=== PATIENT | female | born 1960 | race Caucasian/White ===

== ENCOUNTER 2017-04-19 10:03 | Emergency (ER) | payer MEDICAID ==
[2017-04-19] MEDS ORDERED: Aspirin Low Dose CHEW TAB* 81 MG PO ONE (11:17)
[2017-04-19 11:47] LABS: Hematocrit 42 % (35-47); Hemoglobin 13.9 g/dl (12.0-16.0); Mean Corpuscular HGB Conc 33 g/dl (31-36); Mean Corpuscular Hemoglobin 30 pg (27-31); Mean Corpuscular Volume 90 fL (80-97); Mean Platelet Volume 8 um3 (7.4-10.4); Red Blood Count 4.73 10^6/ul (4.0-5.4); Red Cell Distribution Width 12 % (10.5-15); White Blood Count 5.2 10^3/ul (3.5-10.8)
--- NOTE | 2017-04-19 11:58 | RAD ---
INDICATION: Chest pain. COMPARISON: Comparison is made with a prior study from November 13, 2013. TECHNIQUE: A portable view of the chest was obtained. FINDINGS: Cardiac and mediastinal contours appear to be within normal limits. The lungs are clear. No pleural effusion is seen. IMPRESSION: NO EVIDENCE FOR ACUTE DISEASE.
[2017-04-19 12:03] LABS: Albumin 3.7 g/dL (3.2-5.2); BUN/Creatinine Ratio 23.2 (8-20); Calcium 9.4 mg/dL (8.6-10.3); EGFR Non-African American 111.2 (>60); Globulin 2.8 g/dL (2-4); Potassium 4.2 mmol/L (3.5-5.0); Total Bilirubin 0.5 mg/dL (0.2-1.0); Total Protein 6.5 g/dL (6.4-8.9)
[2017-04-19 12:24] LABS: TSH (Thyroid Stimulating Horm) 1.17 mcIU/mL (0.34-5.60)
[2017-04-19 13:52] VITALS: BP 109/79
--- NOTE | 2017-04-19 18:39 | ED ---
HPI Chest Pain - HPI Summary HPI Summary: Patient presents with left sided neck pain which radiates to the right sided anterior chest and to the right posterior shoulder which has not improved with muscle relaxers. She also has been c/o fatigue recently and night sweats, although she states she has been going through menopause. She does not feel this is muscular. She is otherwise healthy. She has surgery scheduled soon for her knees, but denies other complaints. She is concerned the pain is cardiac. Pain is 8/10, intermittent and described as an aching. - History of Current Complaint Chief Complaint: EDGeneral Time Seen by Provider: 04/19/17 11:02 Timing: Intermittent, Lasting Hours Initial Severity: Moderate Current Severity: Moderate Pain Intensity: 7 Pain Scale Used: 0-10 Numeric Chest Pain Location: Right Anterior Chest Pain Radiates: Yes Chest Pain Radiates To:: Shoulder Character: Dull/Aching Aggravating Factor(s): Nothing Alleviating Factor(s): Nothing Associated Signs and Symptoms: Positive: Negative - Allergy/Home Medications Allergies/Adverse Reactions: Allergies Allergy/AdvReac Type Severity Reaction Status Date / Time No Known Allergies Allergy Verified 04/19/17 11:20 PMH/Surg Hx/FS Hx/Imm Hx Previously Healthy: Yes Endocrine/Hematology History: Denies: Hx Diabetes, Hx Thyroid Disease Cardiovascular History: Reports: Hx Angina, Hx Hypertension - better now, not on meds 02/2014, Other Cardiovascular Problems/Disorders - Cardiac cathX2 with blockage Denies: Hx Pacemaker/ICD Respiratory History: Reports: Hx Asthma, Hx Chronic Bronchitis, Hx Seasonal Allergies Denies: Hx Chronic Obstructive Pulmonary Disease (COPD) GI History: Denies: Hx Ulcer Musculoskeletal History: Reports: Hx Back Problems Sensory History: Reports: Hx Contacts or Glasses Denies: Hx Hearing Aid Opthamlomology History: Reports: Hx Contacts or Glasses Psychiatric History: Denies: Hx Panic Disorder - Cancer History Hx Chemotherapy: No Hx Radiation Therapy: No - Surgical History Surgery Procedure, Year, and Place: 2 biopsy blt breast tissue-benign, BLT foot bunions, Cardiac cath 8 years ago - Immunization History Hx Pertussis Vaccination: No Immunizations Up to Date: Unable to Obtain/Confirm Infectious Disease History: No Infectious Disease History: Denies: Hx Clostridium Difficile, Hx Hepatitis, Hx Human Immunodeficiency Virus (HIV), Hx of Known/Suspected MRSA, Hx Shingles, Hx Tuberculosis, Traveled Outside the [place] in Last 30 Days - Social History Occupation: Employed Full-time Lives: With Family Alcohol Use: Weekly Alcohol Amount: 2 ea 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) Hx Substance Use: No Substance Use Type: Reports: None Hx Tobacco Use: No Smoking Status (MU): Never Smoked Tobacco Have You Smoked in the Last Year: No Review of Systems Positive: Fatigue Eyes: Negative ENT: Negative Positive: Chest Pain Respiratory: Negative Gastrointestinal: Negative Positive: no symptoms reported, see HPI Positive: Myalgia - right sided shoulder pain Skin: Negative Neurological: Negative Psychological: Normal All Other Systems Reviewed And Are Negative: Yes Physical Exam Triage Information Reviewed: Yes Vital Signs On Initial Exam: Initial Vitals Temp Pulse Resp BP Pulse Ox 98.2 F 69 17 115/87 97 04/19/17 10:17 04/19/17 10:17 04/19/17 10:17 04/19/17 10:17 04/19/17 10:17 Vital Signs Reviewed: Yes Appearance: Positive: Well-Appearing, Well-Nourished Skin: Positive: Warm, Skin Color Reflects Adequate Perfusion Head/Face: Positive: Normal Head/Face Inspection Eyes: Positive: EOMI, ALONDRA, Conjunctiva Clear Neck: Positive: Supple, Nontender, No Lymphadenopathy Respiratory/Lung Sounds: Positive: Clear to Auscultation, Breath Sounds Present Cardiovascular: Positive: Normal, RRR, Pulses are Symmetrical in both Upper and Lower Extremities Abdomen Description: Positive: Soft Musculoskeletal: Positive: Pain @ - on palpatoin over the anterior chest and posterior right shoulder Neurological: Positive: Sensory/Motor Intact, Alert, Oriented to Person Place, Time, Speech Normal Psychiatric: Positive: Normal - [place] Coma Scale Coma Scale Total: 15 Diagnostics - Vital Signs Vital Signs Temp Pulse Resp BP Pulse Ox 04/19/17 13:30 60 12 109/79 99 04/19/17 13:00 58 20 129/105 98 04/19/17 12:30 60 17 137/95 98 04/19/17 12:00 58 17 120/79 96 04/19/17 11:39 61 12 134/84 96 04/19/17 11:00 65 17 142/83 99 04/19/17 10:44 66 21 96 04/19/17 10:34 98.2 F 66 18 137/91 96 04/19/17 10:17 98.2 F 69 17 115/87 97 - Laboratory Lab Results: Lab Results 04/19/17 04/19/17 04/19/17 Range/Units 11:25 11:25 11:25 WBC 5.2 (3.5-10.8) 10^3/ul RBC 4.73 (4.0-5.4) 10^6/ul Hgb 13.9 (12.0-16.0) g/dl Hct 42 (35-47) % MCV 90 (80-97) fL MCH 30 (27-31) pg MCHC 33 (31-36) g/dl RDW 12 (10.5-15) % Plt Count 246 (150-450) 10^3/ul MPV 8 (7.4-10.4) um3 Neut % (Auto) 58.7 (38-83) % Lymph % (Auto) 28.1 (25-47) % Ralls % (Auto) 8.3 (1-9) % Eos % (Auto) 4.0 (0-6) % Baso % (Auto) 0.9 (0-2) % Absolute Neuts (auto) 3.0 (1.5-7.7) 10^3/ul Absolute Lymphs (auto) 1.4 (1.0-4.8) 10^3/ul Absolute Monos (auto) 0.4 (0-0.8) 10^3/ul Absolute Eos (auto) 0.2 (0-0.6) 10^3/ul Absolute Basos (auto) 0 (0-0.2) 10^3/ul Absolute Nucleated RBC 0.01 10^3/ul Nucleated RBC % 0.2 INR (Anticoag Therapy) 0.90 (0.89-1.11) APTT 26.8 (26.0-36.3) seconds D-Dimer, Quantitative < 200 (Less Than 230) ng/mL Sodium 134 (133-145) mmol/L Potassium 4.2 (3.5-5.0) mmol/L Chloride 104 (101-111) mmol/L Carbon Dioxide 26 (22-32) mmol/L Anion Gap 4 (2-11) mmol/L BUN 13 (6-24) mg/dL Creatinine 0.56 (0.51-0.95) mg/dL Est GFR ( Amer) 143.0 (>60) Est GFR (Non-Af Amer) 111.2 (>60) BUN/Creatinine Ratio 23.2 H (8-20) Glucose 90 (70-100) mg/dL Lactic Acid (0.5-2.0) mmol/L Calcium 9.4 (8.6-10.3) mg/dL Magnesium 2.0 (1.9-2.7) mg/dL Total Bilirubin 0.50 (0.2-1.0) mg/dL AST 21 (13-39) U/L ALT 22 (7-52) U/L Alkaline Phosphatase 119 H (34-104) U/L Total Creatine Kinase 123 (10-223) U/L CK-MB (CK-2) 8.0 H (0.6-6.3) ng/mL Myoglobin 33.0 (14.3-65.8) ng/mL Troponin I 0.00 (<0.04) ng/mL B-Natriuretic Peptide ( - 100) pg/mL Total Protein 6.5 (6.4-8.9) g/dL Albumin 3.7 (3.2-5.2) g/dL Globulin 2.8 (2-4) g/dL Albumin/Globulin Ratio 1.3 (1-3) TSH 1.17 (0.34-5.60) mcIU/mL 04/19/17/ Range/Units 11:25 11:25 WBC (3.5-10.8) 10^3/ul RBC (4.0-5.4) 10^6/ul Hgb (12.0-16.0) g/dl Hct (35-47) % MCV (80-97) fL MCH (27-31) pg MCHC (31-36) g/dl RDW (10.5-15) % Plt Count (150-450) 10^3/ul MPV (7.4-10.4) um3 Neut % (Auto) (38-83) % Lymph % (Auto) (25-47) % Ralls % (Auto) (1-9) % Eos % (Auto) (0-6) % Baso % (Auto) (0-2) % Absolute Neuts (auto) (1.5-7.7) 10^3/ul Absolute Lymphs (auto) (1.0-4.8) 10^3/ul Absolute Monos (auto) (0-0.8) 10^3/ul Absolute Eos (auto) (0-0.6) 10^3/ul Absolute Basos (auto) (0-0.2) 10^3/ul Absolute Nucleated RBC 10^3/ul Nucleated RBC % INR (Anticoag Therapy) (0.89-1.11) APTT (26.0-36.3) seconds D-Dimer, Quantitative (Less Than 230) ng/mL Sodium (133-145) mmol/L Potassium (3.5-5.0) mmol/L Chloride (101-111) mmol/L Carbon Dioxide (22-32) mmol/L Anion Gap (2-11) mmol/L BUN (6-24) mg/dL Creatinine (0.51-0.95) mg/dL Est GFR ( Amer) (>60) Est GFR (Non-Af Amer) (>60) BUN/Creatinine Ratio (8-20) Glucose (70-100) mg/dL Lactic Acid 0.9 (0.5-2.0) mmol/L Calcium (8.6-10.3) mg/dL Magnesium (1.9-2.7) mg/dL Total Bilirubin (0.2-1.0) mg/dL AST (13-39) U/L ALT (7-52) U/L Alkaline Phosphatase (34-104) U/L Total Creatine Kinase (10-223) U/L CK-MB (CK-2) (0.6-6.3) ng/mL Myoglobin (14.3-65.8) ng/mL Troponin I (<0.04) ng/mL B-Natriuretic Peptide 27 ( - 100) pg/mL Total Protein (6.4-8.9) g/dL Albumin (3.2-5.2) g/dL Globulin (2-4) g/dL Albumin/Globulin Ratio (1-3) TSH (0.34-5.60) mcIU/mL Result Diagrams: 04/19/17 11:25 04/19/17 11:25 Lab Statement: Any lab studies that have been ordered have been reviewed, and results considered in the medical decision making process. Chest Pain Course/Dx - Course Course Of Treatment: Trop negative. UA negative. Chest xray negative. Patient encouraged to follow up with PCP regarding chest pain. Medications were reveiwed with patient. Encouarged to follow up with PCP or return to ED for worsening symptoms. Return precautions given. Patient understands and agrees with plan. Ok for discharge. - Chest Pain Differential Diagnosis/HQI/PQRI: Acute [place], Angina, CHF, Chest Wall - Diagnoses Provider Diagnoses: Chest wall pain Discharge - Discharge Plan Condition: Stable Disposition: HOME Patient Education Materials: Chest Wall Pain (ED) Referrals: Ngozi Buck MD [Primary Care Provider] - Additional Instructions: Follow up with your PCP ROSALIO Return to the ED if symptoms persist
== END 2017-04-19 13:51 | disposition home or self-care (01) ==
LOC: ED 10:03
DX: R07.89 Other chest pain (principal)
CPT/HCPCS: 36415; 71010; 80053; 82550; 82553; 83605; 83735; 83874; 83880; 84443; 84484; 85025; 85379; 85610; 85730; 93005; 99282

== ENCOUNTER 2018-03-15 11:30 | Emergency (ER) | payer MEDICAID, OTHER ==
--- OUTSIDE RECORDS SUMMARY | 2018-03-15 11:44 | XMS REPORT ---
:1960 External Reference #:[id number] Author Organization [facility] Address [address] [address] Phone [phone] Care Team Providers Name Role Phone Ngozi Saavedra MD Care Team Information Special Education Math Teacher Unavailable Payers Type Date Identification Numbers Payment Provider Subscriber Health Maintenance Policy Number: [id number] [facility] Community Plan Kirti Butterfield Organization (HMO) PayID: [id number] [address] [place] [address] Medigap Part B Policy Number: [id number] Medicaid ### >02/16/12 Kirti Butterfield PayID: [id number] [address] [place] [address] Workers Compensation Onset: 07/02/2007 Policy Number: Milind Butterfield [id number] [address] [place] [address] Problems Date Description Provider Status Onset: 05/14/2008 Benign essential hypertension Ngozi Saavedra MD Active Onset: 07/23/2015 Essential hypertension Ngozi Saavedra MD Active Onset: 05/11/2017 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 Family History Date Family Member(s) Problem(s) Comments Mother Heart Disease Mother due to ME () Onset: (age 38 Mother ME CABG, AT 58 FROM Years) ME First Brother Diabetes, Adult Paternal Grandmother Cancer, Ovarian Maternal Grandmother Diabetes, Adult Paternal Aunts Cancer, Ovarian Maternal Aunts Heart Disease Third Maternal Aunt due to Kidney () Disease Social History Type Date Description Comments Marital Status Smoke-Free Smoke-Free Home Yes Pets 2 dogs Occupation Currently Working [employer] RIGHT-handed Cigarette Use Never Smoked Cigarettes ETOH Use Occasionally consumes alcohol Recreational Drug Use Denies Drug Use Smoking Patient has never smoked Allergies, Adverse Reactions, Alerts Date Description Reaction Status Severity Comments 04/12/2017 NKDA active 09/15/2005 NKDA inactive Medications Medication Date Status Form Strength Qnty SIG Indications Ordering Provider Tobramycin-Dexamet 03/10 Active Suspension 0.3-0.1% 10ml 2 drop in H00.012 mecca RIGHT eye Ngozi every 6 MD Romain hours for 7days Baclofen 03/10 Active Tablets 10mg 60tab take 1 M54.2 Quentin s tablet by Ngozi mouth up MD Romain to two times a day as needed for muscle response Tramadol HCL 03/10 Active Tablets 50mg 45tab 1tab by M54.2 Quentin s mouth up Ngozi to two MD Romain times daily prn extreme pain Meloxicam 12/13 Active Tablets 15mg 30tab take 10/05 M05.769 Quentin s to 1 Ngozi tablet by MD Romain mouth once daily as needed Vitamin D 12/13 Active Capsules 27130Xpgh 8caps 1 by Quentin, (Ergocalciferol) mouth qwk Ngozi x 8 wks MD Romain Vitamin D 12/13 Active Capsules 2000Unit 1 by E55.9 Osiris mouth Ngozi every day MD Romain Amoxicillin 09/14 Active Tablets 500mg 21tab 1 by K08.89 Quentin s mouth Ngozi three MD Romain times a day Hydroxychloroquine 05/11 Active Tablets 200mg 60tab 1 by M06.00 Quentin , s mouth Ngozi twice a MD Romain day Duloxetine HCL 04/[address] 60mg 60cap take one M06.00 Quentin Part s capsule Ngozi by mouth MD Romain bid Phentermine HCL 02/19 Active Capsules 30mg 30cap take one E66.9 Quentin s capsule Ngozi by mouth MD Romain every morning; maximum daily dose=1 Z68.32 Folic Acid 07/05 Hx Tablets 1mg 90tab 1 by mouth M06.0 Quentin s every day 0 Ngozi MD Romain - 08/06 Carisoprodol 07/05 Hx Tablets 350mg 30tab 1/2-1 by M54.2 Quentin s mouth every Ngozi Hoyos MD - night at 03/10 bedtime as needed muscle spasm Hydrocodone-Acetaminophe 07/05 Hx Tablets 5-325 30tab 1 by mouth M17.0 Quetnin, mg s three times a Ngozi Hoyos MD - day as needed 12/13 Vitamin D-400 07/05 Hx Tablets 400Un 1 by mouth E55.9 Quentin it every day Ngozi Hoyos MD - 12/13 Prednisone 07/05 Hx Tablets 10mg 30tab 4tabs qam x 3 M06.0 Quentin s days then 3 0 Ngozi Hoyos MD - po qam x 3d 08/06 then 2 po qam x 3d then 1 po qam x 3 d Gabapentin 07/05 Hx Tablets 600mg 90tab Take One N95.1 Quentin s Tablet By Ngozi Hoyos MD - Mouth Three 12/13 Times A Day Gabapentin 07/02 Hx Capsules 300mg 60cap Take 1 To 2 N95.1 Quentin s Capsuls By Ngozi Hoyos MD - Mouth Every 07/05 Night, Then May Increase To 1 Capsule Two Times A Day And 2 Every Night AT Bedtime Hydroxychloroquine 06/03 Hx Tablets 200mg mecca, Ngozi Hoyos MD - 07/05 Methotrexate 06/03 Hx Tablets 2.5mg 48tab 4 by mouth M06.0 Quentin s every week 0 Ngozi Hoyos MD - 08/06 Prednisone 05/11 Hx Tablets 5mg 1 by mouth M06.0 Quentin every day 0 Ngozi Hoyos MD - 07/05 Lidoderm 04/22 Hx Patches 5% 30uni one every day Omayra ts on for 12 and Melissa Romero, - then off for RN MS [employer] 05/11 12 hours Duloxetine HCL 04/[address] Part 30mg 7caps 1 by mouth M19.9 Quentin every day x 1 0 Ngozi Hoyos MD - week 05/11 Meloxicam 03/02 Hx Tablets 15mg 30tab take 1/2 - 1 M17.0 s tablet Ngozi Hoyos MD - everyday as 05/11 needed Gabapentin 03/02 Hx Capsules 300mg 60cap take 1 to 2 N95.1 s capsules by Ngozi Hoyos MD - mouth every 05/11 night at bedtime then may inc to 1 by mouth twice a day 2 every night at bedtime Naproxen 12/04 Hx Tablets 500mg 60tab take 1 tablet M54.5 s by mouth Melissa C, - every 12 RN [facility] 03/02 hours needed for pain Cyclobenzaprine HCL 12/04 Hx Tablets 10mg 30tab take one-half M54.5 s tablet by Ngozi Hoyos MD - mouth every 8 05/11 hours needed for muscle spasm. may take 1 tablet at bedtime Lidocaine 12/04 Hx Patches 5% 30uni apply daily M54.5 ts for 12 hours Melissa Romero, - and remove RN [facility] 04/02 for 12 hours Macrobid 12/04 Hx Capsules 100mg 14cap 1 tab by R31.9 s mouth twice a Mleissa Romero, - day x 7 d RN [facility] 03/02 Meloxicam 10/08 Hx Tablets 7.5mg 90tab take 1 to 2 M17.0 s tablets by Melissa Romero, - mouth every RN [facility] Naprosyn 07/06 Hx Tablets 500mg 60tab take one M17.0 s tablet by Ngozi Hoyos MD - mouth two 10/08 times a day with food as needed Celebrex 10/28 Hx Capsules 200mg 1 po qd to M23.3 bid prn prn 07 Ngozi Hoyos MD - 07/06 Dexilant 07/[address] 60mg 30cap 1 by mouth K29.0 s bid x 2 d 0 Ngozi Hoyos MD - 07/06 Duloxetine HCL [address] Part 30mg 7caps 1 by mouth M79.1 every day x 1 Ngozi Hoyos MD - week then 60 / mg every day /2014 Amoxicillin 07/23 Hx Tablets 875mg 20tab 1 by mouth J01.0 s twice a day 0 Ngozi Hoyos MD - 07/29 Fluticasone Propionate 07/23 Hx Suspension 50mcg 16gm 2 sprays in J01.0 [place], / each nostril 0 Ngozi Hoyos MD - daily 10/08 Duloxetine HCL 07/[address] Part 60mg 60cap 1 by mouth M79.1 s every day Ngozi Hoyos MD - 07/06 Alprazolam 02/04 Hx Tablets 0.25m 20tab 1/2-2 by F41.0 Quentin g s mouth three Ngozi Hoyos MD - times a day 07/06 as needed anxiety/insom black Meloxicam 04/12 Hx Tablets 7.5mg 30tab take 1-2 M17.0 s tablet by Melissa Romero, - mouth every RN [facility] 07/06 day for pain Hydrocodone-Acetaminophe 04/12 Hx Tablets 5-325 30tab 1-2 tab by M17.0 Osiris, mg s mouth twice a Ngozi Hoyos MD - day as needed 05/11 pain Cyclobenzaprime 04/12 Hx Tablets 10mg 30tab 1 tab at 401.1 s bedtime as Melissa Romero, - needed muscle RN MS [facility] 04/12 spasm Cyclobenzaprine HCL 04/12 Hx Tablets 10mg 30tab 1 every night 723.1 Niki Diaz s at bedtime MD Bessie - and 1/2 tab 20 every 8 hours as needed muscle spasm. Cipro 04/27 Hx Tablets 250mg 14tab 1 po bid x 7 788.4 s days 1 Melissa Romero, - RN MS [facility] 04/12 Phentermine HCL 03/17 Hx Capsules 30mg 30cap 1 by mouth 278.0 s every in the 2 Melissa Romero, - morning RN MS [facility] 02/04 Cipro 05/16 Hx Tablets 250mg 14tab 1 po bid 599.7 [place] s 0 Ngozi Hoyos MD - 03/17 Oxycodone/Acetaminophen 05/16 Hx Tablets 5-325 20tab 1-2 po qid 724.2 Omayra mg s prn pain Melissa Romero, Airam [employer]ER MS [employer] 04/12 724.1 Cephalexin 01/11/2012 - Hx Capsules 500mg 21caps 1 po tid 682.9 [facility] , 03/17/2013 Ngozi Hoyos MD Hydrocodone/Acet 01/11/2012 - Hx Tablets 5-500mg 30tabs 1-2 po 724.1 [place], aminophen 04/12/2014 qid prn Melissa Romero RN MS [facility] 724.2 Lisinopril 01/11/2012 - Hx Tablets 10mg 90tabs take one I10 [place], 07/06/2016 tablet by Melissa mouth every JOHANNA Romero MS day [employer] Azithromycin 11/27/2011 - Hx Tablets 250mg 1Pack 2 tabs day 466.0 [facility], 01/11/2012 one and 1 tab Ngozi daily etta Hoyos MD gone Out Of Work 06/03/2011 - Hx For may return to [place], 06/13/2011 Medical full duty on Melissa Reasons jun. 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 No Work 04/20/2011 - Hx For 04/13- 04/27, 789.0 [place], 04/30/2011 Medical returning to 4 Melissa Reasons full duty on JOHANNA Romero MS 04/27/11 [employer] Amoxicillin 04/13/2011 - Hx Tablets 875mg 20tabs 1 po bid [facility], 04/30/2011 Ngozi Hoyos MD Azithromycin 10/23/2010 - Hx Tablets 250mg 6tabs 2 tabs day [facility], 04/20/2011 one and 1 tab Ngozi daily MD ji Marks Robitussin ac 10/17/2010 - Hx 120ml 10 ml qid prn 461.0 [place], 04/20/2011 Ngozi Hoyos MD Amoxicillin 10/17/2010 - Hx Tablets 500mg 30tabs 1 po tid 461.0 [place] , 04/20/2011 Ngozi Hoyos MD Carisoprodol 06/23/2010 - Hx Tabs 350mg 30tabs take 1 tablet 401.1 [place], 04/12/2014 by mouth Melissa every 8 hours Heather RN MS and at [facility] bedtime as needed for muscle spasms Blood Draw 02/04/2010 - Hx cbc, cmp, 278.0 [place], 07/15/2010 lipid panel, 2 Ngozi TSH, 25 oh MD Romain vit D, insulin, iron panel dx: heavy menses, weight gain Clarinex 02/04/2010 - Hx Tablets 5mg 90tabs 1 po qd prn 477.0 [place], 03/17/2013 Ngozi Hoyos MD Hydrocodone-Acet 11/01/2009 - Hx Tablets 5-500mg 40tabs 1-2 po qid 724.1 [place], aminophen 01/11/2012 prn Ngozi Hoyos MD Work Note 11/01/2009 - Hx PT had 724.1 [place], 11/06/2009 appt today Ngozi Hoyos MD Celebrex 11/01/2009 - Hx Capsules 200mg Sample 1 po qd bid X 724.1 [place], 11/11/2009 A Few Days Ngozi Hoyos MD Astepro 10/14/2009 - Hx Solution 0.15% 2 P Bilat qd 461.0 [place], 07/15/2010 Ngozi Hoyos MD Amoxicillin 10/14/2009 - Hx Tablets 875mg 20tabs 1 po bid 461.0 [place] , 11/01/2009 Ngozi Hoyos MD Robitussin ac 06/24/2009 - Hx 120ml 10 ml qid prn 466.0 [place], 10/14/2009 Ngozi Hoyos MD Amoxicillin 06/24/2009 - Hx Capsules 500mg 30caps 1 po tid 10 466.0 [place], 10/14/2009 days Ngozi Hoyos MD Work Note 06/24/2009 - Hx pl excuse 466.0 [place], 10/14/2009 from work Ngozi today and MD Romain tomm Work Note 03/15/2009 - Hx please excuse 465.9 [place], 03/20/2009 from work Ngozi 03/12-03/15 MD Romain Amoxicillin 12/07/2008 - Hx Tablets 875mg 28tabs 1 po bid 383.0 [place] , 03/15/2009 0 Ngozi Hoyos MD Azithromycin 11/01/2008 - Hx Tablets 250mg 6tabs 2 tabs day 465.9 [place], 11/11/2008 one and 1 tab Melsisa daily till Heather RN MS gone [employer]ISING [employer] No Work 11/01/2008 - Hx D/T 11/01, 11/02/08 465.9 [place], 03/15/2009 Illness May return to Melissa full duty Heather RN MS next [employer] scheduled day, Blood Draw 08/27/2008 - Hx cbc, cmp, [place], 11/01/2008 TSH, lipid Ngozi Hoyos MD dx: HTN, 272.0 Phentermine HCL 07/30/2008 - Hx Capsules 30mg 30caps 1 po q am 278.0 [place], 03/17/2013 2 Ngozi Hoyos MD Ibuprofen 07/30/2008 - Hx Tablets 800mg 90tabs One PO Q8HRS 401.1 [place], 04/12/2014 With Food prn Ngozi Hoyos MD Keflex 07/30/2008 - Hx Capsules 500mg 21caps 1 PO tid X 7 682.8 [place] , 08/27/2008 D Ngozi Hoyos MD Diflucan 04/13/2008 - Hx Tablets 150mg 1tabs One Tab PO [place], 11/01/2008 Times One Day Ngozi Hoyos MD Lisinopril 02/21/2008 - Hx Tablets 10mg 90tabs 1 PO qd 401.1 [place], 07/15/2010 Ngozi Hoyos MD Phentermine HCL 01/24/2008 - Hx Capsules 15mg 30caps 1 po qam [place], 07/30/2008 Ngozi Hoyos MD Blood Draw 01/20/2008 - Hx bmp, serum [place], 08/27/2008 osmolarity, Ngozi lipid panel, MD Romain ast/alt dx: hyponatremia, 272.2 Blood Draw 12/02/2007 - Hx cbc, cmp, 272.0 [facility], 01/20/2008 TSH, lipid Ngozi Hoyos MD dx: 272.0, wt gain Zithromax Z-Yan 12/02/2007 - Hx Tablets 250mg 1Pack as Dir 466.0 [facility], 02/21/2008 Ngozi Hoyos MD Xanax 12/02/2007 - Hx Tablets 0.25mg 12tabs one half-two 308.9 [facility], 11/01/2008 po tid prn Ngozi anxiety MD Romain Darvocet-N 100 08/12/2007 - Hx Tablets 100 40tabs 1 po qid prn 401.1 [facility], 11/01/2008 pain Ngozi Hoyos MD Phentermine HCL 07/15/2007 - Hx Capsules 30mg 30caps 1 po q am [facility] , 12/02/2007 Ngozi Hoyos MD Lidoderm 04/01/2007 - Hx Patches 5% 30units Apply as [place], 11/01/2008 Directed 1-3 Melissa Patches On X JOHANNA Romero MS 12 HRS [employer]ISING [employer] Oxycodone & 01/10/2007 - Hx Caplets 5mg;500 40caps 1 tab every 4 401.1 [place], Acetaminophen 07/15/2007 mg hours as Melissa needed for JOHANNA Romero MS pain [employer] Fastin 01/10/2007 - Hx 15mgS 30units 1 qd [place], 07/15/2007 Melissa Romero RN MS [employer] Soma 12/28/2006 - Hx Tablets 350mg 30tabs 1 tab every 8 [facility], 06/23/2010 hrs and hs Ngozi prn muscle MD Romain spasms. Amoxicillin 09/29/2006 - Hx Tablets 875mg 20tabs 1 PO bid 465.9 [place], 10/09/2006 Melissa Romero RN MS [employer] Robitussin A-c 09/29/2006 - Hx Syrup 100mg;10m 120ml 1-2 tsp q4 465.9 [place], 10/09/2006 g/5ML hrs prn cough Melissa Romero RN MS [employer] Entex Pse 09/29/2006 - Hx Tablets 600mg;120 20tabs one tab qd 465.9 [place], 10/09/2006 mg for Melissa sinus/chest Heather RN MS congestion [employer] Out Of Work 09/29/2006 - Hx Due To An 09/29-10/02. 465.9 [place], 11/10/2006 Illness may return Melissa Romero RN MS scheduled day [employer]ISING [employer] to full duty. Ibuprofen 05/18/2006 - Hx Tablets 800mg 100tabs 1 Q6 HRS prn 726.7 [place], 08/12/2007 Pain 3 Melissa Romero RN MS [employer] Clarinex 02/02/2006 - Hx Tablets 5mg 30tabs 1 PO qd prn V15.0 [place], 11/01/2008 9 Melissa Romero RN MS [employer] Fastin 12/01/2005 - Hx 30mg 30units 1 po qd in am 278.0 [facility], 01/10/2007 0 Ngozi Hoyos MD Mobic 12/01/2005 - Hx Tablets 7.5mg 90tabs 1-2 PO qd 959.1 [facility], 07/30/2008 1 Ngozi Hoyos MD Naproxen 10/06/2005 - Hx Tablets 500mg 60tabs 1 po bid prn 717.3 [facility], 12/01/2005 with food Ngozi Hoyos MD Physical Therapy 10/06/2005 - Hx eval and 401.1 [facility], 10/07/2005 treat r knee Ngozi pain and MD Romain cerviclagia Levaquin 09/15/2005 - Hx Tablets 750mg 7tabs 1 po qd 466.0 [facility], 10/06/2005 Ngozi Hoyos MD Albuterol Mdi 09/15/2005 - Hx 1Can 2 p qid prn 466.0 [facility], 10/06/2005 Ngozi Hoyos MD Robitussin ac 09/15/2005 - Hx 120cc 10 ml qid 466.0 [facility], 10/06/2005 Ngozi Hoyos MD Darvocet N 100 11/04/2004 - Hx Tablets 100mg;650 40tabs 1-2 po qid [place], 10/06/2005 mg prn pain Melissa Romero RN MS [employer] Soma 11/04/2004 - Hx Tablets 350mg 30tabs 1 hs prn Omayra, 10/06/2005 muscle spasms Melissa Romero RN MS [employer] Amoxicillin 11/04/2004 - Hx Capsules 500mg 30caps 1 po tid Omayra, 09/15/2005 Melissa Romero RN MS [employer] Robitussin A-c 11/04/2004 - Hx Syrup 100mg;10m 120ml 1-2 tsp q4 Omayra , 09/15/2005 g/5ML hrs prn cough Melissa Romero RN MS [employer] Medications Administered in Office Medication Date Status Form Strength Qnty SIG Indications Ordering Provider Depo Medrol 80 Administered Injection [place], MG 017 Ngozi Hoyos MD Depo Medrol 80 Administered Injection [place], MG 017 Ngozi Hoyos MD Depo Medrol 80 Administered Injection [place], MG 015 Ngozi MD Romain Depo Medrol 80 Administered Injection [place], MG 015 Ngozi MMD Torodol Administered Injection [place], Injection 15 010 Ngozi MG Dose M, Torodol Administered Injection [place], Injection 15 010 Ngozi MG Dose MMD Torodol Administered Injection [place], Injection 15 010 Ngozi MG Dose M, Torodol Administered Injection [place], Injection 15 010 Ngozi MG Dose MD Romain Immunizations CPT Code Status Date Vaccine Lot # [id number] Given 07/23/2015 Influenza Vac, 3 Yrs & Older, Quadrivalent, [id number] [place] Use [id number] Given 02/04/2010 Tdap (Adacel) Ages 7 And Above Only [id number] Refused 07/05/2017 Influenza Vac, 3 Yrs & Older, Quadrivalent, Split, [place] Use [id number] Refused 03/02/2017 Influenza Vac, 3 Yrs & Older, Quadrivalent, Split, Im Use Vital Signs Date Vital Result Comment 03/10/2018 Weight 207.25 lb Heart Rate 94 /min BP Systolic 142 mmHg BP Diastolic 85 mmHg Height 66 inches 5'6" BMI (Body Mass Index) 33.4 kg/m2 12/13/2017 Weight 203.00 lb Heart Rate 84 /min BP Systolic 124 mmHg BP Diastolic 68 mmHg Height 66 inches 5'6" BMI (Body Mass Index) 32.8 kg/m2 09/14/2017 Body Temperature 98.4 F Weight 203.00 lb Heart Rate 88 /min BP Systolic 114 mmHg BP Diastolic 78 mmHg Height 66 inches 5'6" BMI (Body Mass Index) 32.8 kg/m2 08/06/2017 Weight 202.00 lb Heart Rate 80 /min BP Systolic 138 mmHg BP Diastolic 84 mmHg Height 66 inches 5'6" BMI (Body Mass Index) 32.6 kg/m2 07/05/2017 Weight 202.00 lb Heart Rate 80 /min BP Systolic 140 mmHg BP Diastolic 88 mmHg Height 66 inches 5'6" BMI (Body Mass Index) 32.6 kg/m2 05/11/2017 Weight 202.12 lb Heart Rate 86 /min BP Systolic 138 mmHg BP Diastolic 86 mmHg Height 66 inches 5'6" BMI (Body Mass Index) 32.6 kg/m2 Urine Dipstick - Blood NEGATIVE Urine Dipstick - Protein NEGATIVE Urine Dipstick - Glucose NEGATIVE Urine Dipstick - Leukocytes TRACE 04/22/2017 Weight 202.12 lb Heart Rate 93 /min BP Systolic 115 mmHg BP Diastolic 78 mmHg Height 66 inches 5'6" BMI (Body Mass Index) 32.6 kg/m2 04/02/2017 Weight 201.00 lb Heart Rate 76 /min BP Systolic 132 mmHg BP Diastolic 82 mmHg Height 66 inches 5'6" BMI (Body Mass Index) 32.4 kg/m2 03/02/2017 Weight 200.00 lb Heart Rate 76 /min BP Systolic 140 mmHg BP Diastolic 88 mmHg Height 66 inches 5'6" BMI (Body Mass Index) 32.3 kg/m2 12/04/2016 Body Temperature 97.8 F Weight 197.38 lb Heart Rate 70 /min BP Systolic 127 mmHg BP Diastolic 84 mmHg Height 66 inches 5'6" BMI (Body Mass Index) 31.9 kg/m2 10/08/2016 Weight 199.50 lb Heart Rate 81 /min BP Systolic 154 mmHg BP Diastolic 86 mmHg Height 66 inches 5'6" BMI (Body Mass Index) 32.2 kg/m2 07/06/2016 Weight 204.00 lb Heart Rate 84 /min BP Systolic 124 mmHg BP Diastolic 76 mmHg Height 66 inches 5'6" BMI (Body Mass Index) 32.9 kg/m2 10/28/2015 Weight 205.12 lb Heart Rate 99 /min BP Systolic 115 mmHg BP Diastolic 79 mmHg Height 66 inches 5'6" BMI (Body Mass Index) 33.1 kg/m2 07/29/2015 Weight 202.00 lb Heart Rate 76 /min BP Systolic 138 mmHg BP Diastolic 84 mmHg Height 66 inches 5'6" BMI (Body Mass Index) 32.6 kg/m2 07/23/2015 Weight 203.00 lb Heart Rate 77 /min BP Systolic 100 mmHg BP Diastolic 71 mmHg Height 66 inches 5'6" BMI (Body Mass Index) 32.8 kg/m2 02/19/2015 Weight 198.38 lb Heart Rate 73 /min BP Systolic 129 mmHg BP Diastolic 86 mmHg Height 66 inches 5'6" BMI (Body Mass Index) 32.0 kg/m2 02/04/2015 Weight 196.00 lb Heart Rate 80 /min BP Systolic 132 mmHg BP Diastolic 86 mmHg Height 66 inches 5'6" BMI (Body Mass Index) 31.6 kg/m2 04/12/2014 Weight 208.00 lb Heart Rate 81 /min BP Systolic 150 mmHg BP Diastolic 91 mmHg 04/27/2013 Weight 192.00 lb Heart Rate 82 /min BP Systolic 109 mmHg BP Diastolic 75 mmHg 03/17/2013 Weight 197.00 lb Heart Rate 82 /min BP Systolic 142 mmHg Has Not Taken BP Meds BP Diastolic 87 mmHg Has Not Taken BP Meds 05/16/2012 Weight 191.00 lb Heart Rate 76 /min BP Systolic 120 mmHg BP Diastolic 80 mmHg Height 66 inches 5'6" BMI (Body Mass Index) 30.8 kg/m2 01/11/2012 Weight 194.00 lb Heart Rate 96 /min BP Systolic 143 mmHg BP Diastolic 85 mmHg 11/27/2011 Body Temperature 97.5 F Weight 192.00 lb Heart Rate 72 /min BP Systolic 140 mmHg BP Diastolic 88 mmHg BP Systolic Recheck 125 mmHg BP Diastolic Recheck 80 mmHg Height 66 inches 5'6" BMI (Body Mass Index) 31.0 kg/m2 04/30/2011 Weight 190.00 lb Heart Rate 75 /min BP Systolic 124 mmHg BP Diastolic 77 mmHg 04/20/2011 Weight 194.00 lb Heart Rate 68 /min BP Systolic 122 mmHg BP Diastolic 75 mmHg 10/17/2010 Body Temperature 97.2 F Weight 201.00 lb Heart Rate 80 /min BP Systolic 130 mmHg BP Diastolic 80 mmHg 07/15/2010 Weight 192.00 lb Heart Rate 80 /min BP Systolic 130 mmHg BP Diastolic 78 mmHg 02/04/2010 Weight 202.00 lb Heart Rate 80 /min BP Systolic 130 mmHg BP Diastolic 76 mmHg 11/01/2009 Weight 201.00 lb Heart Rate 76 /min BP Systolic 110 mmHg BP Diastolic 70 mmHg 10/14/2009 Body Temperature 97.1 F Weight 201.00 lb Heart Rate 80 /min BP Systolic 120 mmHg BP Diastolic 78 mmHg 06/24/2009 Weight 195.00 lb Heart Rate 91 /min BP Systolic 143 mmHg BP Diastolic 95 mmHg 03/15/2009 Body Temperature 98.1 F Weight 191.00 lb Heart Rate 68 /min BP Systolic 110 mmHg BP Diastolic 76 mmHg 12/07/2008 Body Temperature 97.2 F Weight 193.00 lb Heart Rate 80 /min BP Systolic 130 mmHg BP Diastolic 70 mmHg 11/01/2008 Body Temperature 97.3 F Weight 194.00 lb Heart Rate 78 /min BP Systolic 129 mmHg BP Diastolic 79 mmHg 10/26/2008 Weight 195.00 lb Heart Rate 64 /min BP Systolic 128 mmHg BP Diastolic 66 mmHg 08/27/2008 Weight 200.00 lb Heart Rate 80 /min BP Systolic 130 mmHg BP Diastolic 70 mmHg 07/30/2008 Body Temperature 97.3 F Weight 198.00 lb Heart Rate 76 /min BP Systolic 110 mmHg BP Diastolic 78 mmHg 05/14/2008 Weight 199.00 lb Heart Rate 84 /min BP Systolic 112 mmHg BP Diastolic 64 mmHg 02/21/2008 Weight 200.00 lb Heart Rate 82 /min BP Systolic 140 mmHg BP Diastolic 96 mmHg 12/02/2007 Weight 208.00 lb Heart Rate 87 /min BP Systolic 131 mmHg BP Diastolic 87 mmHg Urine Dipstick - Blood NEGATIVE Urine Dipstick - Protein NEGATIVE Urine Dipstick - Glucose NEGATIVE 08/12/2007 Weight 204.00 lb Heart Rate 80 /min BP Systolic 150 mmHg BP Diastolic 100 mmHg 07/15/2007 Weight 203.00 lb Heart Rate 76 /min BP Systolic 140 mmHg BP Diastolic 88 mmHg 01/10/2007 Weight 202.00 lb Heart Rate 64 /min BP Systolic 126 mmHg BP Diastolic 80 mmHg 09/29/2006 Body Temperature 97.5 F Weight 196.00 lb Heart Rate 70 /min BP Systolic 156 mmHg BP Diastolic 86 mmHg 07/08/2006 Weight 194.00 lb Heart Rate 90 /min BP Systolic 138 mmHg BP Diastolic 84 mmHg 05/18/2006 Weight 194.00 lb Heart Rate 88 /min BP Systolic 120 mmHg BP Diastolic 86 mmHg 02/02/2006 Weight 199.00 lb Heart Rate 80 /min BP Systolic 128 mmHg BP Diastolic 78 mmHg 12/01/2005 Weight 210.00 lb Heart Rate 72 /min BP Systolic 142 mmHg BP Diastolic 88 mmHg 10/06/2005 Weight 195.00 lb Heart Rate 74 /min BP Systolic 131 mmHg BP Diastolic 84 mmHg 09/15/2005 Body Temperature 98.1 F Weight 209.00 lb Heart Rate 88 /min BP Systolic 133 mmHg BP Diastolic 81 mmHg 11/04/2004 Body Temperature 98.6 F Weight 205.00 lb Heart Rate 76 /min BP Systolic 132 mmHg BP Diastolic 82 mmHg Urine Dipstick - Blood NEGATIVE Urine Dipstick - Protein NEGATIVE Urine Dipstick - Glucose NEGATIVE Results Test Date Test Result H/L Range Note Laboratory test finding 03/10/2018 Ferritin <pending> Laboratory test finding 03/10/2018 Folate <pending> Vit D 25Oh <pending> Laboratory test finding 12/13/2017 [facility] Pap SEE NOTE 1 CBC With Auto Diff 12/13/2017 WBC 5.5 K/uL 4.1-11.0 2 RBC 4.95 M/uL 4.00-5.40 2 Hemoglobin 14.6 gm/dL 12.0-16.0 2 Hematocrit 42.6 % 36.0-47.0 2 MCV 86.1 fL 80.0-97.0 2 MCH 29.6 pg 27.0-32.0 2 MCHC 34.3 g/dL 32.0-36.0 2 RDW 12.7 % 11.5-14.5 2 PLT Count 276 K/ul 140-400 2 MPV 8.7 [place] 7.1-10.7 2 Neutrophil 58.3 % 35.0-75.0 2 Lymphocyte 30.4 % 16.0-52.0 2 Monocyte 7.3 % 2.0-10.0 2 Eosinophil 3.0 % 0.0-5.0 2 Basophil 1.0 % 0.0-4.0 2 Abs Neutrophils 3.2 K/uL 2.1-8.0 2 Abs Lymphocytes 1.7 K/uL 0.8-5.5 2 Abs Monocytes 0.4 K/uL 0.1-1.0 2 Abs Eosinophils 0.2 K/uL 0.0-0.5 2 Abs Basophils 0.1 K/uL 0.0-0.3 2 Comprehensive Met Panel-FCMG 12/13/2017 Sodium 142 mmol/L 135-146 2, 3 Potassium 4.1 mmol/L 3.5-5.2 2 Chloride# 106 mmol/L 97-110 2, 4 Carbon Dioxide 28 mmol/L 24-34 2 Glucose 87 mg/dL 70-105 2 BUN 15 mg/dL 6-26 2 Creatinine 0.5 mg/dL 0.5-1.4 2 Calcium 10.0 mg/dL 8.5-10.2 2 Total Protein 6.2 g/dL 6.0-8.0 2 Albumin 4.1 g/dL 3.6-4.9 2 Globulin 2.1 g/dL 2.0-3.5 2 A/G Ratio 2.0 Ratio 1.0-2.2 2 Total Bilirubin 0.4 mg/dL 0.1-1.3 2 Alkaline Phosphatase 141 U/L High 24-140 2 Alt 23 U/L 3-42 2 Ast 21 U/L 8-42 2 Lucero Egfr >60 >60 2, 5 Non Lucero Egfr >60 >60 2, 6 Anion Gap 8 mmol/L 5-15 2, 7 Lipid 12/13/2017 Cholesterol 219 mg/dL High 50-199 2 Triglycerides 329 mg/dL High 30-200 2 HDL 53 mg/dL 35-85 2, 8 Chol/ HDL Ratio 4.1 ratio 3.7-5.6 2 VLDL 66 mg/dL High 2-29 2 LDL (Calc) 100 mg/dL High 20-99 2, 9 Laboratory test finding 12/13/2017 TSH 1.66 uIU/mL 0.35-4.94 2 Vitamin D 25 Hydroxy 17 ng/mL Low 30-100 2, 10 Iron Panel 12/13/2017 Iron, Total 122 g/dL 50-170 2 Transferrin 268.0 mg/dL 203.0-362.0 2 Tibc (calc) 375 g/dL 261-478 2 % Iron Saturation 32.5 % 13.0-45.0 2 Alk Phos Isoenzymes-RL 12/13/2017 Alk Phos Total 159 U/L High 2, 11 Alk Phos Liver Calc 102 U/L High 2, 12 Alk Phos Bone Calc 57 U/L High 2, 13 Alk Phos Other Calc 0 U/L 2, 14 CBC With Auto Diff 07/05/2017 WBC 5.3 K/uL 4.1-11.0 2 RBC 4.81 M/uL 4.00-5.40 2 Hemoglobin 14.4 gm/dL 12.0-16.0 2 Hematocrit 42.6 % 36.0-47.0 2 MCV 88.6 fL 80.0-97.0 2 MCH 29.9 pg 27.0-32.0 2 MCHC 33.7 g/dL 32.0-36.0 2 RDW 13.1 % 11.5-14.5 2 PLT Count 300 K/ul 140-400 2 MPV 8.5 FL 7.1-10.7 2 Neutrophil 60.2 % 35.0-75.0 2 Lymphocyte 29.2 % 16.0-52.0 2 Monocyte 6.7 % 2.0-10.0 2 Eosinophil 2.9 % 0.0-5.0 2 Basophil 1.0 % 0.0-4.0 2 Abs Neutrophils 3.2 K/uL 2.1-8.0 2 Abs Lymphocytes 1.6 K/uL 0.8-5.5 2 Abs Monocytes 0.4 K/uL 0.1-1.0 2 Abs Eosinophils 0.2 K/uL 0.0-0.5 2 Abs Basophils 0.1 K/uL 0.0-0.3 2 Comprehensive Met Panel-FCM 07/05/2017 Sodium 142 mmol/L 135-146 2, 15 Potassium 4.4 mmol/L 3.5-5.2 2 Chloride# 104 mmol/L 97-110 2, 16 Carbon Dioxide 28 mmol/L 24-34 2 Glucose 151 mg/dL High 70-105 2 BUN 15 mg/dL 6-26 2 Creatinine 0.6 mg/dL 0.5-1.4 2 Calcium 10.2 mg/dL 8.5-10.2 2 Total Protein 6.7 g/dL 6.0-8.0 2 Albumin 4.2 g/dL 3.6-4.9 2 Globulin 2.5 g/dL 2.0-3.5 2 A/G Ratio 1.7 Ratio 1.0-2.2 2 Total Bilirubin 0.4 mg/dL 0.1-1.3 2 Alkaline Phosphatase 136 U/L 24-140 2 Alt 24 U/L 3-42 2 Ast 20 U/L 8-42 2 Lucero Egfr >60 >60 2, 17 Non Lucero Egfr >60 >60 2, 18 Anion Gap 10 mmol/L 7-16 2, 19 Laboratory test finding 07/05/2017 Esr 9 mm/hr 0-20 2 Vit D25oh 35 ng/mL 31-100 2 Alk Phos Isoenzymes-RL 07/05/2017 Alk Phos Total 153 U/L High 2, 20 Alk Phos Liver Calc 99 U/L High 2, 21 Alk Phos Bone Calc 54 U/L 2, 22 Alk Phos Other Calc 0 U/L 2, 23 Alk Phos Isoenzymes-RL 03/02/2017 Alk Phos Total 149 U/L High 24, 25 Alk Phos Liver Calc 106 U/L High 24, 26 Alk Phos Bone Calc 43 U/L 24, 27 Alk Phos Other Calc 0 U/L 24, 28 Laboratory test finding 03/02/2017 Uric Acid 4.7 mg/dL 2.6-7.6 29 Esr 14 mm/hr 0-20 29 Basic (BMP) 03/02/2017 Sodium 139 mmol/L 135-146 29, 30 Potassium 4.2 mmol/L 3.5-5.2 29 Chloride# 106 mmol/L 97-110 29, 31 Carbon Dioxide 25 mmol/L 24-34 29 Glucose 96 mg/dL 70-105 29 BUN 15 mg/dL 6-26 29 Creatinine 0.6 mg/dL 0.5-1.4 29 Calcium 10.1 mg/dL 8.5-10.2 29 Non Lucero Egfr >60 >60 29, 32 Lucero Egfr >60 >60 29, 33 Anion Gap 12 mmol/L 7-16 29, 34 Lyme Igm/Igg AB -RL 03/02/2017 Lyme Igm/Igg AB @ NEGATIVE (Neg) 35, 36 Laboratory test 03/02/2017 Anti-Streptolysn O <200 IU/mL (0-200) 35, 37 finding Alkaline Phos 12/28/2016 Alk Phos Total 151 U/L High 38 Isoenzymes Alk Phos Liver Calc 89 U/L 39 Alk Phos Bone Calc 62 U/L High 40 Alk Phos Other Calc 0 U/L 41 Laboratory test finding 12/28/2016 Vit D,25 Hydroxy 35 ng/mL 31-100 PTH,Intact W/ CA -RL 12/28/2016 PTH, Intact @ 37.7 pg/mL (12-65) Calcium @ 9.9 mg/dL (8.4-10.2) Laboratory test finding 12/04/2016 Urine Culture RL SEE NOTE 42 Laboratory test finding 12/04/2016 Lipase 124 U/L (65-230) 43 Amylase 32 U/L (25-115) 44 Lipid 12/04/2016 Cholesterol @ 219 mg/dL High (0-200) Triglyceride @ 95 mg/dL (30-200) HDL Cholesterol @ 79 mg/dL (>40) 45 Chol/HDL Ratio 2.8 RATIO 46 LDL Chol (Calc) 121 mg/dL (<130) 47 Hepatic Panel (LFT) 12/04/2016 Total Protein 6.8 g/dL (6.4-8.2) Albumin 3.6 g/dL (3.5-4.6) Globulin 3.2 g/dL (2.7-4.3) Alb/Glob Ratio 1.1 RATIO Bilirubin,Total 0.7 mg/dL (0.0-1.0) Bilirubin,Conjugated 0.2 mg/dL (0.0-0.3) Bilirubin,Unconj. 0.5 mg/dL (0.0-0.7) Alkaline Phosphatase 150 U/L High (45-117) Ast (Sgot) 18 U/L (11-39) Alt (SGPT) 32 U/L (12-78) 48 Laboratory test finding 10/08/2016 Esr 9 mm/hr 0-20 Kaya Screen With Reflex-FCMG 10/08/2016 Kaya Screen NEGATIVE dsDNA IgG NEGATIVE Laboratory test finding 10/08/2016 CCP Antibody Igg 0.90 0.00-7.00 CRP (C-Reactive) 0.21 mg/dL 0.00-0.75 Rheumatoid Factor <10.0 IU/mL 0.0-10.0 Comprehensive Metabolic (CMP) 10/08/2016 Sodium 139 mmol/L 134-142 Potassium 4.3 mmol/L 3.5-5.2 Chloride 101 mmol/L 97-109 Carbon Dioxide 33 mmol/L 24-34 Glucose 95 mg/dL 70-105 BUN 13 mg/dL 6-26 Creatinine 0.6 mg/dL 0.5-1.4 Calcium 10.5 mg/dL High 8.5-10.2 Total Protein 6.9 g/dL 6.0-8.0 Albumin 4.1 g/dL 3.6-4.9 Globulin 2.8 g/dL 2.0-3.5 A/G Ratio 1.5 Ratio 1.0-2.2 Total Bilirubin 0.5 mg/dL 0.1-1.3 Alkaline Phosphatase 124 U/L 24-140 Alt 32 U/L 3-42 Ast 23 U/L 8-42 Anion Gap 9 mmol/L 6-14 Lucero Egfr >60 >60 49 Non Lucero Egfr >60 >60 50 CBC With Auto Diff 10/08/2016 WBC 4.8 K/uL 4.1-11.0 RBC 5.09 M/uL 4.00-5.40 Hemoglobin 15.1 gm/dL 12.0-16.0 Hematocrit 45.5 % 36.0-47.0 MCV 89.5 fL 80.0-97.0 MCH 29.7 pg 27.0-32.0 MCHC 33.1 g/dL 32.0-36.0 RDW 12.6 % 11.5-14.5 PLT Count 328 K/ul 140-400 Neutrophil 62.7 % 35.0-75.0 Lymphocyte 26.7 % 16.0-52.0 Monocyte 7.1 % 2.0-10.0 Eosinophil 2.8 % 0.0-5.0 Basophil 0.7 % 0.0-4.0 Abs Neutrophils 3.0 K/uL 2.1-8.0 Abs Lymphocytes 1.3 K/uL 0.8-5.5 Abs Monocytes 0.3 K/uL 0.1-1.0 Abs Eosinophils 0.1 K/uL 0.0-0.5 Abs Basophils 0.0 K/uL 0.0-0.3 Laboratory test finding 10/08/2016 TSH 1.32 uIU/mL 0.35-4.94 Laboratory test finding 07/06/2016 Uric Acid 5.1 mg/dL 2.6-7.6 51 Esr 9 mm/hr 0-20 51 Laboratory test finding 07/23/2015 CCP Antibody Igg 4 52 CBC With Auto Diff 07/23/2015 WBC 5.2 K/uL 4.1-11.0 RBC 4.87 M/uL 4.00-5.40 Hemoglobin 14.6 gm/dL 12.0-16.0 Hematocrit 44.7 % 36.0-47.0 MCV 91.7 fL 80.0-97.0 MCH 30.1 pg 27.0-32.0 MCHC 32.8 g/dL 32.0-36.0 RDW 12.3 % 11.5-14.5 PLT Count 267 K/ul 140-400 Neutrophil 55.4 % 35.0-75.0 Lymphocyte 32.1 % 16.0-52.0 Monocyte 6.9 % 2.0-10.0 Eosinophil 4.6 % 0.0-5.0 Basophil 1.0 % 0.0-4.0 Abs Neutrophils 2.9 K/uL 2.1-8.0 Abs Lymphocytes 1.7 K/uL 0.8-5.5 Abmon 0.4 K/uL 0.1-1.0 Abs Eosinophils 0.2 K/uL 0.0-0.5 Abs Basophils 0.1 K/uL 0.0-0.3 Comprehensive Metabolic (CMP) 07/23/2015 Sodium 138 mmol/L 134-142 Potassium 4.6 mmol/L 3.5-5.2 Chloride 105 mmol/L 97-109 Carbon Dioxide 29 mmol/L 24-34 Glucose 88 mg/dL 70-105 BUN 12 mg/dL 6-26 Creatinine 0.6 mg/dL 0.5-1.4 Calcium 9.8 mg/dL 8.5-10.2 Total Protein 6.6 g/dL 6.0-8.0 Albumin 4.0 g/dL 3.6-4.9 Globulin 2.6 g/dL 2.0-3.5 A/G Ratio 1.5 Ratio 1.0-2.2 Total Bilirubin 0.4 mg/dL 0.1-1.3 Alkaline Phosphatase 114 U/L 24-140 Alt 28 U/L 3-42 Ast 21 U/L 8-42 Anion Gap 9 mmol/L 6-14 Lucero Egfr >60 >60 53 Non Lucero Egfr >60 >60 54 Laboratory test finding 07/23/2015 Hepatitis C Virus NONREACTIVE Nonreactive Antibody Vit D,25 Hydroxy 51 ng/mL 31-100 Esr 7 mm/hr 0-20 Rheumatoid Factor <10.0 IU/mL 0.0-10.0 Kaya Screen Neg Neg TSH 1.26 uIU/mL 0.35-4.94 Lipid 07/23/2015 Cholesterol 238 mg/dL High 50-199 Triglycerides 232 mg/dL High 30-200 HDL 49 mg/dL 35-85 55 Chol/ HDL Ratio 4.9 ratio 3.7-5.6 VLDL 46 mg/dL High 2-29 LDL (Calc) 143 mg/dL High 20-99 56 Laboratory test 04/27/2013 Urine Culture Microbiology res 57, 58 finding <SEE NOTE> Comprehensive 05/16/2012 Sodium 138 mmol/L 134-142 59 Metabolic (CMP) Potassium 4.8 mmol/L 3.5-5.2 59 Chloride 104 mmol/L 97-109 59 Carbon Dioxide 30 mmol/L 24-34 59 Glucose 91 mg/dL 70-105 59 BUN 14 mg/dL 6-26 59 Creatinine 0.6 mg/dL 0.5-1.4 59 Calcium 9.9 mg/dL 8.5-10.2 59 Total Protein 6.6 g/dL 6.0-8.0 59 Albumin 4.0 g/dL 3.6-4.9 59 Globulin 2.6 g/dL 2.0-3.5 59 A/G Ratio 1.5 Ratio 1.0-2.2 59 Total Bilirubin 0.6 mg/dL 0.1-1.3 59 Alkaline Phosphatase 104 U/L 24-140 59 Alt 24 U/L 3-42 59 Ast 18 U/L 8-42 59 Anion Gap 9 mmol/L 6-14 59 Lucero Egfr >60 >60 59, 60 Non Lucero Egfr >60 >60 59, 61 CBC With Auto Diff 05/16/2012 WBC 5.5 K/uL 4.1-11.0 59 RBC 4.69 M/uL 4.00-5.40 59 Hemoglobin 14.5 gm/dL 12.0-16.0 59 Hematocrit 42.8 % 36.0-47.0 59 MCV 91.2 fL 80.0-97.0 59 MCH 31.0 pg 27.0-32.0 59 MCHC 34.0 g/dL 32.0-36.0 59 RDW 13.1 % 11.5-14.5 59 PLT Count 313 K/ul 140-400 59 Neutrophil 53.8 % 35.0-75.0 59 Lymphocyte 35.1 % 16.0-52.0 59 Monocyte 6.6 % 2.0-10.0 59 Eosinophil 3.7 % 0.0-5.0 59 Basophil 0.8 % 0.0-4.0 59 Abs Neutrophils 2.9 K/uL 2.1-8.0 59 Abs Lymphocytes 1.9 K/uL 0.8-5.5 59 Abs Monocytes 0.4 K/uL 0.1-1.0 59 Abs Eosinophils 0.2 K/uL 0.0-0.5 59 Abs Basophils 0.0 K/uL 0.0-0.3 59 Laboratory test 05/16/2012 Urine Culture Microbiology res 59, 62 finding <SEE NOTE> Laboratory test 02/04/2010 [facility] Pap - [place] (SEE NOTE) 63 finding Laboratory test 10/26/2008 Histology/Surgica (SEE NOTE) 64 finding l Path- FCMG CBC With Auto Diff 07/15/2007 WBC 5.8 K/ul 4.0-10.9 RBC 4.74 M/ul 4.20-5.40 Hemoglobin 14.6 GM/dl 12.5-16.0 Hematocrit 43.0 % 36.0-47.0 MCV 90.6 FL 80.0-97.0 MCH 30.8 pg 27.0-31.0 MCHC 34.0 g/dL 32.0-36.0 RDW 11.4 % Low 11.5-14.5 Platelet Count 341 K/ul 140-440 Neutrophils 59.0 % 50-70 Lymphocytes 31.9 % 20-44 Monocytes 6.6 % 2-9 Eosinophil 1.5 % 0-4 Basophil 1.0 % 0-2 Absolute Neutrophils 3.3 K/ul 2.05-7.63 Absolute Lymphocytes 1.9 K/ul 0.8-4.8 Absolute Monocytes 0.4 K/ul 0.1-1.0 Absolute Eosinophils 0.1 K/ul 0.1-0.5 Absolute Basophils 0.1 K/ul 0.1-0.3 CMP 07/15/2007 Sodium 136 mmol/L 135-144 Potassium 3.9 mmol/L 3.6-5.2 Chloride 102 mmol/L 97-110 Carbon Dioxide 25 mmol/L 23-33 Glucose 84 mg/dL 70-105 BUN 10 mg/dL 6-22 Creatinine 0.6 mg/dL 0.5-1.3 BUN/CR 17 Ratio 12.0-20.0 Calcium 9.5 mg/dL 8.6-10.2 65 Total Protein 6.6 g/dL 5.8-7.8 Albumin 3.5 g/dL 3.5-4.8 Globulin 3.1 g/dL 2.0-3.5 A/G Ratio 1.1 Ratio 1.0-2.2 Total Bilirubin 0.7 mg/dL 0.3-1.2 Alkaline Phosphatase 93 U/L 24-140 Alt 23 U/L 4-45 Ast 20 U/L 12-40 Anion Gap 13 mmol/L 8-16 GFR Calculation > 60 mL/min 66 GFR For > 60 mL/min 67 CBC 05/14/2003 WBC 5.7 K/ul 4.1-10.9 RBC 4.63 M/ul 4.2-6.3 Hemoglobin 14.4 GM/dl 12.0-16.0 Hematocrit 42.0 % 37.0-51.0 MCV 90.9 FL 80-97 MCH 31.2 pg 26.0-32.0 MCHC 34.3 g/dL 31.0-36.0 RDW 11.6 % 11.5-14.5 Platelet Count 281 K/ul 140-440 Neutrophils 53.3 % 50-70 Lymphocytes 34.5 % 20-44 Monocytes 6.9 % 2-9 Eosinophil 4.4 % High 0-4 Basophil 0.9 % 0-2 Absolute Neutrophils 2.9 K/ul 2.05-7.63 Absolute Lymphocytes 2.0 K/ul 0.8-4.8 Absolute Monocytes 0.4 K/ul 0.1-1.0 Absolute Eosinophils 0.3 K/ul 0.1-0.5 Absolute Basophils 0.1 K/ul 0.1-0.3 Laboratory test finding 05/14/2003 Esr 3 MM/HR 0-20 TSH 2.52 uIU/ml 0.50-6.00 CMP 05/14/2003 Sodium 139 mmol/L 135-145 Potassium 3.7 mmol/L 3.4-5.3 Chloride 106 mmol/L 98-111 Carbon Dioxide 26 mmol/L 22-33 Glucose 79 mg/dL 70-105 BUN 12 mg/dL 6-26 Creatinine 0.8 mg/dL 0.5-1.5 BUN/CR 15 Ratio 12.0-20.0 Calcium 9.1 mg/dL 8.6-10.3 Total Protein 6.4 g/dL 6.2-8.3 Albumin 3.4 g/dL Low 3.5-5.0 Globulin 3.0 g/dL 2.7-4.3 A/G Ratio 1.1 Ratio 1.0-2.2 Total Bilirubin 1.0 mg/dL 0.1-1.3 Ast 22 U/L 8-42 Alt 24 U/L 3-42 Alkaline Phosphatase 89 U/L 24-108 Anion Gap 11 mmol/L 10-20 Laboratory test finding 05/14/2003 Kaya Screen NEGATIVE Lipid Panel 05/14/2003 Cholesterol 206 mg/dL High 50-199 Triglycerides 138 mg/dL 30-200 HDL 48 mg/dL 35-85 Chol/HDL Ratio 4.3 Ratio VLDL 28 mg/dL LDL (Calc) 130 mg/dL High 20-129 1 [employer] [facility]. [address] [place] [id number] CYTOLOGY REPORT Source of Specimen(s): [facility] Vaginal/ Cervical/ Endocervical Pap Smear - One Vial Date of Last Menstrual Period: None Provided Other Clinical Conditions: REFLEX TO HPV ASSAY IF RESULTS OF THIS PAP ARE ASCUS Specimen Adequacy SATISFACTORY FOR EVALUATION ABSENCE OF ENDOCERVICAL/TRANSFORMATION ZONE COMPONENT General Categorization NEGATIVE FOR INTRAEPITHELIAL LESION OR MALIGNANCY Interpretation NEGATIVE FOR INTRAEPITHELIAL LESION OR MALIGNANCY Reported: 12/16/2017 09:26 Electronically Signed Out By Vivian KEVIN rzd ICD9 Code: Z01.419 CPT code: A: [id number] Unless otherwise specified, testing performed by [facility] [address] [address] 2 This sample is drawn by:[facility]ON. 3 Updated reference range on new analyzer 4 Updated reference range on new analyzer 5 Concerning GFR Guidelines for Americans: Normal function or mild renal disease, if clinically at risk: >/=60 mL/min Moderately decreased: 30-59 Severely decreased: 15-29 Renal failure: <15 6 Concerning GFR Guidelines: Normal function or mild renal disease, if clinically at risk: >/=60 mL/min Moderately decreased: 30-59 Severely decreased: 15-29 Renal failure: <15 Glomerular Filtration Rate (GFR) is estimated based on the MDRD equation, which assumes a steady state for creatinine as recommended by the National Kidney Disease Education Program in conjunction with the National Institutes of Health and the National Kidney Foundation. Clinical conditions in which it may be necessary to measure GFR by using clearance methods include extremes of age and body size, severe malnutrition or obesity, diseases of skeletal muscle, paraplegia or quadriplegia, vegetarian diet, rapidly changing kidney function, and calculation of the dose of potentially toxic drugs that are excreted by the kidneys. 7 Updated Reference Range 8 Per NCEP ATP III Guidelines: Results lower than 40 mg/dL are suggestive of increased risk for coronary artery disease. Results > or=to 60 mg/dL are considered a negative risk factor. 9 Per NCEP ATP III Guidelines: Normal Population <130 Patients with medical conditions: CHD/DM Optimal: <100 Borderline high: 130-159 High: 160-189 Very high: >189 10 Clinical Guidelines for recommended serum 25(OH)Vitamin D Deficient at less than 20 ng/mL Insufficient at 20 to <30 ng/mL Sufficient at 30-100 ng/mL Toxicity at greater than 100 ng/mL 11 Reference range: 40 to 120 12 Reference range: 0 to 94 INTERPRETIVE INFORMATION: Alk-Phosphatase Liver Calc Bone Specific Alkaline Phosphatase (8206024) and 5'-nucleotidase ([id number]) may be useful in identifying disorders of bone and liver, respectively. 13 Reference range: 0 to 55 14 Performed by [facility], [address] [place] [id number] www.[employer], Zachary Leiva MD, Lab. Director Unless otherwise specified, testing performed by [facility] [address] [place] [id number] 15 Updated reference range on new analyzer 16 Updated reference range on new analyzer 17 Concerning GFR Guidelines for Americans: Normal function or mild renal disease, if clinically at risk: >/=60 mL/min Moderately decreased: 30-59 Severely decreased: 15-29 Renal failure: <15 18 Concerning GFR Guidelines: Normal function or mild renal disease, if clinically at risk: >/=60 mL/min Moderately decreased: 30-59 Severely decreased: 15-29 Renal failure: <15 Glomerular Filtration Rate (GFR) is estimated based on the MDRD equation, which assumes a steady state for creatinine as recommended by the National Kidney Disease Education Program in conjunction with the National Institutes of Health and the National Kidney Foundation. Clinical conditions in which it may be necessary to measure GFR by using clearance methods include extremes of age and body size, severe malnutrition or obesity, diseases of skeletal muscle, paraplegia or quadriplegia, vegetarian diet, rapidly changing kidney function, and calculation of the dose of potentially toxic drugs that are excreted by the kidneys. 19 Updated reference range on new analyzer 20 Reference range: 40 to 120 21 Reference range: 0 to 94 INTERPRETIVE INFORMATION: Alk-Phosphatase Liver Calc Bone Specific Alkaline Phosphatase (6187171) and 5'-nucleotidase (9779056) may be useful in identifying disorders of bone and liver, respectively. 22 Reference range: 0 to 55 23 Performed by [facility], [facility] [place] [facility] [place] [id number] www.[employer], Zachary Leiva MD, Lab. Director Unless otherwise specified, testing performed by [facility] [place] [address] 24 This sample is drawn by:NB Fast[facility] hours 25 Reference range: 40 to 120 26 Reference range: 0 to 94 INTERPRETIVE INFORMATION: Alk-Phosphatase Liver Calc Bone Specific Alkaline Phosphatase (7598785) and 5'-nucleotidase (7377646) may be useful in identifying disorders of bone and liver, respectively. 27 Reference range: 0 to 55 28 Performed by [facility], [facility] [place] [id number] www.[employer], Zachary Leiva MD, Lab. Director Unless otherwise specified, testing performed by [facility] [place] [address] 29 This sample is drawn by:NB Fastin hours Fastin hours Fastin hours This sample is drawn by:NB Fastin hours 30 Updated reference range on new analyzer 31 Updated reference range on new analyzer 32 Concerning GFR Guidelines: Normal function or mild renal disease, if clinically at risk: >/=60 mL/min Moderately decreased: 30-59 Severely decreased: 15-29 Renal failure: <15 Glomerular Filtration Rate (GFR) is estimated based on the MDRD equation, which assumes a steady state for creatinine as recommended by the National Kidney Disease Education Program in conjunction with the National Institutes of Health and the National Kidney Foundation. Clinical conditions in which it may be necessary to measure GFR by using clearance methods include extremes of age and body size, severe malnutrition or obesity, diseases of skeletal muscle, paraplegia or quadriplegia, vegetarian diet, rapidly changing kidney function, and calculation of the dose of potentially toxic drugs that are excreted by the kidneys. 33 Concerning GFR Guidelines for Americans: Normal function or mild renal disease, if clinically at risk: >/=60 mL/min Moderately decreased: 30-59 Severely decreased: 15-29 Renal failure: <15 34 Updated reference range on new analyzer 35 This sample is drawn by:NB Fastin hours This sample is drawn by:NB Fastin hours 36 A Negative serologic test for Lyme Disease indicates no serologic evidence of infection with B burgdorferi at the time this specimen was collected. A repeat specimen should be collected in 2 to 4 weeks if clinically indicated. Unless otherwise specified, testing performed by [facility] [place] [address] 37 Unless otherwise specified, testing performed [place] [address] 38 Reference range: 40 to 120 39 Reference range: 0 to 94 INTERPRETIVE INFORMATION: Alk-Phosphatase Liver Calc Bone Specific Alkaline Phosphatase (9108555) and 5'-nucleotidase (1060820) may be useful in identifying disorders of bone and liver, respectively. 40 Reference range: 0 to 55 41 Performed by [facility], [address] [place] [id number] www.[employer], Zachary Leiav MD, Lab. Director 42 SPECIMEN DESCRIPTION MIDSTREAM URINE,CLEAN CATCH CULTURE RESULTS NO GROWTH REPORT STATUS FINAL 12/05/2016 Unless otherwise specified, testing performed [place] [address] 43 Unless otherwise specified, testing performed [place] [address] 44 Unless otherwise specified, testing performed [place] [address] 45 PER NCEP ATP III GUIDELINES: RESULTS LOWER THAN 40 MG/DL ARE SUGGESTIVE OF INCREASED RISK FOR CORONARY ARTERY DISEASE. RESULTS > OR=TO 60 MG/DL ARE CONSIDERED A NEGATIVE RISK FACTOR. 46 INTERPRETATION OF CHOL-HDL RATIO CHD RISK FEMALE MALE VERY HIGH >8.3 >14.3 HIGH 5.6- 8.3 6.7- 14.3 AVERAGE 3.7- 5.6 4.0- 6.7 BELOW AVERAGE 2.5- 3.7 2.7- 4.0 PROTECTED <2.5 <2.7 47 PER NCEP ATP III GUIDELINES: OPTIMAL < 100 NEAR OPTIMAL 100 - 129 BORDERLINE HIGH 130 - 159 HIGH 160 - 189 VERY HIGH > 189 Unless otherwise specified, testing performed by [facility] [address] [place] [address] 48 Unless otherwise specified, testing performed by [facility] [address] [place] [address] 49 Concerning GFR Guidelines for Americans: Normal function or mild renal disease, if clinically at risk: >/=60 mL/min Moderately decreased: 30-59 Severely decreased: 15-29 Renal failure: <15 50 Concerning GFR Guidelines: Normal function or mild renal disease, if clinically at risk: >/=60 mL/min Moderately decreased: 30-59 Severely decreased: 15-29 Renal failure: <15 Glomerular Filtration Rate (GFR) is estimated based on the MDRD equation, which assumes a steady state for creatinine as recommended by the National Kidney Disease Education Program in conjunction with the National Institutes of Health and the National Kidney Foundation. Clinical conditions in which it may be necessary to measure GFR by using clearance methods include extremes of age and body size, severe malnutrition or obesity, diseases of skeletal muscle, paraplegia or quadriplegia, vegetarian diet, rapidly changing kidney function, and calculation of the dose of potentially toxic drugs that are excreted by the kidneys. 51 This sample is drawn by:WESTON. 52 Reference range: 0 to 19 Unit: Units INTERPRETIVE INFORMATION: Cyclic Citrullinated Peptide Antibody, IgG 19 Units or less ................... Negative 20-39 Units ........................ Weak Positive 40-59 Units ........................ Moderate Positive 60 Units or greater ................ Strong Positive Anti-cyclic citrullinated peptide (anti-CCP), IgG antibodies are present in about 69-83 percent of patients with rheumatoid arthritis (RA) and have specificities of 93-95 percent. These autoantibodies may be present in the preclinical phase of disease, are associated with future RA development, and may predict radiographic joint destruction. Patients with weak positive results should be monitored and testing repeated. Performed by [facility], [address] [place] [id number] www[employer], Merrill Mesa MD, Lab. Director Unless otherwise specified, testing performed by [facility] [address] [place] [id number] 53 Concerning GFR Guidelines for Americans: Normal function or mild renal disease, if clinically at risk: >/=60 mL/min Moderately decreased: 30-59 Severely decreased: 15-29 Renal failure: <15 54 Concerning GFR Guidelines: Normal function or mild renal disease, if clinically at risk: >/=60 mL/min Moderately decreased: 30-59 Severely decreased: 15-29 Renal failure: <15 Glomerular Filtration Rate (GFR) is estimated based on the MDRD equation, which assumes a steady state for creatinine as recommended by the National Kidney Disease Education Program in conjunction with the National Institutes of Health and the National Kidney Foundation. Clinical conditions in which it may be necessary to measure GFR by using clearance methods include extremes of age and body size, severe malnutrition or obesity, diseases of skeletal muscle, paraplegia or quadriplegia, vegetarian diet, rapidly changing kidney function, and calculation of the dose of potentially toxic drugs that are excreted by the kidneys. 55 Per NCEP ATP III Guidelines: Results lower than 40 mg/dL are suggestive of increased risk for coronary artery disease. Results > or=to 60 mg/dL are considered a negative risk factor. 56 Per NCEP ATP III Guidelines: Normal Population <130 Patients with medical conditions: CHD/DM Optimal: <100 Borderline high: 130-159 High: 160-189 Very high: >189 57 This sample is drawn by:MM [id number] Microbiology results S[facility] FINAL RESULT No growth 59 This sample is drawn by:NB. 60 Concerning GFR Guidelines for Americans: Normal function or mild renal disease, if clinically at risk: >/=60 mL/min Moderately decreased: 30-59 Severely decreased: 15-29 Renal failure: <15 61 Concerning GFR Guidelines: Normal function or mild renal disease, if clinically at risk: >/=60 mL/min Moderately decreased: 30-59 Severely decreased: 15-29 Renal failure: <15 Glomerular Filtration Rate (GFR) is estimated based on the MDRD equation, which assumes a steady state for creatinine as recommended by the National Kidney Disease Education Program in conjunction with the National Institutes of Health and the National Kidney Foundation. Clinical conditions in which it may be necessary to measure GFR by using clearance methods include extremes of age and body size, severe malnutrition or obesity, diseases of skeletal muscle, paraplegia or quadriplegia, vegetarian diet, rapidly changing kidney function, and calculation of the dose of potentially toxic drugs that are excreted by the kidneys. 62 Microbiology results SOURCE URINE FINAL RESULT No growth 63 [employer] [facility] plus. [facility] [place] [address] GYNECOLOGIC CYTOLOGY REPORT Accession Number: [id number] Source of Specimen(s): A: [facility] Vaginal/ Cervical/ Endocervical Pap Smear - One Vial Clinical Diagnosis and History: Date of Last Menstrual Period: None Provided Other Clinical Conditions: REFLEX TO DIGENE HPV ASSAY IF RESULTS OF THIS PAP ARE ASCUS Specimen Adequacy Satisfactory for evaluation Scant/no endocervical component General Categorization Negative for intraepithelial lesion or malignancy Interpretation NEGATIVE FOR INTRAEPITHELIAL LESION OR MALIGNANCY Reported: 02/07/2010 Electronically Signed Out By Katherine KEVIN(ASCP) [facility] [place] Unless otherwise specified, testing performed by [employer] [facility] [place] [address] [address] [place] [address] Surgical Pathology Report Specimen(s) Received A: Inner thigh Clinical Diagnosis and History Gross Description Specimen received in formalin labeled with the patient' s name only is a 1 x 0.8 x 0.4 cm wrinkled brown polypoid skin nodule. Specimen is inked, bisected and totally submitted in one cassette. (The measurements of the specimen(s) may be less than those in vivo due to tissue shrinkage during histologic fixation and processing.) jlg dme/jbs Diagnosis DESIGNATED INNER THIGH: Mildly chronically inflamed fibroepithelial polyp. Technical component processed at [facility], Histopathology, [address] [place] [address], [facility][note 3]. Diagnosis and reporting performed at [facility], [address] [place] [address]. Reported: 10/30/2008 10:03 Electronically Signed Out By Livan Veliz M.D. paw ICD9 Codes 701.9 Unless otherwise specified, testing performed by [facility] [place] [address] 65 The difference between the most recent result of 9.1 and the current result of 9.5 exceeds the absolute delta value of 0.3 as defined for this test. 66 Concerning GFR GUIDELINES: Normal Function or Mild Renal Disease, if clinically at risk: >/=60mL/min Moderately decreased: 30-59 Severely decreased: 15-29 Renal Failure: <15 Glomerular Filtration Rate (GFR) is estimated based on the MDRD equation, which assumes a steady state for creatinine as recommended by the National Kidney Disease Education Program in conjunction with the National Institutes of Health and the National Kidney Foundation. Clinical conditions in which it may be necessary to measure GFR by using clearance methods include extremes of age and body size, severe malnutrition or obesity, diseases of skeletal muscle, paraplegia or quadriplegia, vegetarian diet, rapidly changing kidney function, and calculation of the dose of potentially toxic drugs that are excreted by the kidneys. 67 Concerning GFR GUIDELINES: Normal Function or Mild Renal Disease, if clinically at risk: >/=60mL/min Moderately decreased: 30-59 Severely decreased: 15-29 Renal Failure: <15 Procedures Date CPT Code Description Status 12/13/2017 94026 Electrocardiogram Complete Completed 08/06/2017 23159 Inject/Drain Joint/Bursa Major W/Out Ultrasound Completed Guidance 08/06/2017 63785 Inject/Drain Joint/Bursa Major W/Out Ultrasound Completed Guidance 05/11/2017 50659 Electrocardiogram Complete Completed 02/01/2017 Mammogram Completed 07/29/2015 53147 Electrocardiogram Complete Completed 02/19/2015 06132 Inject/Drain Joint/Bursa Major W/Out Ultrasound Completed Guidance 02/19/2015 89275 Inject/Drain Joint/Bursa Major W/Out Ultrasound Completed Guidance 02/04/2015 40134 Electrocardiogram Complete Completed 11/27/2011 89006 Electrocardiogram Complete Completed 05/08/2011 Mammogram Completed 07/15/2010 03547 Electrocardiogram Complete Completed 11/01/2009 99322 Admin Of Inj (Therapeutic Phrophylactic Or Diagnostic Completed Subq Inj 11/01/2009 15521 Electrocardiogram Complete Completed 05/23/2009 Mammogram Completed 10/26/2008 45757 Excise Benign Lesion .6-1CM Completed Scalp/Neck/Hands/Feet/Genitalia 10/26/2008 71255 Remove Skin Tags Up To 15 Completed 05/14/2008 17672 Destruction Lesion/Any Method Premalignant Lesions Completed 05/14/2008 21777 Remove Skin Tags Up To 15 Completed 12/02/2007 56705 Electrocardiogram Complete Completed 12/29/2002 18342 Remove Skin Tags Up To 15 Completed 05/17/2001 01485 Electrocardiogram Complete Completed Encounters Type Date Location Provider CPT E/M Dx Office Visit 12/13/2017 3:15[place] [address] Z01.419 Z01.818 I10 E55.9 R79.9 R53.82 Z12.11 Z12.31 M06.00 M05.769 R60.0 M54.2 K08.89 Office Visit 09/14/2017 10:15[place] [address] K08.89 I10 Z12.11 Office Visit 08/06/2017 10:30[place] [address] I10 M06.00 M17.0 N95.1 E66.9 Z12.11 R73.09 M54.2 Office Visit 07/05/2017 10:45[place] [address] M06.00 I10 M17.0 N95.1 E66.9 Z12.11 R79.9 M54.2 E55.9 Office Visit 05/11/2017 1:20[place] [address] Z01.818 M06.00 M79.604 M25.511 E66.9 Office Visit 04/22/2017 3:00p Melissa Carroll, RN [place] [employer] 65808 M79.604 M25.511 R10.11 M54.5 R10.13 Office Visit 04/02/2017 9:45[place] [address] I10 M17.0 M54.5 N95.1 Z12.11 M19.90 N95.2 L60.8 Z68.32 Office Visit 03/02/2017 1:00[place] [address] M17.0 R79.9 R93.0 Z12.11 N95.1 M54.5 M25.50 Z68.32 Office Visit 12/04/2016 9:00a Melissa Carroll RN [facility] 80211 R10.11 E78.2 M54.5 R31.9 Office Visit 10/08/2016 9:40a Melissa Carroll RN [facility] 32483 M17.0 I10 Z68.32 Office Visit 07/06/2016 9:30[place] [address] M17.0 Z68.32 Z12.11 Office Visit 10/28/2015 2:20[place] [address] M23.307 M25.562 M25.462 Office Visit 07/29/2015 12:00[place] [address] I10 R07.2 M17.0 M48.02 Z68.32 K29.00 Office Visit 07/23/2015 9:00[place] [address] I10 M79.641 M17.0 M79.1 M54.5 M48.02 R53.82 J01.00 Z68.32 Z23 Office Visit 02/04/2015 3:15[place] [address] V72.31 401.1 V76.10 723.1 300.01 627.2 626.2 719.46 719.44 Office Visit 04/12/2014 2:40p Melissa Carroll RN [facility] 24853 723.1 723.1 401.1 401.1 783.1 783.1 Office Visit 04/27/2013 8:00a Melissa Carroll RN [facility] 93100 788.41 Office Visit 03/17/2013 8:40a Melissa Carroll RN [facility] 27422 401.1 724.2 278.02 724.1 V76.10 Office Visit 05/16/2012 9:00[place] [address] 724.2 599.70 592.0 Office Visit 01/11/2012 5:15[place] [address] 401.1 682.9 780.4 Office Visit 11/27/2011 2:15p Ngozi Concepcion MD 23996DD V72.81 401.1 466.0 Office Visit 04/30/2011 8:00a Melissa Carroll RN [facility] 50468 724.2 789.04 789.01 Office Visit 04/20/2011 11:20a Melissa Carroll RN [facility] 33791 789.04 724.2 Office Visit 10/17/2010 9:15[place] [address] 461.0 278.02 Office Visit 07/15/2010 2:00[place] [address] V72.81 272.0 401.1 278.02 Office Visit 02/04/2010 2:00[place] [address] V72.83 V72.81 401.1 278.02 477.0 V76.51 626.2 V06.1 Office Visit 11/01/2009 10:45[place] [address] 724.1 786.50 Office Visit 10/14/2009 5:45[place] [address] 461.0 278.02 706.2 Office Visit 06/24/2009 3:00[place] [address] 466.0 Office Visit 03/15/2009 1:45[place] [address] 401.1 465.9 723.1 Office Visit 12/07/2008 3:45[place] [address] 383.00 Office Visit 11/01/2008 11:30a Melissa Carroll RN MS [facility] 31358 465.9 Office Visit 10/26/2008 1:00[place] [address] 401.1 278.02 723.1 715.16 701.9 Office Visit 08/27/2008 6:00[place] [address] 610.0 Office Visit 07/30/2008 7:00[place] [address] 682.8 278.02 401.1 Office Visit 05/14/2008 2:45[place] [address] 401.1 272.0 701.9 793.80 Office Visit 02/21/2008 2:45[place] [address] 401.1 272.0 276.1 278.02 Office Visit 12/02/2007 10:45[place] [address] V72.31 272.0 786.51 308.9 466.0 796.2 Office Visit 08/12/2007 11:30[place] [address] 796.2 724.2 340 723.1 Office Visit 08/12/2007 11:45[place] [address] 796.2 724.2 340 723.1 Office Visit 07/15/2007 11:45[place] [address] 723.1 723.1 724.2 724.2 368.9 368.9 724.1 724.1 Office Visit 01/10/2007 1:00p Melissa Carroll RN MS [facility] 87963 724.2 783.1 Office Visit 09/29/2006 1:00p Melissa Carroll RN [facility] 31391 465.9 Office Visit 05/18/2006 2:45p Melissa Carroll RN [facility] 39284 726.73 Office Visit 02/02/2006 3:00p Melissa Carroll RN [facility] 09912 278.00 V15.09 719.46 Office Visit 12/01/2005 1:20p Melissa Carroll RN [facility] 60429 959.11 278.00 717.3 Office Visit 10/06/2005 2:30[place] [address] 717.3 723.1 Office Visit 09/15/2005 1:30[place] [address] 466.0 Office Visit 11/04/2004 3:15p Melissa Carroll RN [facility] 25006 465.9 724.2 Office Visit 09/25/2003 1:30p Melissa Carroll RN [facility] 06468 461.0 Office Visit 05/29/2003 2:50[place] [address] 784.0 414.00 Office Visit 04/20/2003 2:20[place] [address] 784.0 369.9 Office Visit 02/02/2003 11:00a Reji Marquez, N.P. 90238 465.9 Office Visit 06/16/2002 1:40[place] [address] 599.0 783.1 691.8 780.79 Office Visit 08/16/2001 3:50[place] [address] Office Visit 07/21/2001 1:45[place] [address] Office Visit 05/17/2001 11:20[place] [address] Office Visit 04/27/2001 2:10p Ga Grant M.D. 27096 Office Visit 04/13/2001 1:20p Ga Grant M.D. 67746 Plan of Care 03/10/2018 - Davin Linares, PAH00.012 Hordeolum externum RIGHT lower eyelidNew Medication:Tobramycin-Dexamethasone 0.3-0.1 %Comments:warm compresses, pull eye lashes, and Rx AbxM54.2 CervicalgiaNew Medication:Baclofen 10 mgTramadol HCL 50 mgComments:will d/c Soma and change to baclofen.D48.5 Neoplasm of uncertain behavior of skinComments:schedule removal of lesion x2D64.9 Anemia, unspecifiedComments:will do pre-op labs. ??need pre-op exam.Z68.33 Body mass index (BMI) 33.0-33.9, evticL29.9 Vitamin D deficiency, unspecified
[2018-03-15] MEDS ORDERED: Diazepam TAB(*) 5 MG PO ONE (13:53)
[2018-03-15] MEDS ORDERED: Ketorolac INJ* 60 MG/2 ML VIAL IM ONE (13:53)
[2018-03-15] MEDS ORDERED: Dexamethasone IV* 4 MG/ML 1 ML (4 MG) IM ONE (13:53)
[2018-03-15] MEDS ORDERED: Lidocaine PATCH 5%* 1 PATCH TRANSDERM ONE (13:54)
[2018-03-15 14:05] LABS: Hematocrit 42 % (35-47); Hemoglobin 14.7 g/dl (12.0-16.0); Mean Corpuscular HGB Conc 35 g/dl (31-36); Mean Corpuscular Hemoglobin 30 pg (27-31); Mean Corpuscular Volume 88 fL (80-97); Mean Platelet Volume 7.2 um3 (7.4-10.4); Platelet Count 286 10^3/ul (150-450); Red Blood Count 4.83 10^6/ul (4.00-5.40); Red Cell Distribution Width 13 % (10.5-15); White Blood Count 5.7 10^3/ul (3.5-10.8)
--- NOTE | 2018-03-15 14:30 | RAD ---
INDICATION: Right-sided chest pain. COMPARISON: Comparison is made with a prior study from April 19, 2017. TECHNIQUE: Dual-energy PA and lateral views of the chest were obtained. FINDINGS: The heart is within normal limits in size. Mediastinal and hilar contours appear within normal limits. The lungs are clear. No pleural effusion or pneumothorax is seen. IMPRESSION: NO EVIDENCE FOR ACTIVE CARDIOPULMONARY DISEASE.
[2018-03-15 14:51] LABS: EGFR Non-African American 98.5 (>60)
[2018-03-15 15:55] VITALS: BP 149/90
[2018-03-15] MEDS ORDERED: Lidocaine Patch REMOVE* 1 NOTE MISC SCH (21:00)
--- NOTE | 2018-03-29 07:31 | ED ---
Shaheen Omer Simon, scribed for Merrill Quiles MD on 03/15/18 at 1231 . Neck Pain - HPI Summary HPI Summary: This patient is a 58 year old F presenting to [facility] with a chief complaint of neck and back pain for the past 6 months, and it is especially worse in the past 3 weeks with a 7/10 severity. Endorses position changes aggravate sx, endorses radiating pain on both sides of back, neck, worsened with R arm movement and neck movement. Heat, ice, and muscle relaxers havent improved sx. She endorses diffuse headache, and shooting pains from neck. She notes pain that catches on right/chest shoulder area that is worse with movement, which has also persisted for 6 months. Pt reports awakening 10-15 times a night due to shooting neck pain. She endorses paresthesia and numbness in both hands, but never simultaneously, and denies recent trauma. She endorses that her stomach has been off lately. 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 Pt endorses vision messed up the past couple days, likely due to tramadol. Pt denies hx PASCUAL.Pt takes meloxicam as of 3 months ago but hasnt taken it in 3 days due to running out. Pt took ibuprofen 600mg this am. Pt prescribed tramadol 3 days ago for her neck. Pt denies recent steroid use. - History of Current Complaint Chief Complaint: EDHeadache Stated Complaint: NECK PAIN Time Seen by Provider: 03/15/18 11:57 Hx Obtained From: Patient Hx Last Menstrual Period: spotting now Onset/Duration Of Injury/Symptoms: Months Mechanism Of Injury: No Known Trauma Timing: Constant Onset/Duration: Still Present Severity Initially: Moderate Severity Currently: Moderate Pain Intensity: 7 Pain Scale Used: 0-10 Numeric Location: Discrete At: - neck, right side upper chest., Radiates To: - head, back Character: Sharp, Aching Aggravating Factors: Position, Movement Alleviating Factors: Nothing Associated Signs & Symptoms: Positive: Headache - Allergies/Home Medications Allergies/Adverse Reactions: Allergies Allergy/AdvReac Type Severity Reaction Status Date / Time acetaminophen [From Percocet] Allergy Vomiting Verified 03/15/18 11:33 oxycodone [From Percocet] Allergy Vomiting Verified 03/15/18 11:33 Home Medications: Home Medications Cholecalciferol TAB* [Vitamin D TAB*] 2,000 units PO DAILY 03/15/18 [History Confirmed 03/15/18] Ibuprofen TAB* [Motrin TAB* 600 MG] 600 mg PO Q6H PRN 03/15/18 [History Confirmed 03/15/18] Meloxicam(NF) [Mobic(NF)] 15 mg PO DAILY 03/15/18 [History Confirmed 03/15/18] traMADol TAB* [Ultram*] 50 mg PO BID PRN 03/15/18 [History Confirmed 03/15/18] PMH/Surg Hx/FS Hx/Imm Hx Endocrine/Hematology History: Denies: Hx Diabetes, Hx Thyroid Disease Cardiovascular History: Reports: Hx Angina, Hx Hypertension - better now, not on meds 02/2014, Other Cardiovascular Problems/Disorders - Cardiac cathX2 with blockage Denies: Hx Pacemaker/ICD Respiratory History: Reports: Hx Asthma, Hx Chronic Bronchitis, Hx Seasonal Allergies Denies: Hx Chronic Obstructive Pulmonary Disease (COPD) GI History: Denies: Hx Ulcer Musculoskeletal History: Reports: Hx Rheumatoid Arthritis, Hx Back Problems Sensory History: Reports: Hx Contacts or Glasses Denies: Hx Legally Blind, Hx Hearing Aid Opthamlomology History: Reports: Hx Contacts or Glasses EENT History: Denies: Hx Deafness Neurological History: Reports: Hx Headaches Psychiatric History: Denies: Hx Panic Disorder - Cancer History Hx Chemotherapy: No Hx Radiation Therapy: No - Surgical History Surgery Procedure, Year, and Place: 2 biopsy blt breast tissue-benign, BLT foot bunions, Cardiac cath 8 years ago Infectious Disease History: No Infectious Disease History: Denies: Hx Clostridium Difficile, Hx Hepatitis, Hx Human Immunodeficiency Virus (HIV), Hx of Known/Suspected MRSA, Hx Shingles, Hx Tuberculosis, Traveled Outside the [place] in Last 30 Days - Family History Known Family History: Positive: Other - NEGATIVE: blood clots - Social History Occupation: Employed Full-time - Own's a bar in [place] Alcohol Use: Occasionally Alcohol Amount: 2 ea 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) Hx Substance Use: No Substance Use Type: Reports: None Hx Tobacco Use: No Smoking Status (MU): Never Smoked Tobacco Have You Smoked in the Last Year: No Review of Systems Negative: Fever, Chills Positive: Blurred Vision. Negative: Erythema Negative: Sore Throat Negative: Chest Pain Negative: Shortness Of Breath, Cough Positive: Nausea. Negative: Abdominal Pain, Vomiting Negative: dysuria, hematuria Positive: Arthralgia, Myalgia, Decreased ROM. Negative: Edema Negative: Rash Neurological: Other - NEGATIVE: dizziness Positive: Headache, Paresthesia - both hands, Numbness - both hands All Other Systems Reviewed And Are Negative: Yes Physical Exam - Summary Physical Exam Summary: Constitutional: Well-developed, Well-nourished, Alert. (-) Distressed Skin: Warm, Dry HENT: Normocephalic; Atraumatic Eyes: Conjunctiva normal Neck: Musculoskeletal ROM normal neck. (-) JVD, (-) Stridor, (-) Tracheal deviation Cardio: Rhythm regular, rate normal, Heart sounds normal; Intact distal pulses; The pedal pulses are 2+ and symmetric. Radial pulses are 2+ and symmetric. (-) Murmur Pulmonary/Chest wall: Effort normal. (-) Respiratory distress, (-) Wheezes, (-) Rales Abd: Soft, (-), epigastric tenderness, (-) Distension, (-) Guarding, (-) Rebound Musculoskeletal: (-) Edema, pain reproducible with right shoulder flexion and full ROM of neck. (-) point tenderness Lymph: (-) Cervical adenopathy Alert, Oriented x3, Strength normal, Cranial nerves II-XII are grossly intact. ( -) Dysmetria, (-) Nystagmus, (-) Ataxia by finger to nose testing, (-) Sensory deficit. Normal lower extremity strength Psych: Mood and affect Normal Triage Information Reviewed: Yes Vital Signs On Initial Exam: Initial Vitals Temp Pulse Resp BP Pulse Ox 98.2 F 86 16 160/90 95 03/15/18 11:32 03/15/18 11:32 03/15/18 11:32 03/15/18 11:32 03/15/18 11:32 Vital Signs Reviewed: Yes Diagnostics - Vital Signs Vital Signs Temp Pulse Resp BP Pulse Ox 03/15/18 12:15 69 135/85 96 03/15/18 12:00 75 94 03/15/18 11:45 82 163/94 95 03/15/18 11:32 98.2 F 86 16 160/90 95 - Laboratory Result Diagrams: 03/15/18 13:56 03/15/18 13:56 Lab Statement: Any lab studies that have been ordered have been reviewed, and results considered in the medical decision making process. - Radiology CXR Xray Interpretation: No Acute Changes Radiology Interpretation Completed By: Radiologist - no evidence for active cardiopulmonary disease. Dr. Quiles has reviewed this report. - EKG 1355 Cardiac Rate: Bradycardia - 59 BPM EKG Rhythm: Sinus Bradycardia ST Segment: Normal Ectopy: None EKG Interpretation: no STEMI Re-Evaluation - Re-Evaluation First Eval Re-Evaluation Time: 15:30 Change: Improved Comment: Discussed discharge and follow up plans with patient. Reassessed pain level. Neck Course/Dx - Course Course Of Treatment: This patient is a 58 year old F with a chief complaint of neck and back pain for the past 6 months, and it is especially worse in the past 3 weeks with a 7/10 severity. Endorses position changes aggravate sx, endorses radiating pain on both sides of back, neck, worsened with R arm and neck movement. Heat, ice, and muscle relaxers havent improved sx. She endorses diffuse headache, and shooting pains from neck. She notes pain that catches on right/chest shoulder area that is worse with movement, which has also persisted for 6 months. She endorses paresthesia and numbness in both hands, but never simultaneously, and denies recent trauma. EKG reveals SB. CXR (-). All sx reproducible with movement. Likely radiculopathy, DDD. Sx subacute. - Diagnoses Provider Diagnoses: Cervical radiculopathy Discharge - Sign-Out/Discharge Documenting (check all that apply): Discharge/Admit/Transfer - discharge - Discharge Plan Condition: Stable Disposition: HOME Referrals: Ngozi Buck MD [Primary Care Provider] - Care [facility] [Outside] Additional Instructions: RETURN TO EMERGENCY DEPARTMENT IF SYMPTOMS CHANGE OR WORSEN. - Billing Disposition and Condition Condition: STABLE Disposition: Home The documentation as recorded by the Shaheen walker Simon accurately reflects the service I personally performed and the decisions made by me, Merrill Quiles MD.
== END 2018-03-15 15:54 | disposition home or self-care (01) ==
LOC: ED 11:30
DX: M54.12 Radiculopathy, cervical region (principal); R07.89 Other chest pain; H53.8 Other visual disturbances; R00.1 Bradycardia, unspecified; R51 Headache; I20.9 Angina pectoris, unspecified; I10 Essential (primary) hypertension; J45.909 Unspecified asthma, uncomplicated; M06.9 Rheumatoid arthritis, unspecified; Z88.6 Allergy status to analgesic agent; Z88.5 Allergy status to narcotic agent
CPT/HCPCS: 36415; 71046; 80053; 84484; 85027; 93005; 96372; 99282; A9270-GY; J1100; J1885

== ENCOUNTER 2019-07-01 09:21 | Emergency (ER) | payer MEDICAID ==
[2019-07-01 09:30] VITALS: BP 137/79
--- NOTE | 2019-07-01 09:47 | UC ---
Dental HPI - HPI Summary HPI Summary: Patient is a 59-year-old female here with dental pain. Patient had her left molar filled last September. Since then, patient's had 2 episodes of infection. For the past 3 days, patient's had pain and swelling in her left lower jaw. Patient's had no fever, chills, nausea, vomiting, difficulty swallowing, change in speech. Patient has an appointment with her dentist on 08/02/19 to get her tooth fixed. Medications reviewed - History of Current Complaint Chief Complaint: UCDentalProblem Stated Complaint: DENTAL PAIN Time Seen by Provider: 07/01/19 09:34 Hx Obtained From: Patient Hx Last Menstrual Period: spotting now Pain Intensity: 8 - Allergies/Home Medications Allergies/Adverse Reactions: Allergies Allergy/AdvReac Type Severity Reaction Status Date / Time acetaminophen [From Percocet] Allergy Vomiting Verified 07/01/19 09:30 oxycodone [From Percocet] Allergy Vomiting Verified 07/01/19 09:30 PMH/Surg Hx/FS Hx/Imm Hx Previously Healthy: Yes - Surgical History Surgical History: Yes Surgery Procedure, Year, and Place: 2 biopsy blt breast tissue-benign, BLT foot bunions, Cardiac cath 8 years ago - Family History Known Family History: Positive: Other - NEGATIVE: blood clots, Non-Contributory - Social History Alcohol Use: Occasionally Alcohol Amount: 2 ea 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) Substance Use Type: None Smoking Status (MU): Never Smoked Tobacco Have You Smoked in the Last Year: No - Immunization History Most Recent Influenza Vaccination: never Most Recent Tetanus Shot: unk Most Recent Pneumonia Vaccination: never Review of Systems All Other Systems Reviewed And Are Negative: Yes Constitutional: Negative: Fever, Chills Eyes: Negative: Blurred Vision, Eye Redness ENT: Negative: Sore Throat, Ear Ache, Nasal Discharge Respiratory: Negative: Shortness Of Breath, Cough Cardiovascular: Negative: Chest Pain Gastrointestinal: Negative: Abdominal Pain, Vomiting Physical Exam - Summary Physical Exam Summary: Vital Signs Reviewed: Yes A+Ox3, no distress Eyes: Conjunctiva Clear, PERRL. EOM intact and full ENT: Tenderness in the lower left molar. Small area bugle swelling. No fluctuance or induration. No sublingual swelling or induration. No submandibular swelling or induration Neck: Positive: Supple Respiratory: Positive: No respiratory distress, No accessory muscle use + CTA throughout no w/r Cardiovascular: RRR nl s1, s2 no m/r CBT <2 sec abd soft + BS nt/nd no guarding, no distension Musculoskeletal Exam: PATINO x 4 without difficulty Strength Intact, ROM Intact Neurological: Positive: Alert, + sensation throughout Psychological: Positive: Normal Response To Family Skin: no rash, no ecchymosis Vital Signs: Initial Vital Signs Temp 97.8 F 07/01/19 09:27 Pulse 98 07/01/19 09:27 Resp 17 07/01/19 09:27 BP 137/79 07/01/19 09:27 Pulse Ox 100 07/01/19 09:27 Dental Complaint Course/Dx - Course Course Of Treatment: Patient is here with a dental infection at the site of a prior cavity. Patient has no drainable abscess. Patient has no evidence of deep space neck infection. Patient was started on clindamycin. - Differential Dx/Diagnosis Provider Diagnosis: Dental infection Discharge ED - Sign-Out/Discharge Documenting (check all that apply): Patient Departure All imaging exams completed and their final reports reviewed: No Studies - Discharge Plan Condition: Stable Disposition: HOME Prescriptions: Clindamycin Cap(NF) [Clindamycin Cap 300 mg Cap(NF)] 300 mg PO TID 7 Days #21 cap Patient Education Materials: Toothache (ED) Referrals: Ngozi Buck MD [Primary Care Provider] - Additional Instructions: Please follow-up with your dentist as you'll continue to have recurrent infections until your tooth is fixed Please return if you have severe swelling in your jaw, difficulty breathing, high fever Please fill your medication and take it as prescribed - Billing Disposition and Condition Condition: STABLE Disposition: Home
--- NOTE | 2019-07-04 10:52 | UC ---
- Progress Note Progress Note: not improved flagyl 500 tid (#21) eRxed continue clinda to ER for worsening symptoms fever worsening swelling Course/Dx - Diagnoses Provider Diagnoses: Dental infection Discharge ED - Sign-Out/Discharge Documenting (check all that apply): Post-Discharge Follow Up All imaging exams completed and their final reports reviewed: No Studies - Discharge Plan Condition: Stable Disposition: HOME Prescriptions: Clindamycin Cap(NF) [Clindamycin Cap 300 mg Cap(NF)] 300 mg PO TID 7 Days #21 cap metroNIDAZOLE [Flagyl 500 MG TAB] 500 mg PO TID #21 tab Patient Education Materials: Toothache (ED) Referrals: Ngozi Buck MD [Primary Care Provider] - Additional Instructions: Please follow-up with your dentist as you'll continue to have recurrent infections until your tooth is fixed Please return if you have severe swelling in your jaw, difficulty breathing, high fever Please fill your medication and take it as prescribed - Billing Disposition and Condition Condition: STABLE Disposition: Home
== END 2019-07-01 09:46 | disposition home or self-care (01) ==
LOC: UCEAST 09:21
DX: K04.7 Periapical abscess without sinus (principal); Z88.6 Allergy status to analgesic agent; Z88.5 Allergy status to narcotic agent
CPT/HCPCS: 99212; G0463

== ENCOUNTER 2019-09-19 06:31 | Inpatient (IN) | payer MEDICAID, OTHER ==
--- NOTE | 2019-09-08 18:27 | HP ---
HISTORY AND PHYSICAL: DATE OF ADMISSION/SURGERY: 09/19/19 DATE OF OFFICE VISIT: 09/06/19 SURGEON: Ruby Amador MD * (DICTATED BY TIM SPAULDING) PROCEDURE: Left total knee arthroplasty. CHIEF COMPLAINT: Left knee pain. HISTORY OF PRESENT ILLNESS: Ms. Butterfield is a 59-year-old female with continued complaints of left knee pain. She has failed conservative treatment and elected to proceed with a left total knee arthroplasty. PAST MEDICAL HISTORY: Denies. PAST SURGICAL HISTORY: Bilateral bunionectomies. CURRENT MEDIATIONS: Ibuprofen as needed. ALLERGIES: PERCOCET causing nausea and vomiting. FAMILY HISTORY: Coronary artery disease and diabetes. SOCIAL HISTORY: She is a 59-year-old female. She lives alone. She does not smoke or use drugs. Uses occasional alcohol. REVIEW OF SYSTEMS: A complete 14-point review of systems was reviewed with the patient and is all negative and noncontributory. PHYSICAL EXAMINATION GENERAL: She is well developed, well nourished, in no acute distress. VITAL SIGNS: She stands 5 feet and 6 inches tall, weighs 214 pounds. Her blood pressure is 128/86, heart rate is 78. HEENT: Normocephalic, atraumatic. NECK: Supple. No palpable lymph nodes. PULMONARY: The lungs are clear to auscultation bilaterally. CARDIO: Regular rate and rhythm. Strong S1, S2. ABDOMEN: Soft, nontender, nondistended. NEUROLOGICAL: She is alert and oriented x3. MUSCULOSKELETAL: Left lower extremity: Skin is intact. There are no open wounds or abrasions. There is some moderate effusion of the left knee joint. Tenderness along the medial and lateral joint line. Range of motion is 10 to 120 degrees of flexion with patellofemoral crepitus. She is able to dorsiflex and plantar flex. She has a 2+ dorsalis pedis pulse and intact sensation. ASSESSMENT AND PLAN: Ms. Butterfield is a 59-year-old female with severe end- stage osteoarthritis of the left knee. She has failed conservative treatment and elected to proceed with a left total knee arthroplasty. The surgery is scheduled for 09/19/[address] Amador discussed the risks and benefits of the surgery at today's visit and all of her questions were answered. She will follow with Dr. Amador 2 weeks after the surgery. TIM SPAULDING [id number]/[facility] #: [id number] [facility] CENTERDonovan
[~2019-09-19 06:31] MED LIST: Buffered Lidocaine 1% SYRIN* 1 ML/SYRINGE INTRADERM ONE; Famotidine IV* 10 MG/ML 2 ML (20 mg) IV ONE; Lactated Ringers 1000 ML Bag* 1,000 ML IV SCH; Tranexamic Acid 1,000 MG in NS 0.9% 50 ML* (outpatient use) IV SCH
--- OUTSIDE RECORDS SUMMARY | 2019-09-19 06:34 | XMS REPORT | Continuity of Care Document ---
:1960 External Reference #:[id number] Author Name Sly Borges M.D. Address [address] [place] [address] Care Team Providers Name Role Phone Ngozi Saavedra M.D. - Family Care Team Information Manager [employer] Medicine Wong Hope M.D. - Care Team Information Manager [employer] [phone] Rheumatology Problems Active Problems Provider Date Rheumatoid arthritis Onset: Social History Type Date Description Comments Sex Unknown ETOH Use Occasionally consumes "a few times a week" alcohol Tobacco Use Start: Unknown Patient has never smoked Recreational Drug Use Denies Drug Use Smoking Status Reviewed: 09/07/19 Patient has never smoked Allergies, Adverse Reactions, Alerts Description No Known Drug Allergies Medications Active Medications SIG Qnty Indications Ordering Provider Date Tramadol HCL Unknown 50mg Tablets Ibuprofen 200 800 mg am / Unknown 200mg Tablets 600-800 mg pm Immunizations Description No Information Available Vital Signs Description No Information Available Results Description No Information Available Procedures Description No Information Available Medical Devices Description No Information Available Encounters Description No Information Available Assessments Date Code Description Provider 09/07/2019 H25.13 Age-related nuclear cataract, bilateral Sly Borges M.D. 09/07/2019 D23.112 Other benign neoplasm of skin of right Sly Borges M.D. lower eyelid, including canthus Plan of Treatment 09/07/2019 - Sly Borges M.D.H25.13 Age-related nuclear cataract, bilateralComments:Smoking can increase the risk of developing or worsening any eye related disease, as well as affect your overall health. If you are a smoker , we strongly recommend that you quit.If you are not a smoker, we strongly recommend that you do not start. You have been diagnosed with cataracts. If you are happy with your vision as it is now, then we will see you at your next scheduled appointment. If you feel like your vision is getting worse before your scheduled appointment, please call Mónica at [phone].Follow up:1 Year Follow Up DFE You can expect to have your eyes dilated at your next visit. If Dr. Borges orders any additional testing, it may require extra time. We recommend that you bring sunglasses, as dilation drops often make you light sensitive until they wear off. We always recommend you bring someone to drive you home if you are uncomfortable driving with your eyes dilated. If you have any questions before your next visit, feel free to call our office at [phone].D23.112 Other benign neoplasm of skin of right lower eyelid, including canthusComments:Please monitor the bump on your right lower eyelid for any changes. If it changes in size, shape, orcolor, please contact the office to have it re-evaluated. If you decide that you would like this removed before your next scheduled appointment, please call Viridiana Sales at [phone]. Functional Status Description No Information Available Mental Status Description No Information Available Referrals Description No Information Available
--- OUTSIDE RECORDS SUMMARY | 2019-09-19 06:34 | XMS REPORT | Continuity of Care Document ---
:1960 External Reference #:[id number] Author Name Ruby Amador M.D. (transmitted by agent of provider Linda Smyth) Address [address] [facility] [place] [address] Care Team Providers Name Role Phone Ngozi Saavedra MD - Internal Care Team Information Interface Designer [phone] Medicine Problems Active Problems Provider Date Localized, primary osteoarthritis Ruby Amador M.D. Onset: 07/24/2019 Social History Type Date Description Comments Sex Unknown ETOH Use Occasionally consumes alcohol Tobacco Use Start: Unknown Patient has never smoked Smoking Status Reviewed: 07/24/19 Patient has never smoked Exercise Type/Frequency Exercises sporadically Allergies, Adverse Reactions, Alerts Active Allergies Reaction Severity Comments Date Percocet vomit 07/09/2016 Medications Active Medications SIG Qnty Indications Ordering Provider Date Long Arm Grabber 1units [facility] 05/18/2017 Jose Joyce MD [place] Seat Lift 1units [facility] 05/18/2017 oJse Joyce MD Walker With 5 Inch 1units [facility] 05/17/2017 Gabriella Joyce MD [facility] Shower Chair 1units [facility] 05/17/2017 Jose Joyce MD Cane 1units [facility] 05/17/2017 Jose Joyce MD Ibuprofen 1 by mouth Unknown 800mg Tablets three times a day Medications Administered in Office Medication SIG Qnty Indications Ordering Provider Date Depomedrol 40MG Rubin Joyce MD 01/04/2017 Injection Depomedrol 40MG Rubin Joyce MD 01/04/2017 Injection Synvisc Or Synvisc-One Rubin Joyce MD 11/23/2016 Injection 1 MG Injection Synvisc Or Synvisc-One Rubin Joyce MD 11/23/2016 Injection 1 MG Injection Depomedrol 40MG Rubin Joyce MD 10/15/2016 Injection Depomedrol 40MG Rubin Joyce MD 10/15/2016 Injection Depomedrol 40MG Rubin Joyce MD 07/09/2016 Injection Depomedrol 40MG Rubin Joyce MD 07/09/2016 Injection Depomedrol 40MG [facility] [place] 05/01/2010 Injection Immunizations Description No Information Available Vital Signs Date Vital Result Comment 07/24/2019 1:48pm Height 65 inches 5'5" Weight 218.00 lb Heart Rate 84 /min BP Systolic 158 mmHg BP Diastolic 98 mmHg Body Temperature 97.7 F Pain Level 8 BMI (Body Mass Index) 36.3 kg/m2 05/11/2017 8:09am Height 66 inches 5'6" Weight 195.00 lb Heart Rate 71 /min BP Systolic 148 mmHg BP Diastolic 85 mmHg Respiratory Rate 15 /min Pain Level 7 BMI (Body Mass Index) 31.5 kg/m2 Results Description No Information Available Procedures Description No Information Available Medical Devices Description No Information Available Encounters Description No Information Available Assessments Date Code Description Provider 07/24/2019 M17.0 Bilateral primary osteoarthritis of knee Ruby Amador M.D. 07/24/2019 M25.561 Pain in right knee Ruby Amador M.D. 07/24/2019 M25.562 Pain in left knee Ruby Amador M.D. 07/24/2019 M25.462 Effusion, left knee Ruby Amador M.D. 07/24/2019 M25.461 Effusion, right knee Ruby Amador M.D. Plan of Treatment 07/24/2019 - Ruby Amador M.D.M17.0 Bilateral primary osteoarthritis of kneeFollow up:Follow up: 7-10 days before [id number] Pain in right kneeM25.562 Pain in left kneeM25.462 Effusion, left kneeM25.461 Effusion, right knee Functional Status Description No Information Available Mental Status Description No Information Available Referrals Description No Information Available
--- OUTSIDE RECORDS SUMMARY | 2019-09-19 06:34 | XMS REPORT | Continuity of Care Document ---
:1960 External Reference #:[id number] Author Name Anthony Che M.D. (transmitted by agent of provider Mariah Montalvo) Address [address] [place] [address] Care Team Providers Name Role Phone Ngozi Saavedra MD - Internal Care Team Information Manager Cardiac Cath Medicine Problems Active Problems Provider Date Localized, primary osteoarthritis Ruby Amador M.D. Onset: 07/24/2019 Social History Type Date Description Comments Sex Unknown ETOH Use Occasionally consumes alcohol Tobacco Use Start: Unknown Patient has never smoked Recreational Drug Use Denies Drug Use Smoking Status Reviewed: 08/30/19 Patient has never smoked Exercise Type/Frequency Exercises sporadically Allergies, Adverse Reactions, Alerts Active Allergies Reaction Severity Comments Date Percocet vomit 07/09/2016 Medications Active Medications SIG Qnty Indications Ordering Provider Date Long Arm Grabber 1units [facility] 05/18/2017 Jose Joyce MD [place] Seat Lift 1units [facility] 05/18/2017 Jose Joyce MD Walker With 5 Inch 1units [facility] 05/17/2017 Gabriella Joyce MD [facility] Shower Chair 1units [facility] 05/17/2017 Jose Joyce MD Cane 1units [facility] 05/17/2017 Jose Joyce MD Ibuprofen 1 tab by mouth Unknown 800mg Tablets in am and 600 mg tab @night. Medications Administered in Office Medication SIG Qnty Indications Ordering Provider Date Inj, Regadenoson, 0.1 MG Anthony Che M.D. 08/25/2019 Injection Technetium TC 99M Tetrofosmin, Anthony Che M.D. 08/25/2019 Per Unit Dose Up To 40 Millicuries Injection Technetium TC 99M Tetrofosmin, Anthony Che M.D. 08/25/2019 Per Unit Dose Up To 40 Millicuries Injection Depomedrol 40MG Rubin Joyce MD 01/04/2017 [...] Joyce MD 07/09/2016 Injection Depomedrol 40MG [place]INO [place] 05/01/2010 Injection Immunizations Description No Information Available Vital Signs Date Vital Result Comment 08/30/2019 10:29am Height 65 inches 5'5" Weight 213.00 lb with shoes Heart Rate 80 /min BP Systolic Sitting 124 mmHg lue reg cuff BP Diastolic Sitting 68 mmHg lue reg cuff BP Systolic Standing 126 mmHg lue reg cuff BP Diastolic Standing 70 mmHg lue reg cuff Respiratory Rate 14 /min BMI (Body Mass Index) 35.4 kg/m2 08/16/2019 1:49pm Height 65 inches 5'5" Weight 220.00 lb with shoes Heart Rate 80 /min BP Systolic Sitting 138 mmHg lue reg cuff BP Diastolic Sitting 80 mmHg lue reg cuff BP Systolic Standing 136 mmHg lue reg cuff BP Diastolic Standing 80 mmHg lue reg cuff Respiratory Rate 14 /min BMI (Body Mass Index) 36.6 kg/m2 Results Description No Information Available Procedures Date Code Description Status 08/25/2019 78776 Stress Test Completed 08/25/2019 85983 Myocardial Perfusion Imaging Tomographic (Spect) Multiple Completed Studies 08/16/2019 16011 EKG Tracing & Interpretation Completed Medical Devices Description No Information Available Encounters Type Date Location Provider Dx Diagnosis Office Visit 08/16/2019 [facility] Anthony Ibanez R06.02 Shortness of 2:00p Of Adelaida Che M.D. breath Z01.810 Encounter for preprocedural cardiovascular examination M17.12 Unilateral primary osteoarthritis, left knee Office Visit 07/24/2019 1:30p Yola Beltran M17.0 Bilateral primary [facility] osteoarthritis of [place] knee M25.561 Pain in right knee M25.562 Pain in left knee M25.462 Effusion, left knee M25.461 Effusion, right knee Assessments Date Code Description Provider 08/30/2019 Z01.810 Preoperative cardiovascular examination Anthony Che M.D. 08/30/2019 R06.02 Dyspnea on exertion Anthony Che M.D. 08/25/2019 Z01.810 Encounter for preprocedural cardiovascular Anthony Che M.D. examination 08/25/2019 R06.02 Shortness of breath Anthony Che M.D. 08/16/2019 R06.02 Dyspnea on exertion Anthony Che M.D. 08/16/2019 Z01.810 Preoperative cardiovascular examination Anthony Che M.D. 08/16/2019 M17.12 Unilateral primary osteoarthritis, left Anthony Che M.D. knee 07/24/2019 M17.0 Bilateral primary osteoarthritis of knee Ruby Amador M.D. 07/24/2019 M25.561 Pain in right knee Ruby Amador M.D. 07/24/2019 M25.562 Pain in left knee Ruby Amador M.D. 07/24/2019 M25.462 Effusion, left knee Ruby Amador M.D. 07/24/2019 M25.461 Effusion, right knee Ruby Amador M.D. Plan of Treatment Future Appointment(s):09/04/2019 9:15 am - Ruby Amador M.D. at [facility] at Zgkijb8009/19/2019 12:30 pm - Ervin Arteaga PA-C at [facility]09/19/2019 12:30 pm - TIM Roman at [facility]09/19/2019 12:30 pm - Ruby Amador M.D. at [facility] at Noopdv3808/30/2019 - Anthony Che M.D.Z01.810 Preoperative cardiovascular examinationFollow up:As ezduptI75.02 Dyspnea on exertion Functional Status Description No Information Available Mental Status Description No Information Available Referrals Description No Information Available
--- OUTSIDE RECORDS SUMMARY | 2019-09-19 06:34 | XMS REPORT | Continuity of Care Document ---
:1960 External Reference #:[id number] Author Name Ruby Amador M.D. (transmitted by agent of provider Tessa Mcdermott) Address [address] [facility] [place] [address] Care Team Providers Name Role Phone Ngozi Saavedra MD - Internal Care Team Information Physician Asst Medicine Problems Active Problems Provider Date Localized, primary osteoarthritis Ruby Amador M.D. Onset: 07/24/2019 Social History Type Date Description Comments Sex Unknown ETOH Use Occasionally consumes alcohol Tobacco Use Start: Unknown Patient has never smoked Recreational Drug Use Denies Drug Use Smoking Status Reviewed: 09/06/19 Patient has never smoked Exercise Type/Frequency Exercises sporadically Allergies, Adverse Reactions, Alerts Active Allergies Reaction Severity Comments Date Percocet vomit 07/09/2016 Medications Active Medications SIG Qnty Indications Ordering Provider Date Tramadol HCL 1 tab every 8 42tabs Ruby Amador M.D. 09/06/2019 50mg hours as needed Tablets for pain Long Arm Grabber 1units [facility]18[facility] [place] Se[facility]units [facility]/18[facility] Walker With 5 Inch 1units [facility] 05/17/2017 Gabriella Joyce MD [facility] Shower Chair 1units [facility] 05/17/2017 Jose Joyce MD Cane 1units [facility] 05/17/2017 [facility] Ibuprofen 1 tab by mouth [...] Available Vital Signs Date Vital Result Comment 09/06/2019 10:19am Height 66.5 inches Weight 214.44 lb Heart Rate 78 /min BP Systolic Sitting 128 mmHg BP Diastolic Sitting 86 mmHg Respiratory Rate 18 /min Pain Level 8 O2 % BldC Oximetry 96 % BMI (Body Mass Index) 34.1 kg/m2 08/30/2019 10:29am Height 65 inches 5'5" Weight 213.00 lb with shoes Heart Rate 80 /min BP Systolic Sitting 124 mmHg lue reg cuff BP Diastolic Sitting 68 mmHg lue reg cuff BP Systolic Standing 126 mmHg lue reg cuff BP Diastolic Standing 70 mmHg lue reg cuff Respiratory Rate 14 /min BMI (Body Mass Index) 35.4 kg/m2 Results Description No Information Available Procedures Date Code Description Status 09/06/2019 43685 Inject/Drain Joint/Bursa Major W/O US Completed 08/25/2019 18415 Stress Test Completed 08/25/2019 96008 Myocardial Perfusion Imaging Tomographic (Spect) Multiple Completed Studies 08/16/2019 33368 EKG Tracing & Interpretation Completed Medical Devices Description No Information Available Encounters Type Date Location Provider Dx Diagnosis Office Visit 08/30/2019 [facility] Anthony Ibanez Z01.810 Encounter for 10:30a Of Adelaida Che M.D. preprocedural cardiovascular examination R06.02 Shortness of breath M17.0 Bilateral primary osteoarthritis of knee Office Visit 08/16/2019 2:00p [facility] Anthony Ibanez R06.02 Shortness of Of Adelaida Che M.D. breath Z01.810 Encounter for preprocedural cardiovascular examination M17.12 Unilateral primary osteoarthritis, left knee Office Visit 07/24/2019 1:30p [place] Ruby M17.0 Bilateral primary [facility] at [facility] osteoarthritis of [place] knee M25.561 Pain in right knee M25.562 Pain in left knee M25.462 Effusion, left knee M25.461 Effusion, right knee Assessments Date Code Description Provider 09/06/2019 M25.562 Pain in left knee Ruby Amador M.D. 09/06/2019 M25.462 Effusion, left knee Ruby Amador M.D. 09/06/2019 M17.12 Unilateral primary osteoarthritis, left Ruby Amador M.D. knee 09/06/2019 M25.561 Pain in right knee Ruby Amador M.D. 09/06/2019 M25.461 Effusion, right knee Ruby Amador M.D. 09/06/2019 M17.11 Unilateral primary osteoarthritis, right Ruby Amador M.D. knee 08/30/2019 Z01.810 Preoperative cardiovascular examination Anthony Che M.D. 08/30/2019 R06.02 Dyspnea on exertion Anthony Che M.D. 08/30/2019 M17.0 Bilateral primary osteoarthritis of knee Anthony Che M.D. 08/25/2019 Z01.810 Encounter for [...] Ruby Amador M.D. Plan of Treatment Future Appointment(s):10/06/2019 10:45 am - Ruby Amador M.D. at [facility] at Crnyzj5209/19/2019 12:30 pm - Ervin Arteaga PA-C at [facility] at Zqswbs3309/19/2019 12:30 pm - TIM Roman at [facility] at Wbzfrq9209/19/2019 12:30 pm - Ruby Amador M.D. at [facility] at Msuede1109/06/2019 - Ruby Amador M.D.M25.562 Pain in left kneeFollow up:Follow up: 2 weeks after mkxndarH12.462 Effusion, left kneeM17.12 Unilateral primary osteoarthritis, left kneeM25.561 Pain in right kneeFollow up:Follow up:M25.461 Effusion, right kneeM17.11 Unilateral primary osteoarthritis, right knee Functional Status Description No Information Available Mental Status Description No Information Available Referrals Description No Information Available
--- OUTSIDE RECORDS SUMMARY | 2019-09-19 06:34 | XMS REPORT | Continuity of Care Document ---
:1960 External Reference #:[id number] Author Name Ngozi Saavedra MD Address [address] [place] [address] Care Team Providers Name Role Phone Rubin Lam MD Care Team Information Manufacturing Systems Engineer [phone] Care Team Information Manufacturing Systems Engineer [phone] Rheumatology Problems Active Problems Provider Date Benign essential hypertension Ngozi Saavedra MD Onset: 05/14/2008 Essential hypertension Ngozi Saavedra MD Onset: 07/23/2015 Undifferentiated inflammatory polyarthritis Davin Linares PA Onset: 2016 Social History Type Date Description Comments Sex Unknown Tobacco Use Start: Unknown Never Smoked Cigarettes ETOH Use Occasionally consumes alcohol Recreational Drug Use Denies Drug Use Tobacco Use Start: Unknown Patient has never smoked Smoking Status Reviewed: 12/06/18 Patient has never smoked Allergies, Adverse Reactions, Alerts Description No Known Drug Allergies Medications Active Medications SIG Qnty Indications Ordering Date Provider Sulfamethoxazole/Trimet 1 by mouth twice 6tabs R35.0 Quentin, 08/28/2019 hoprim DS a day Ngozi Hoyos MD 800-160mg Tablets Cyclobenzaprine HCL take 1/2 to 1 30tabs M54.2 Quentin, 08/28/2019 10mg tablet every Ngozi Hoyos MD Tablets night at bedtime Shingrix 2 shot series 2units Z00.01 Quentin, 12/06/2018 50mcg/0.5ML Ngozi Hoyos MD Suspension Rec Massage Therapy please cover as M54.2 Quentin, 10/11/2018 medical necessity Ngozi Hoyos MD Gabapentin take one tablet 60tabs M54.2 Macadam, 10/11/2018 600mg Tablets by mouth two Ngozi Hoyos MD times a day Vitamin D 1 by mouth every E55.9 Macadam, 12/13/2017 2000Unit Capsules day Ngozi Hoyos MD Medications Administered in Office Medication SIG Qnty Indications Ordering Provider Date Depo Medrol 80 MG Ngozi Saavedra MD 08/06/2017 Injection Depo Medrol 80 MG Ngozi Saavedra MD 08/06/2017 Injection Depo Medrol 80 MG Ngozi Saavedra MD 02/19/2015 Injection Depo Medrol 80 MG Ngozi Saavedra MD 02/19/2015 Injection Torodol Injection 15 MG Dose Ngozi Saavedra MD 11/01/2009 Injection Torodol Injection 15 MG Dose Ngozi Saavedra MD 11/01/2009 Injection Torodol Injection 15 MG Dose Ngozi Saavedra MD 11/01/2009 Injection Torodol Injection 15 MG Dose Ngozi Saavedra MD 11/01/2009 Injection Immunizations CPT Code Status Date Vaccine Lot # [id number] Given 08/28/2019 Influenza Virus Vaccine,Quadrivalent,Split,Preserv Free, 0.5mL,[place] [address] Given 10/11/2018 Influenza Vac, Quadrivalent, Split, 0.5mL Dosage, [id number] Im Use 03676 Given 07/23/2015 Influenza Vac, Quadrivalent, Split, 0.5mL Dosage, [id number] Im Use [id number] Given 02/04/2010 Tdap (Adacel) Ages 7 And Above Only [id number] Refused 07/05/2017 Influenza Vac, Quadrivalent, Split, 0.5mL Dosage, Im Use [id number] Refused 03/02/2017 Influenza Vac, Quadrivalent, Split, 0.5mL Dosage, Im Use Vital Signs Date Vital Result Comment 08/28/2019 10:58am Body Temperature 97.5 F Weight 215.00 lb Heart Rate 80 /min BP Systolic 130 mmHg BP Diastolic 80 mmHg Height 66 inches 5'6" BMI (Body Mass Index) 34.7 kg/m2 12/06/2018 11:32am Weight 211.00 lb Heart Rate 80 /min BP Systolic 144 mmHg BP Diastolic 82 mmHg BP Systolic Recheck 132 mmHg BP Diastolic Recheck 78 mmHg Height 66 inches 5'6" BMI (Body Mass Index) 34.1 kg/m2 Results Test Acquired Date Facility Test Result H/L Range Note Laboratory test 08/28/2019 [facility] Urine Culture <pending> finding Procedures Date Code Description Status 07/28/2019 [id number] Mammogram Completed 02/01/2017 [id number] Mammogram Completed 05/08/2011 [id number] Mammogram Completed 05/23/2009 [id number] Mammogram Completed Medical Devices Description No Information Available Encounters Description No Information Available Assessments Date Code Description Provider 08/28/2019 E66.9 Obesity, unspecified Ngozi Saavedra MD 08/28/2019 Z01.818 Encounter for other preprocedural Ngozi Saavedra MD examination 08/28/2019 I10 Essential (primary) hypertension Ngozi Saavedra MD 08/28/2019 M17.0 Bilateral primary osteoarthritis of knee Ngozi Saavedra MD 08/28/2019 M54.2 Cervicalgia Ngozi Saavedra MD 08/28/2019 E55.9 Vitamin D deficiency, unspecified Ngozi Saavedra MD 08/28/2019 M06.00 Rheumatoid arthritis without rheumatoid Ngozi Saavedra MD factor, unspecified 08/28/2019 G47.33 Obstructive sleep apnea (adult) (pediatric) Ngozi Saavedra MD 08/28/2019 E78.2 Mixed hyperlipidemia Ngozi Saavedra MD 08/28/2019 R35.0 Frequency of micturition Ngozi Saavedra MD 08/28/2019 N64.4 Mastodynia Ngozi Saavedra MD 08/28/2019 R13.10 Dysphagia, unspecified Ngozi Saavedra MD 08/28/2019 Z68.34 Body mass index (BMI) 34.0-34.9, adult Ngozi Saavedra MD Plan of Treatment Future Appointment(s):08/29/2019 10:00 am - Nurses Schedule [facility] at [facility]11/2019 10:30 am - Ngozi Saavedra MD at X[facility]q7008/28/2019 - Ngozi Saavedra MDE66.9 Obesity, ooapibmxhjgG66.818 Encounter for other preprocedural arqomfxdrphL64 Essential (primary) hypertensionFollow up:6 mos as EV/PEM17.0 Bilateral primary osteoarthritis of kneeM54.2 CervicalgiaNew Medication: Cyclobenzaprine HCL 10 mg - take 1/2 to 1 tablet every night at kvjdqyoX24.9 Vitamin D deficiency, qyermsanuhmB05.00 Rheumatoid arthritis without rheumatoid factor, ddxwvlyaqzkG53.33 Obstructive sleep apnea (adult) (pediatric)E78.2 Mixed hyperlipidemiaFollow up:FBW w/in 1-2 wksR35.0 Frequency of micturitionNew Medication:Sulfamethoxazole/Trimethoprim DS 800-160 mg - 1 by mouth twice a dayN64.4 MastodyniaNew Xrays:LEFT Breast Ultrasound, Ordered: 08/28/19R13.10 Dysphagia, unspecifiedNew Xrays:68863 Esphogram, Ordered: 08/28/19Referral:Mercedez Boland MD,Z68.34 Body mass index (BMI) 34.0-34.9, adult Functional Status Description No Information Available Mental Status Description No Information Available Referrals Refer to Dr Reason for Referral Status Appt Date Mercedez Jang MD DYSPHAGIA Created [address] [place] [address] [phone]
--- OUTSIDE RECORDS SUMMARY | 2019-09-19 06:34 | XMS REPORT | Continuity of Care Document ---
:1960 External Reference #:[id number] Author Name Emily Prescott Care Team Providers Name Role Phone Ngozi Saavedra MD - Internal Care Team Information Gas Fitter Apprentice Medicine Problems Active Problems Provider Date Localized, [...] Ordering Provider Date Long Arm Grabber 1units [facility] 05/18/2017 Jose Joyce MD [place] Seat Lift 1units [facility] 05/18/2017 Jose Joyce MD Walker With 5 Inch 1units [facility] 05/17/2017 Gabriella Joyce MD [facility] [place] [place] Shower Chair 1units [facility] 05/17/2017 Jose Joyce MD Cane 1units [facility] 05/17/2017 Jose Joyce MD Ibuprofen 1 by [...] Date Location Provider Dx Diagnosis Office Visit 07/24/2019 [facility] Ruby Amador, Dima7.0 Bilateral primary 1:[place]p [place] osteoarthritis of knee M25.561 Pain in right knee M25.562 Pain in left knee M25.462 Effusion, left knee M25.461 Effusion, right knee Assessments Date Code Description Provider 07/24/2019 M17.0 Bilateral primary osteoarthritis of knee Ruby Amador M.D. 07/24/2019 M25.561 Pain in right knee Ruby Amador M.D. 07/24/2019 M25.562 Pain in left knee Ruby Amador M.D. 07/24/2019 M25.462 Effusion, left knee Ruby Amador M.D. 07/24/2019 M25.461 Effusion, right knee Ruby Amador M.D. Plan of Treatment Future Appointment(s):09/04/2019 9:15 am - Ruby Amador M.D. at [facility]09/19/2019 12:30 pm - Ruby Amador M.D. at [facility]07/24/2019 - Ruby Amador M.D.M17.0 Bilateral primary osteoarthritis of kneeFollow up:Follow up: 7-10 days before nxsxnlrN52.561 Pain in right kneeM25.562 Pain in left kneeM25.462 Effusion, left kneeM25.461 Effusion, right knee Functional Status Description No Information Available Mental Status Description No Information Available Referrals Description No Information Available
--- OUTSIDE RECORDS SUMMARY | 2019-09-19 06:34 | XMS REPORT | Continuity of Care Document ---
:1960 External Reference #:[id number] Author Name Jacquie Palmer PA-C Address [address] [place] [address] Care Team Providers Name Role Phone Ngozi Saavedra MD Care Team Information Seat Coverer [phone] Problems Active Problems Provider Date Gastroesophageal reflux disease Jacquie Palmer PA-C Onset: 09/11/2019 Esophageal dysphagia Jacquie Palmer PA-C Onset: 09/11/2019 Social History Type Date Description Comments Sex Unknown Tobacco Use Start: Unknown Patient has never smoked Smoking Status Reviewed: 09/11/19 Patient has never smoked Allergies, Adverse Reactions, Alerts Active Allergies Reaction Severity Comments Date Percocet 09/11/2019 Medications Active Medications SIG Qnty Indications Ordering Provider Date Omeprazole 1 cap by mouth 30caps R13.14 Mercedez 09/11/2019 20mg daily 30 minutes MD Laine Capsules DR before breakfast Shingrix 2 shot series 2units Z00.01 Ngozi Saavedra M 12/06/2018 50mcg/0.5ML D Suspension Rec Vitamin D 1 by mouth every E55.9 Ngozi Saavedra M 12/13/2017 50mcg ([address]) Tablets History Medications Sulfamethoxazole/Trimethoprim DS 1 by 6tabs R35.0 Ngozi Saavedra MD 08/28 - 800-160mg mouth 09/11/2019 Tablets twice a day Cyclobenzaprine HCL take 1/2 30tabs M54.2 Ngozi Saavedra MD 08/28/2019 - 10mg Tablets to 1 09/11/2019 tablet every night at bedtime Immunizations CPT Code Status Date Vaccine Lot # [id number] Given 08/28/2019 Influenza Virus Vaccine, Quadrivalent, Split, Preservative Free [id number] Given 02/04/2010 Tetanus, Diphtheria Toxoids/Acellular Pertussis Vaccine 7 Or > Vital Signs Date Vital Result Comment 09/11/2019 9:46am Height 66.5 inches 5'6.50" Weight 214.00 lb BP Systolic 148 mmHg BP Diastolic 95 mmHg Heart Rate 74 /min BMI (Body Mass Index) 34.0 kg/m2 Results Description No Information Available Procedures Description No Information Available Medical Devices Description No Information Available Encounters Description No Information Available Assessments Date Code Description Provider 09/11/2019 R13.14 Dysphagia, pharyngoesophageal phase Jacquie Palmer PA-C 09/11/2019 K21.9 Gastro-esophageal reflux disease without Jacquie Palmer PA-C esophagitis Plan of Treatment Future Appointment(s):11/07/2019 8:00 am - Hayden Ward DO at [facility]/11/2019 - SARAN Pruitt13.14 Dysphagia, pharyngoesophageal phaseNew Medication:Omeprazole 20 mg - 1 cap by mouth daily 30 minutes before vbzwxuwreX38.9 Gastro-esophageal reflux disease without esophagitis Functional Status Description No Information Available Mental Status Description No Information Available Referrals Description No Information Available
--- OUTSIDE RECORDS SUMMARY | 2019-09-19 06:34 | XMS REPORT | Continuity of Care Document ---
:1960 External Reference #:[id number] Author Name Anthony Che M.D. (transmitted by agent of provider Mariah Montalvo) Address [address] [place] [address] Care Team Providers Name Role Phone Ngozi Saavedra MD - Internal Care Team Information Hedis Coordinator Medicine Problems Active Problems Provider Date Localized, primary osteoarthritis Ruby Amador M.D. Onset: 07/24/2019 Social History Type Date Description Comments Sex Unknown ETOH Use Occasionally consumes alcohol Tobacco Use Start: Unknown Patient has never smoked Recreational Drug Use Denies Drug Use Smoking Status Reviewed: 08/16/19 Patient has never smoked Exercise Type/Frequency Exercises sporadically Allergies, Adverse Reactions, Alerts Active Allergies Reaction Severity Comments Date Percocet vomit 07/09/2016 Medications Active Medications SIG Qnty Indications Ordering Provider Date Long Arm Grabber 1units [facility] 05/18/2017 Jose Joyce MD [place] Seat Lift 1units [facility] 05/18/2017 Jose Joyce MD Walker With 5 Inch 1units [facility] 05/17/2017 Gabriella Joyce MD [facility] Shower Chair 1units [facility] 05/17/2017 Jose Joyce MD Cane 1units [facility] 05/17/2017 Jose Joyce MD Ibuprofen 1 [...] Available Vital Signs Date Vital Result Comment 08/16/2019 1:49pm Height 65 inches 5'5" Weight 220.00 lb with shoes Heart Rate 80 /min BP Systolic Sitting 138 mmHg lue reg cuff BP Diastolic Sitting 80 mmHg lue reg cuff BP Systolic Standing 136 mmHg lue reg cuff BP Diastolic Standing 80 mmHg lue reg cuff Respiratory Rate 14 /min BMI (Body Mass Index) 36.6 kg/m2 07/24/2019 1:48pm Height 65 inches 5'5" Weight 218.00 lb Heart Rate 84 /min BP Systolic 158 mmHg BP Diastolic 98 mmHg Body Temperature 97.7 F Pain Level 8 BMI (Body Mass Index) 36.3 kg/m2 Results Description No Information Available Procedures Date Code Description Status 08/16/2019 23542 EKG Tracing & Interpretation Completed Medical Devices Description No Information Available Encounters Type Date Location Provider Dx Diagnosis Office Visit 08/16/2019 [facility] Anthony Ibanez R06.02 Shortness of 2:00p Of Adelaida Che M.D. breath Z01.810 Encounter for preprocedural cardiovascular examination Office Visit 07/24/2019 1:30p [place] Ruby M17.0 Bilateral primary Orthopedics at [facility] osteoarthritis of [place] knee M25.561 Pain in right knee M25.562 Pain in left knee M25.462 Effusion, left knee M25.461 Effusion, right knee Assessments Date Code Description Provider 08/16/2019 R06.02 Dyspnea on exertion Anthony Che M.D. 08/16/2019 Z01.810 Preoperative cardiovascular examination Anthony Che M.D. 07/24/2019 M17.0 Bilateral primary osteoarthritis of knee Rubysimone Amador M.D. 07/24/2019 M25.561 Pain in right knee Ruby Amador M.D. 07/24/2019 M25.562 Pain in left knee Ruby Amador M.D. 07/24/2019 M25.462 Effusion, left knee Ruby Amador M.D. 07/24/2019 M25.461 Effusion, right knee Ruby Amador M.D. Plan of Treatment Future Appointment(s):08/30/2019 10:30 am - Anthony [facility] M.D. at [facility]08/25/2019 9:30 am - Anthony Che M.D. at [facility]09/04/2019 9:15 am - [facility] 12:30 pm - [facility] - Anthony Che M.D.R06.02 Dyspnea on lvedvxrfH68.810 Preoperative cardiovascular examinationNew Orders:Stress Test, Pharmacologic Nuclear (Lexiscan), Ordered: 08/16/19Follow up:1 month Functional Status Description No Information Available Mental Status Description No Information Available Referrals Description No Information Available
[2019-09-19] MEDS ORDERED: Famotidine IV* 10 MG/ML 2 ML (20 mg) ONE (07:53)
[2019-09-19] MEDS ORDERED: ceFAZolin 2 GM in NS PREMIX(*) 2 GM/100 ML BAG IVPB ONE (07:53)
[2019-09-19] MEDS ORDERED: ROPIVACAINE 5 MG/ML 30 ML BTL (0.5%) ONE ×2 (08:41→09:19)
[2019-09-19] MEDS ORDERED: Midazolam* 1 MG/ML 5 ML VIAL (5 MG) ONE (09:17)
[2019-09-19] MEDS ORDERED: Lidocaine 1% MPF ** 5 ML VIAL ONE (09:19)
[2019-09-19] MEDS ORDERED: Midazolam* 1 MG/ML 2 ML VIAL (2 MG) ONE ×3 (09:59→10:32)
[2019-09-19] MEDS ORDERED: KETAMINE HCL* 50 MG/ML 10 ML VIAL ONE (10:11)
[2019-09-19] MEDS ORDERED: Dexamethasone IV* 4 MG/ML 1 ML (4 MG) ONE (10:41)
[2019-09-19] MEDS ORDERED: Propofol* 10 MG/ML 20 ML BTL ONE (10:41)
[2019-09-19] MEDS ORDERED: Propofol* 500 MG/50 ML BTL ONE (10:41)
[2019-09-19] MEDS ORDERED: Ondansetron INJ* 2 MG/ML VIAL ONE (10:41)
[2019-09-19] MEDS ORDERED: Ketorolac INJ* 30 MG/ML 1 ML VIAL ONE (10:41)
[2019-09-19] MEDS ORDERED: Glycopyrrolate IV* 0.2 MG/ML 1 ML VIAL ONE (10:41)
[2019-09-19] MEDS ORDERED: Acetaminophen TAB* 325 MG PO PRN (11:42)
[2019-09-19] MEDS ORDERED: Naloxone* 0.4 MG/ML 1 ML VIAL IV PRN (11:42)
[2019-09-19] MEDS ORDERED: HYDROmorphone INJ1* 1 MG/ML SYRINGE IV PRN (11:42)
[2019-09-19] MEDS ORDERED: DiMENhydriNATE IV* 50 MG/ML VIAL IV PUSH PRN (11:42)
[2019-09-19] MEDS ORDERED: HYDROmorphone INJ1* 1 MG/ML SYRINGE ONE (11:55)
[2019-09-19] MEDS ORDERED: Ondansetron TAB* 4 MG PO PRN (12:16)
[2019-09-19] MEDS ORDERED: Polyethylene Glycol 3350* 17 GM PACKET PO PRN (12:16)
[2019-09-19] MEDS ORDERED: Ondansetron INJ* 2 MG/ML VIAL IV PRN (12:16)
[2019-09-19] MEDS ORDERED: diPHENhydraMINE IV* 50 MG/ML 1 ml VIAL (BENADRYL) IV PRN (12:16)
[2019-09-19] MEDS ORDERED: Magnesium Hydroxide LIQ* 30 ML UDC PO PRN (12:16)
[2019-09-19] MEDS ORDERED: diPHENhydraMINE PO* 25 MG PO PRN (12:16)
[2019-09-19] MEDS ORDERED: HYDROmorphone TAB* 2 MG PO PRN (12:19)
--- NOTE | 2019-09-19 13:27 | PN ---
Progress Note - Progress Note Date of Service: 09/19/19 Note: resting comfortably in recovery; able to DF/PF, 2+ DP pulse and intact sensation ; dressing c/d/i
[2019-09-19] MEDS: Lactated Ringers 1000 ML Bag* 1,000 ML IV SCH (14:02)
[2019-09-19] MEDS: traMADol TAB* 50 MG PO PRN ×2 (14:21→21:04)
[2019-09-19] MEDS: Acetaminophen TAB* 325 MG PO SCH ×2 (14:22→22:42)
[2019-09-19] MEDS: Ondansetron ODT TAB* 4 MG PO PRN (16:23)
[2019-09-19] MEDS: ceFAZolin 1 GM ADVAN(*) 1 GM in NS 0.9% 50 ML* 50 ML IVPB SCH (17:20)
--- NOTE | 2019-09-19 19:02 | OP ---
Operative Report - Blank - Operative Report Date of Operation: 09/19/19 Note: DAVID HYMAN 1960 Date of Surgery: 09/19/19 Ruby Amador MD Silk Winding Machine Operator: Jerardo DUMONT did help throughout the procedure with preparation of the knee, wound retraction, manipulation of the knee, and wound closure. Anesthesiologist: Melly Purcell MD Anesthesia Type: Spinal Preoperative Diagnosis: Left severe degenerative osteoarthritis of the knee Postoperative Diagnosis: As above Procedure Performed: Left Total Knee Arthroplasty Tourniquet time: 43 minutes Complications: None Specimen: Bone and cartilage from the left knee joint sent to pathology. Hardware Used: Cemented Del Valle and Nephew total knee hardware was used - For the femur a size 5 narrow left oxinium legion posterior stabilized femoral component , for the tibia a size left 3 ary II tibial baseplate, for the insert a size 9mm 3-4 posterior stabilized articular polyethylene insert, and for the patella a size 35 3-peg all poly patella. Brief History/Indication: DAVID HYMAN was known in clinic and had a history of severe left knee pain and swelling. She failed conservative treatment with anti-inflammatories, pain pills, intra-articular injections and physical therapy. She elected to undergo left total knee arthroplasty due to continued pain and decreased quality of life. Radiographs showed severe end stage osteoarthritis of the knee with bone on bone contact. Informed consent was obtained from the patient. She understood the risks of surgery included but were not limited to: bleeding, infection, damage to nearby structures, intraoperative fracture, nerve palsy, failure of the hardware, early loosening, knee stiffness or loss of motion, anesthesia complications, stroke, heart attack , blood clot and . She wished to proceed. Intra-Operative Findings: Intraoperatively the patient was noted to have severe loss of cartilage in all 3 compartments of the knee. Description of the Procedure: DAVID HYMAN was identified in the preanesthesia unit. Her left knee was marked as the correct operative side. Informed consent was signed and placed in the chart. The patient was taken to the operating room and placed under anesthesia without complication. A gallagher catheter was placed. A tourniquet was placed on the left thigh. The left lower extremity was prepped and draped in the usual sterile fashion. Preoperative time-out was made to correctly identify the patient, side and site. Appropriate intraoperative antibiotics were given within one hour of incision. Tourniquet was inflated. A midline incision was made and carried sharply down to the extensor mechanism. A new 10 blade was used to make a standard medial parapatellar arthrotomy. The patella was subluxed laterally. Electrocautery was used to dissect soft tissue off the superomedial tibia to the midsagittal plane. The knee was flexed up. The anterior horn of the lateral meniscus and the ACL were sharply incised. A drill was used to enter the distal femur. The intramedullary distal femoral cutting guide was pinned on the distal femur. The oscillating saw was used to make the distal femoral cut. The external rotation guide was pinned on the distal femur and the distal femur was sized to a size 5. The size 5 multi-cutting jig was pinned on the distal femur. The oscillating saw was used to make the appropriate 4 chamfer cuts. Next the PCL was completely released. The extramedullary tibial cutting guide was pinned on the proximal tibia and the oscillating saw was used to make the proximal tibial cut perpendicular to the mechanical axis of the tibia. The bone was carefully removed. The knee was brought out into full extension. The spacer block was placed and had excellent fit with the knee in full extension. The medial and lateral ligaments were well balanced. The flexion and extension gaps were well balanced. The knee was flexed up. Lamina harness brusher was placed both medially and laterally. Any remaining meniscus was removed with electrocautery. Curved osteotome was used to remove any posterior osteophytes. The tibial tray and drop tyler were placed and confirmed a satisfactory tibial cut. The size 5 left narrow femoral trial was impacted onto the distal femur. This trial had excellent fit and stability. The box for the posterior stabilized implant was prepared using a box cut osteotome and a reamer. Next a tibial tray trial and 9 mm insert trial was placed. The knee was taken through a range of motion and had full extension to 130 degrees of flexion. Patellofemoral tracking was satisfactory. The patella was inverted and sized to a size 35. Three peg holes were drilled through the size 35 drill guide. The trial patella was placed and the knee was taken through a range of motion. There was satisfactory patellofemoral tracking. All trials were removed. The tibia was subluxed anteriorly and sized to a size 3. The proximal tibial was prepared with a size 3 keel punch. All bony cut surfaces were irrigated with sterile saline and dried. Final implants were cemented into place starting with the tibia, followed by the femur, and last the patella. A 9 mm insert trial was placed and the knee was brought into full extension. Tourniquet was turned down and the knee was copiously irrigated with sterile saline. Electrocautery was used to obtain meticulous hemostasis. Once the cement had fully cured, the insert trial was removed. Any excess cement was removed from around the hardware and capsule. Final insert chosen was a 9 mm posterior stabilized Ary II articular insert size 3-4. Stability of the insert was checked and noted to be stable. The extensor mechanism was closed using number 1 vicryls. The rest of the incision was closed in a layered fashion using 0 and 2-0 vicryls. The skin was closed using 3-0 nylon suture. Sterile xeroform, 4x4s and webril were used to cover the incision. Emmanuel wrap and cold pack were used to cover the dressings. The patients anesthesia was reversed without difficulty. She was taken to the PACU in stable condition. Intended weight-bearing will be as tolerated.
[2019-09-19] MEDS: Morphine INJ* 2 MG/ML 1 ML SYRINGE (TWO MG - NEW SYRINGE VERSION) IV PRN (19:35)
[2019-09-19] MEDS: Docusate CAP* 100 MG PO SCH (21:03)
[2019-09-19] MEDS: Cyclobenzaprine TAB* 10 MG PO PRN (21:03)
[2019-09-19] MEDS: Magnesium Hydroxide LIQ* 30 ML UDC PO SCH (21:03)
[2019-09-20] MEDS: Lactated Ringers 1000 ML Bag* 1,000 ML IV SCH (00:21)
[2019-09-20] MEDS: ceFAZolin 1 GM ADVAN(*) 1 GM in NS 0.9% 50 ML* 50 ML IVPB SCH ×2 (01:30→10:16)
[2019-09-20] MEDS: Morphine INJ* 2 MG/ML 1 ML SYRINGE (TWO MG - NEW SYRINGE VERSION) IV PRN ×2 (04:11→09:12)
[2019-09-20] MEDS: Acetaminophen TAB* 325 MG PO SCH ×3 (05:43→21:02)
[2019-09-20 06:19] LABS: Hematocrit 36 % (35-47); Hemoglobin 12.4 g/dL (12.0-16.0); Mean Platelet Volume 7.3 fL (7.4-10.4); Platelet Count 242 10^3/uL (150-450)
[2019-09-20 06:39] LABS: BUN/Creatinine Ratio 20.3 (8-20); Calcium 9.5 mg/dL (8.6-10.3); EGFR African American 125.8 (>60); Potassium 4.2 mmol/L (3.5-5.0)
[2019-09-20] MEDS: Hydrocodone/Acetamin 10/325 1 TAB PO PRN ×4 (07:59→20:59)
[2019-09-20] MEDS: Ondansetron ODT TAB* 4 MG PO PRN (07:59)
[2019-09-20] MEDS: Cyclobenzaprine TAB* 10 MG PO PRN ×3 (09:12→23:59)
[2019-09-20] MEDS: Apixaban* 2.5 MG TAB PO SCH ×2 (09:12→21:00)
[2019-09-20] MEDS: Docusate CAP* 100 MG PO SCH ×2 (09:12→21:00)
[2019-09-20] MEDS: Magnesium Hydroxide LIQ* 30 ML UDC PO SCH ×2 (09:12→20:58)
[2019-09-20] MEDS: Vitamin THERAPEUTIC TAB PO SCH (09:13)
--- NOTE | 2019-09-20 10:25 | PN ---
Progress Note - Progress Note Date of Service: 09/20/19 SOAP: Subjective: []Pt seen at bedside. Knee pain is well controlled but she is feeling nauseous. Denies CP, SOB, dizziness, abd pain. Objective: []Gen: NAD LLE: left knee dressing CDI, thigh soft, DF/PF intact, DP2+, sensation intact to light touch distally Calves supple and nontender without erythema, edema or palpable cords Assessment: []POD 1 sp LTK Plan: []WBAT PT eliquis 2.5 mg po BID x 30 days post op Nausea not controlled with zofran, added compazine Plan DC home tomorrow Vital Signs Temp 98.3 F 09/20/19 08:23 Pulse 90 09/20/19 08:23 Resp 18 09/20/19 10:23 BP 131/63 09/20/19 08:23 Pulse Ox 95 09/20/19 08:23 Intake & Output 09/19/19 09/20/19 09/20/19 18:59 06:59 18:59 Intake Total 1300 2903 Output Total 550 1250 200 Balance 750 1653 -200 Weight 209 lb Intake: IV Fluids 1300 1603 LR 1300 1603 IVPB 100 ABX - CEFAZOLIN 50 LR 50 Oral 1200 Output: Urine 0 700 Vanessa 550 550 Emesis 200 Other: # Bowel Movements 0 Laboratory Last Values Hgb 12.4 g/dL (12.0-16.0) 09/20/19 06:07 Hct 36 % (35-47) 09/20/19 06:07 Plt Count 242 10^3/uL (150-450) 09/20/19 06:07 MPV 7.3 fL (7.4-10.4) L 09/20/19 06:07 Sodium 137 mmol/L (135-145) 09/20/19 06:07 Potassium 4.2 mmol/L (3.5-5.0) 09/20/19 06:07 Chloride 104 mmol/L (101-111) 09/20/19 06:07 Carbon Dioxide 30 mmol/L (22-32) 09/20/19 06:07 Anion Gap 3 mmol/L (2-11) 09/20/19 06:07 BUN 12 mg/dL (6-24) 09/20/19 06:07 Creatinine 0.59 mg/dL (0.51-0.95) 09/20/19 06:07 Est GFR ( Amer) 125.8 (>60) 09/20/19 06:07 Est GFR (Non-Af Amer) 104.0 (>60) 09/20/19 06:07 BUN/Creatinine Ratio 20.3 (8-20) H 09/20/19 06:07 Glucose 120 mg/dL (70-100) H 09/20/19 06:07 Calcium 9.5 mg/dL (8.6-10.3) 09/20/19 06:07
[2019-09-20] MEDS: PROCHLORPERAZINE INJ 5 MG/ML 2 ML VIAL IV PRN (12:21)
[2019-09-20] MEDS: traMADol TAB* 50 MG PO PRN (16:09)
[2019-09-21] MEDS: traMADol TAB* 50 MG PO PRN
[2019-09-21] MEDS: Hydrocodone/Acetamin 10/325 1 TAB PO PRN ×3 (04:56→13:35)
[2019-09-21] MEDS: Acetaminophen TAB* 325 MG PO SCH ×2 (05:16→12:54)
[2019-09-21 05:24] LABS: Hematocrit 36 % (35-47); Hemoglobin 12.3 g/dL (12.0-16.0); Mean Platelet Volume 7.3 fL (7.4-10.4); Platelet Count 217 10^3/uL (150-450)
[2019-09-21 08:14] VITALS: BP 158/80
[2019-09-21] MEDS ORDERED: Scopolamine 1.5 mg* PATCH TRANSDERM SCH (09:00)
[2019-09-21] MEDS: PROCHLORPERAZINE INJ 5 MG/ML 2 ML VIAL IV PRN (09:00)
--- NOTE | 2019-09-21 09:35 | DS ---
Orthopedic Discharge Summary - Discharge Summary Date of Admission:09/19/19 Date of Discharge: 09/21/19 Date of Surgery: 09/19/19 Attending Orthopedic Provider: Dr Amador Pre-operative Diagnosis: left knee osteoarthritis Operative Procedure: left total knee replacement Disposition of Patient: home with home PT and nursing Condition of Patient: stable History: DAVID HYMAN is a 59 year old F with years of increasingly severe left knee pain. Patient has failed conservative management and has elected to undergo a left total knee replacement Hospital Course: DAVID was admitted to [facility] on 09/19/19. Patient underwent a left total knee replacement without complication followed by a brief recovery in PACU and transfer to the Short Stay Surgical Unit in stable condition. Our physical therapy service also participated in this patients care. Post-op day 1: patient was alert and in no acute distress. Dressing was clean, dry and intact. Operative extremity dorsiflexion and plantarflexion intact, sensation intact to light touch distally, DP2+. Post-op day two: Patient was without CP, SOB, dizziness or nausea. Pain was well controlled. She appeared well in NAD, dressing was changed, incision was clean, dry and intact. Patient was deemed to be medically and orthopedically stable for discharge. Physical therapy goals were met. Due to nausea during her stay she was sent home with a scopolamine patch to be removed in 3 days. Home Medications Medication Instructions Recorded Confirmed Type Cholecalciferol TAB* [Vitamin D 2,000 units PO QAM 03/15/18 09/19/19 History TAB*] Acetaminophen TAB* [Tylenol TAB*] 975 mg PO Q8HR tab 09/21/19 Rx Apixaban* [Eliquis*] 2.5 mg PO BID #60 tab 09/21/19 Rx Docusate CAP* [Colace Cap*] 100 mg PO BID PRN #90 cap 09/21/19 Rx HYDROcodone/ACETAMIN 5-325 MG* 2 tab PO Q4H PRN #70 tab MDD 10 09/21/19 Rx [Hankamer 5-325 TAB*] Hydrocodone/Acetamin 10/325(NF 2 tab PO Q4H PRN #70 tab MDD 10 09/21/19 Rx [Hankamer 10/325 (NF)] Scopolamine 1.5 mg* PATCH* 1 patch TRANSDERM Q72H patch 09/21/19 Rx [Transderm-Scop 1.5 mg Patch*] Discharge Instructions following Orthopedic Surgery: Activity: * Weight Bearing as tolerated * Continue physical therapy and occupational therapy exercises as shown * Home PT Wound care: * OK to shower on post-op day 3, no bathing, swimming, or submerging wound. * Use gentle soap, pat dry. Cover with gauze, LAURIE wrap or tape. * Visiting home nurse to do wound checks. Call Orthopedic office for: * Increased drainage * Redness * Increased pain * Fever Go to ER with shortness of breath or chest pain. Diet: * Regular diet * Increase fluids and fiber to prevent constipation. * Continue to use stool softeners, call office if no bowel motion within 48 hours. Medications See Home Medication List in your packet for medications that you should take after discharge. DVT Prophylaxis: Eliquis Dosin.5 mg, 1 tab every 12 hours x 30 days. Increases bleeding tendency Pain Control: Hankamer Dosin/325 mg 1 tab for moderate and 2 tabs for severe pain by mouth every 4 hours as needed for pain. Maximum of 10 tabs per day. Hold for sedation and wean off as soon as pain allows Please note that Hankamer contains 325 mg Tylenol (acetaminophen) per tab . Maximum daily dose of Tylenol is 4000 mg from all sources. Antibiotics are required prior to any dental work. Remove scopolamine patch from behind your ear in 3 days ( placed 09/21) FOLLOW UP: Follow up with [Perry] Within 10-14 days, call for appointment Please call our office with any questions or concerns ([phone]) [facility]
[2019-09-21] MEDS: Cyclobenzaprine TAB* 10 MG PO PRN (09:40)
[2019-09-21] MEDS: Magnesium Hydroxide LIQ* 30 ML UDC PO SCH (09:40)
[2019-09-21] MEDS: Docusate CAP* 100 MG PO SCH (09:40)
[2019-09-21] MEDS: Vitamin THERAPEUTIC TAB PO SCH (09:40)
[2019-09-21] MEDS: Apixaban* 2.5 MG TAB PO SCH (09:40)
[2019-09-21] MEDS ORDERED: Bisacodyl SUPP* 10 MG SUPP PR PRN (12:16)
[2019-09-24] MEDS ORDERED: Scopolamine PATCH Remove* 1 NOTE MISC PATCH OFF SCH (09:00)
== END 2019-09-21 13:10 | disposition home or self-care (01) | DRG 302 ==
LOC: AA 06:31 → SSU 13:41
PROVIDERS: ADMIT Orthopaedic Surgery Adult Reconstructive Orthopaedic Surgery; ATTEND Orthopaedic Surgery Adult Reconstructive Orthopaedic Surgery
PROC: 0SRD069 Replacement of Left Knee Joint with Oxidized Zirconium on Polyethylene Synthetic Substitute, Cemented, Open Approach (ICD-10-PCS; principal; 2019-09-19 09:45)
DX: M17.0 Bilateral primary osteoarthritis of knee (principal); K21.9 Gastro-esophageal reflux disease without esophagitis; I10 Essential (primary) hypertension; M06.00 Rheumatoid arthritis without rheumatoid factor, unspecified site; G47.33 Obstructive sleep apnea (adult) (pediatric); F41.9 Anxiety disorder, unspecified; M25.762 Osteophyte, left knee; E78.2 Mixed hyperlipidemia; E55.9 Vitamin D deficiency, unspecified; R11.0 Nausea; Z87.11 Personal history of peptic ulcer disease; Z88.6 Allergy status to analgesic agent
CPT/HCPCS: 36415; 80048; 85014; 85018; 85049; A9270-GY; C1776; J0690; J0780; J1100; J1170; J1885; J2250; J2270; J2405; J2704; J2795

== ENCOUNTER 2019-12-21 10:53 | Inpatient (IN) | payer OTHER ==
--- NOTE | 2019-12-14 14:05 | HP ---
HISTORY AND PHYSICAL: DATE OF SURGERY: 12/21/19 DATE OF OFFICE VISIT: 12/11/19 SURGEON: Ruby Amador MD * (DICTATED BY TIM SPAULDING) PROCEDURE: Right total knee arthroplasty. CHIEF COMPLAINT: Right knee pain. HISTORY OF PRESENT ILLNESS: Ms. Butterfield is a 59-year-old female with end- stage osteoarthritis of the right knee. She has failed conservative treatment and elected to proceed with a right total knee arthroplasty. PAST MEDICAL HISTORY: Denies. PAST SURGICAL HISTORY: Left total knee arthroplasty and bunionectomy. CURRENT MEDICATIONS: 1. Ibuprofen 400 mg as needed. 2. Multivitamin. 3. Vitamin D. ALLERGIES: PERCOCET causing sweats, chills, nausea and vomiting. FAMILY HISTORY: Coronary artery disease, diabetes, and hypertension. SOCIAL HISTORY: She is a 59-year-old female, she live alone. She does not smoke. REVIEW OF SYSTEMS: A complete 14-point review of systems is reviewed with the patient, is all negative and noncontributory. She denies history of DVT, PE, hepatitis, HIV or anesthesia problems. PHYSICAL EXAMINATION GENERAL: She is well developed, well nourished, in no acute distress. VITAL SIGNS: She stands 66.5 inches tall, weighs 212 pounds. Her blood pressure is 128/78, her heart rate is 60. HEENT: Normocephalic, atraumatic. NECK: Supple. No palpable lymph nodes. PULMONARY: Lungs are clear to auscultation bilaterally. CARDIO: Regular rate and rhythm. Strong S1 and S2. ABDOMEN: Soft, nontender, nondistended. NEUROLOGIC: She is alert and oriented x3. MUSCULOSKELETAL: Right lower extremity: Skin is intact. There are no open wounds or abrasions. She has a moderate effusion, some tenderness along the medial and lateral joint line. She is able to dorsiflex and plantar flex. There is a 2+ dorsalis pedis pulse and intact sensation. ASSESSMENT AND PLAN: Ms. Butterfield is a 59-year-old female with end-stage osteoarthritis of the right knee. She has failed conservative treatment and elected to proceed with a right total knee arthroplasty. The surgery is scheduled for 12/21/[address] Amador discussed the risks and benefits of the surgery at today's visit. All of her questions were answered. She will follow up with Dr. Amador 2 weeks after the surgery. TIM SPAULDING [id number]/[facility] #: [id number] DYLAN
[~2019-12-21 10:53] MED LIST changes: +Acetaminophen TAB* 325 MG PO ONE; -Famotidine IV* 10 MG/ML 2 ML (20 mg) IV ONE; +Tranexamic Acid 1 GM/100 mL BAG (PREMIX) outpatient IV SCH; -Tranexamic Acid 1,000 MG in NS 0.9% 50 ML* (outpatient use) IV SCH; +celeCOXIB CAP* 200 MG PO ONE
--- OUTSIDE RECORDS SUMMARY | 2019-12-21 10:57 | XMS REPORT | Continuity of Care Document ---
:1960 External Reference #:[id number] Author Name Ruby Amador M.D. (transmitted by agent of provider Jannette Lindsay) Address [address] [place] [address] Care Team Providers Name Role Phone Ngozi Saavedra MD - Internal Care Team Information Seismograph Helper [phone] Medicine Problems Active Problems Provider Date Localized, primary osteoarthritis Ruby Amador M.D. Onset: 07/24/2019 Social History Type Date Description Comments Sex Unknown ETOH Use Occasionally consumes alcohol Tobacco Use Start: Unknown Patient has never smoked Recreational Drug Use Denies Drug Use Smoking Status Reviewed: 12/11/19 Patient has never smoked Exercise Type/Frequency Exercises sporadically Allergies, Adverse Reactions, Alerts Active Allergies Reaction Severity Comments Date Percocet vomit 07/09/2016 Medications Active Medications SIG Qnty Indications Ordering Date Provider Allan zheng dx: 1units Ruby Amador, 09/13/2019 [facility] s.p left knee M.D. replacementl 66" 214 lbs Raised Toilet Seat s/p left knee 1units Ruby Amador, 09/13/2019 replacement 66" M.D. [facility] 214lbs Adjustable shower bench s/p 1unshirley Amador, 09/13/2019 Bath/Shower left knee M.D. Seat/Back replacement 66" [facility] 214lbs Long Arm Grabber 1units Rubin Mcintosh 05/18/2017 MD Maria Del Carmen [facility] Toliet Seat Lift 1units Rubin Mcintosh 05/18/2017 MD Maria Del Carmen [facility] Walker With 5 Inch 1units Rubin Mcintosh 05/17/2017 Gabriella Joyce MD [facility] Shower Chair 1units [facility]osh [facility] Rubin Mcintosh 05/17/2017 Jose Joyce MD Ibuprofen 1 tab by mouth as Unknown 400mg needed for pain Tablets Vitamin D 2000 units by mouth Unknown daily Multi Vitamin 1 by mouth every day Unknown Tablets History Medications Amoxicillin take 1 tab every 21caps Ruby Amador, 11/03/2019 - 500mg 8 hours for 7 M.D. 12/05/2019 Capsules days Scopolamine apply patch to 4units Ruby Amador, 09/25/2019 - 1mg/3Days just behind ear. M.D. 12/05/2019 Patches 72HR remove after 72 hours. Tramadol HCL 1 tab every 8 42tabs Ruby Amador, 09/06/2019 - 50mg Tablets hours as needed M.D. 10/05/2019 for pain Medications Administered in Office Medication SIG Qnty Indications Ordering Provider Date Depomedrol 40MG Ruby Amador M.D. 11/03/2019 Injection Depomedrol 40MG Ruby Amador M.D. 09/06/2019 Injection Inj, Regadenoson, 0.1 MG Anthony Che M.D. [...] Available Vital Signs Date Vital Result Comment 12/11/2019 10:07am Height 66.5 inches 5'6.50" Weight 212.00 lb Heart Rate 60 /min BP Systolic 128 mmHg BP Diastolic 78 mmHg Respiratory Rate 18 /min Pain Level 5 BMI (Body Mass Index) 33.7 kg/m2 12/06/2019 10:45am Height 66.5 inches 5'6.50" Weight 209.25 lb with shoes Heart Rate 72 /min BP Systolic Sitting 138 mmHg Lue (regular cuff) BP Diastolic Sitting 88 mmHg Lue (regular cuff) BP Systolic Standing 144 mmHg BP Diastolic Standing 90 mmHg BMI (Body Mass Index) 33.3 kg/m2 Ejection Fraction none Results Test Acquired Facility Test Result H/L Range Note Date Inr/Protime 09/07/2019 [facility] Inr 0.96 Normal 0.82-1.[address] [place] [address] [phone] Laboratory test 09/07/2019 [facility] Activated 30.1 seconds Normal 26.0-38.[address] [place] [address] Thrombo Time [phone] Type & Screen 09/07/2019 [facility] Patient Blood B Negative [address] [place] [address] [phone] Antibody Screen NEGATIVE 1 Standard intensity warfarin therapeutic range: 2.0-3.0 High intensity warfarin therapeutic range: 2.5-3.5 Procedures Date Code Description Status 12/11/2019 Aspiration &/Or Inj Of Ganglion Cyst(S) Any Location Completed 12/06/2019 54709 EKG Tracing & Interpretation Completed 11/03/2019 68378 Inject/Drain Joint/Bursa Major W/O US Completed 09/19/2019 25126 TKR Total Knee Replacement Completed 09/19/2019 56915 TKR Total Knee Replacement Completed 09/06/201933975 Inject/Drain Joint/Bursa Major W/O US Completed 08/25/2019 23733 Stress Test Completed 08/25/2019 29037 Myocardial Perfusion Imaging Tomographic (Spect) Multiple Completed Studies 08/16/2019 04881 EKG Tracing & Interpretation Completed Medical Devices Description No Information Available Encounters Type Date Location Provider Dx Diagnosis Office Visit 10/06/2019 [facility] Ruby Amador, Z47.1 Aftercare following 10:45a at [facility] joint replacement surgery M25.561 Pain in right knee M25.461 Effusion, right knee M17.11 Unilateral primary osteoarthritis, right knee Z96.652 Presence of left artificial knee joint Office Visit 08/30/2019 [facility] Z01.810 Encounter for 10:30a [facility] preprocedural [facility] cardiovascular examination R06.02 Shortness of breath M17.0 Bilateral primary osteoarthritis of knee Office Visit 08/16/2019 2:00p [facility] Anthony Ibanez R06.02 Shortness of Of Adelaida Che M.D. breath Z01.810 Encounter for preprocedural cardiovascular examination M17.12 Unilateral primary osteoarthritis, left knee [facility] at [facility] Amador osteoarthritis of [place] knee M25.561 Pain in right knee M25.562 Pain in left knee M25.462 Effusion, left knee M25.461 Effusion, right knee Assessments Date Code Description Provider 12/11/2019 M17.11 Unilateral primary osteoarthritis, right Ruby Amador M.D. knee 12/11/2019 M25.461 Effusion, right knee Ruby Amador M.D. 12/11/2019 M25.561 Pain in right knee Ruby Amador M.D. 12/06/2019 Z01.810 Preoperative cardiovascular examination Anthony Che M.D. 11/03/2019 Z47.1 Aftercare following joint replacement Ruby Amador M.D. surgery 11/03/2019 Z96.652 Presence of left artificial knee joint Ruby Amador M.D. 11/03/2019 M25.561 Pain in right knee Ruby Amador M.D. 11/03/2019 M25.461 Effusion, right knee Ruby Amador M.D. 10/06/2019 Z47.1 Aftercare following joint replacement Ruby Amador M.D. surgery 10/06/2019 M25.561 Pain in right knee Ruby Perry, M.D. 10/06/2019 M25.461 Effusion, right knee Ruby Perry, M.D. 10/06/2019 M17.11 Unilateral primary osteoarthritis, right Ruby Perry, M.D. knee 10/06/2019 Z96.652 Presence of left artificial knee joint Ruby Perry, M.D. 09/19/2019 M17.12 Unilateral primary osteoarthritis, left Jannette Serrato Lindsay, PA knee 09/19/2019 M17.12 Unilateral primary osteoarthritis, left Ruby Perry, M.D. knee 09/06/2019 M25.562 Pain in left knee Ruby Perry, M.D. 09/06/2019 M25.462 Effusion, left knee Ruby Perry, M.D. 09/06/2019 M17.12 Unilateral primary osteoarthritis, left Ruby Perry, M.D. knee 09/06/2019 M25.561 Pain in right knee Ruby Perry, M.D. 09/06/2019 M25.461 Effusion, right knee Ruby Perry, M.D. 09/06/2019 M17.11 Unilateral primary osteoarthritis, right Rubysimone Amador, M.D. knee 08/30/2019 Z01.810 Preoperative cardiovascular examination [...] Ruby Amador M.D. Plan of Treatment Future Appointment(s):12/21/2019 2:30 pm - Ervin Arteaga PA-C at [facility] at [id number]/21/2019 2:30 pm - TIM Roman at [facility] at [id number]/21/2019 2:30 pm - Ruby Amador M.D. at [facility] at [id number]/11/2019 - Ruby Amador M.D.M17.11 Unilateral primary osteoarthritis, right kneeFollow up:Follow up: 2 weeks after uilgjkmE93.461 Effusion, right kneeM25.561 Pain in right knee Functional Status Description No Information Available Mental Status Description No Information Available Referrals Description No Information Available
--- OUTSIDE RECORDS SUMMARY | 2019-12-21 10:57 | XMS REPORT | Continuity of Care Document ---
:1960 External Reference #:[id number] Author Name Anthony Che M.D. (transmitted by agent of provider Gill Cortez) Address [address] [place] [address] Care Team Providers Name Role Phone Ngozi Saavedra MD - Internal Care Team Information Fowl Blood Tester Medicine Problems Active Problems Provider Date Localized, [...] Allan zheng dx: 1units Ruby Amador, 09/13/2019 [facility] s.p left knee M.D. replacementl 66" 214 lbs Raised Toilet Seat s/p left knee 1units Ruby Amador, 09/13/2019 replacement 66" M.D. [facility] 214lbs Adjustable shower bench s/p 1units Ruby Amador, 09/13/2019 Bath/Shower left knee M.D. Seat/Back replacement 66" [facility] 214lbs Long Arm Grabber 1units Rubin Mcintosh 05/18/2017 MD Maria Del Carmen [facility] Toliet Seat Lift 1units Rubin Mcintosh 05/18/2017 MD Maria Del Carmen [facility] Walker With 5 Inch 1units Rubin Mcintosh 05/17/2017 Gabriella Joyce MD [facility] Shower Chair 1units Rubin Mcintosh 05/17/2017 MD Joseph Berkowitz 1units Rubin Mcintosh 05/17/2017 Jose Joyce MD Ibuprofen 1 tab by mouth as Unknown 400mg needed for pain Tablets Vitamin D 2000 units by mouth Unknown daily Multi Vitamin 1 by mouth every day Unknown Tablets History Medications Amoxicillin take 1 tab every 21caps Ruby Amador, 11/03/2019 - 500mg 8 hours for 7 M.D. 12/05/2019 Capsules days Scopolamine apply patch to 4units Rubypenny Amador, 09/25/2019 - 1mg/3Days just behind ear. [...] To 40 Millicuries Injection Technetium TC 99M TetrofosminAnthony M.D. 08/25/2019 Per Unit Dose Up To [...] kg/m2 Ejection Fraction none Results Test Acquired Date Facility Test Result H/L Range Note Urinalysis Profile 12/11/2019 [facility] Urine Color Yellow [address] [place] [address] [phone] Urine Appearance Cloudy Urine Specific Britton 1.011 Normal 1.010-1.030 Urine pH 7.0 Normal 5-9 Urine Urobilinogen Negative Negative Urine Ketones Negative Negative Urine Protein Negative Negative Urine Leukocytes 2+ Abnormal Negative Urine Blood Negative Negative Urine Nitrite Negative Negative Urine Bilirubin Negative Negative Urine Glucose Negative Negative Urine White Blood Cell 1+(6-10/hpf) Abnormal Absent Urine Red Blood Cell Trace(0-2/hpf) Absent Urine Bacteria Absent Absent Urine Squamous Epithelial Cell Present Abnormal Absent Urine Amorphous Crystals Present Abnormal Absent CBC Auto 12/11/2019 [facility] White Blood 4.7 10^3/uL Normal 3.5-10.[address] [place] [address] [phone] Red Blood Count 5.00 10^6/uL High 3.70-4.87 Hemoglobin 14.4 g/dL Normal 12.0-16.0 Hematocrit 43 % Normal 35-47 Mean Corpuscular Volume 86 fL Normal 80-97 Mean Corpuscular Hemoglobin 29 pg Normal 27-31 Mean Corpuscular HGB Conc 33 g/dL Normal 31-36 Red Cell Distribution Width 15 % Normal 10-15 Platelet Count 307 10^3/uL Normal 150-450 Mean Platelet Volume 7.6 fL Normal 7.4-10.4 Abs Neutrophils 2.3 10^3/uL Normal 1.5-7.7 Abs Lymphocytes 1.9 10^3/uL Normal 1.0-4.8 Abs Monocytes 0.3 10^3/uL Normal 0-0.8 Abs Eosinophils 0.1 10^3/uL Normal 0-0.6 Abs Basophils 0.0 10^3/uL Normal 0-0.2 Abs Nucleated RBC 0.0 10^3/uL Granulocyte % 49.9 % Lymphocyte % 40.8 % Monocyte % 6.5 % Eosinophil % 1.9 % Basophil % 0.9 % Nucleated Red Blood Cells % 0.1 Inr/Protime 12/11/2019 [facility] Inr 0.97 Normal 0.82-1.[address] [place] [address] [phone] Laboratory test 12/11/2019 [facility] Activated 29.0 Normal 26.0-38.[address] [place] [address] Thrombo Time [phone] Type & Screen 12/11/2019 [facility] Patient B Negative [address] [place] [address] [phone] Antibody Screen NEGATIVE Comp Metabolic 12/11/2019 [facility] Sodium 138 mmol/L Normal 135-[address] [place] [address] [phone] Potassium 4.5 mmol/L Normal 3.5-5.0 Chloride 103 mmol/L Normal 101-111 Co2 Carbon Dioxide 30 mmol/L Normal 22-32 Anion Gap 5 mmol/L Normal 2-11 Glucose 95 mg/dL Normal 70-100 Blood Urea Nitrogen 12 mg/dL Normal 6-24 Creatinine 0.55 mg/dL Normal 0.51-0.95 BUN/Creatinine Ratio 21.8 High 8-20 Calcium 11.2 mg/dL High 8.6-10.3 Total Protein 6.5 g/dL Normal 6.4-8.9 Albumin 4.0 g/dL Normal 3.2-5.2 Globulin 2.5 g/dL Normal 2-4 Albumin/Globulin Ratio 1.6 Normal 1-3 Total Bilirubin 0.60 mg/dL Normal 0.2-1.0 Alkaline Phosphatase 159 U/L High 34-104 Alt 27 U/L Normal 7-52 Ast 21 U/L Normal 13-39 Egfr Non- 112.7 >60 Egfr 136.4 >60 2 Inr/Protime 09/07/2019 [facility] Inr 0.96 Normal 0.82-1.[address] [place] [address] [phone] Laboratory test 09/07/2019 [facility] Activated 30.1 Normal 26.0-38.[address] [place] [place] [address] Thrombo Time [phone] Type & Screen 09/07/2019 [facility] Patient B Negative [address] [place] [address] [phone] Antibody Screen NEGATIVE 1 Standard intensity warfarin therapeutic range: 2.0-3.0 High intensity warfarin therapeutic range: 2.5-3.5 2 Because ethnic data is not always readily available, this report includes an eGFR for both -Americans and non- Americans. The National Kidney Disease Education Program (NKDEP) does not endorse the use of the MDRD equation for patients that are not between the ages of 18 and 70, are , have extremes of body size, muscle mass, or nutritional status, or are non- or non-. According to the National Kidney Foundation, irrespective of diagnosis, the stage of the disease is based on the level of kidney function: Stage Description GFR(mL/min/1.73 m(2)) 1 Kidney damage with normal or decreased GFR 90 2 Kidney damage with mild decrease in GFR 60-89 3 Moderate decrease in GFR 30-59 4 Severe decrease in GFR 15-29 5 Kidney failure <15 (or dialysis) 3 Standard intensity warfarin therapeutic range: 2.0-3.0 High intensity warfarin therapeutic range: 2.5-3.5 Procedures Date Code Description Status 12/11/2019 Aspiration &/Or Inj Of Ganglion Cyst(S) Any Location Completed 11/03/2019 Inject/Drain Joint/Bursa Major W/O US Completed 09/19/2019 13498 TKR Total Knee Replacement Completed 09/19/2019 32793 TKR Total Knee Replacement Completed 09/06/201903728 Inject/Drain Joint/Bursa Major W/O US Completed 08/25/2019 20970 Stress Test Completed 08/25/2019 22904 Myocardial Perfusion Imaging Tomographic (Spect) Multiple Completed Studies 08/16/2019 58908 EKG Tracing & Interpretation Completed Medical Devices Description No Information Available Encounters Type Date Location Provider Dx Diagnosis Office Visit 12/06/2019 [facility] Anthony Ibanez Z01.810 Encounter for 11:00a Of Adelaida Che M.D. preprocedural cardiovascular examination M17.11 Unilateral primary osteoarthritis, right knee Office Visit 10/06/2019 10:45a [facility] Ruby Amador Z47.1 Aftercare at [facility] following joint replacement surgery M25.561 Pain in right knee M25.461 Effusion, right knee M17.11 Unilateral primary osteoarthritis, right knee Z96.652 Presence of left artificial knee joint Office Visit 08/30/2019 [facility] Z01.810 Encounter for 10:30a Cardiology Bulmaro Che M.D. preprocedural [facility] cardiovascular examination R06.02 Shortness of breath M17.0 Bilateral primary osteoarthritis of knee Office Visit 08/16/2019 2:00p [facility] Anthony Ibanez R06.02 Shortness of Of Adelaida Che M.D. breath Z01.810 Encounter for preprocedural cardiovascular examination M17.12 Unilateral primary osteoarthritis, left knee Office Visit 07/24/2019 1:30p Yola Beltran M17.0 Bilateral primary Orthopedics at [place] Amador osteoarthritis of [place] knee M25.561 Pain in right knee M25.562 Pain in left knee M25.462 Effusion, left knee M25.461 Effusion, right knee Assessments Date Code Description Provider 12/11/2019 M17.11 Unilateral primary osteoarthritis, right Ruby Amador M.D. knee 12/11/2019 M25.461 Effusion, right knee Ruby Amador M.D. 12/11/2019 M25.561 Pain in right knee Ruby Amador M.D. 12/06/2019 Z01.810 Preoperative cardiovascular examination Anthony Che M.D. 12/06/2019 M17.11 Unilateral primary osteoarthritis, right Anthony Che M.D. knee 11/03/2019 Z47.1 Aftercare following joint replacement Ruby Amador M.D. surgery 11/03/2019 Z96.652 Presence of left artificial knee joint Romain aWshburn.D. 11/03/2019 M25.561 Pain in right knee Ruby Amador, M.D. 11/03/2019 M25.461 Effusion, right knee Ruby Amador, M.D. 10/06/2019 Z47.1 Aftercare following joint replacement Ruby Amador M.D. surgery 10/06/2019 M25.561 Pain in right knee Ruby Amador, M.D. 10/06/2019 M25.461 Effusion, right knee Ruby Amador, M.D. 10/06/2019 M17.11 Unilateral primary osteoarthritis, right Ruby Amador M.D. knee 10/06/2019 Z96.652 Presence of left artificial knee joint Romain Washburn.D. 09/19/2019 M17.12 Unilateral primary osteoarthritis, left Jannette Lindsay PA knee 09/19/2019 M17.12 Unilateral primary osteoarthritis, left Milana WashburnDSimona knee 09/06/2019 M25.562 Pain in left knee Ruby Amador, M.D. 09/06/2019 M25.462 Effusion, left knee Ruby Amador M.D. 09/06/2019 M17.12 Unilateral primary osteoarthritis, left Ruby Amador MSimonaDSimona knee 09/06/2019 M25.561 Pain in right knee Ruby Amador M.D. 09/06/2019 M25.461 Effusion, right knee Ruby Amador M.D. 09/06/2019 M17.11 Unilateral primary osteoarthritis, right Ruby Amador M.DSimona knee 08/30/2019 Z01.810 Preoperative cardiovascular examination Anthony [...] Ruby Amador M.D. Plan of Treatment Future Appointment(s):01/05/2020 1:00 pm - Ruby Amador M.D. at [facility] at Gjznst7012/21/2019 2:30 pm - Ervin Arteaga PA-C at [facility] at Ne[place]1212/21/2019 2:30 pm - TIM Roman at [facility] at Vurhqh8212/21/2019 2:30 pm - Ruby Amador M.D. at [facility] at Yiitpt1312/11/2019 - Ruby Amador M.D.M17.11 Unilateral primary osteoarthritis, right kneeFollow up:Follow up: 2 weeks after mpdyczwU52.461 Effusion, right kneeM25.561 Pain in right knee Functional Status Description No Information Available Mental Status Description No Information Available Referrals Description No Information Available
--- OUTSIDE RECORDS SUMMARY | 2019-12-21 10:57 | XMS REPORT | Continuity of Care Document ---
:1960 External Reference #:[id number] Author Name Ruby Amador M.D. (transmitted by agent of provider Linda Smyth) Address [address] [place] [address] Care Team Providers Name Role Phone Ngozi Saavedra MD - Internal Care Team Information Search Manager Medicine Problems Active Problems Provider Date Localized, primary osteoarthritis Ruby Amador M.D. Onset: 07/24/2019 Social History Type Date Description Comments Sex Unknown ETOH Use Occasionally consumes alcohol Tobacco Use Start: Unknown Patient has never smoked Recreational Drug Use Denies Drug Use Smoking Status Reviewed: 11/03/19 Patient has never smoked Exercise Type/Frequency Exercises sporadically Allergies, Adverse Reactions, Alerts Active Allergies Reaction Severity Comments Date Percocet vomit 07/09/2016 Medications Active Medications SIG Qnty Indications Ordering Date Provider Amoxicillin take 1 tab every 8 21caps Ruby Amador, 11/03/2019 500mg hours for 7 days M.D. Capsules Scopolamine apply patch to just 4units Ruby Amador, 09/25/2019 1mg/3Days behind ear. remove M.D. Patches 72HR after 72 hours. Allan zheng dx: 1units Ruby Amador, 09/13/2019 Misc s.p left knee M.D. replacementl 66" 214 lbs Raised Toilet Seat s/p left knee 1units Ruby Amador, 09/13/2019 replacement 66" M.D. Misc 214lbs Adjustable shower bench s/p 1units Ruby Amador, 09/13/2019 Bath/Shower Seat/Back left knee M.D. replacement 66" Misc 214lbs Long Arm Grabber 1units Rubin F 05/18/2017 MisMD Ryan Hopkinsiet Seat Lift 1units [facility]18[facility] Walker With 5 Inch 1units [facility] 05/17/2017 Gabriella Joyce MD [facility] Shower Chair 1units [facility] 05/17/2017 [facility] 05[facility]17/2017 [facility] Ibuprofen 1 tab by mouth in Unknown 800mg Tablets am and 600 mg tab @night. Hydrocodone-Acetamino 1 tabs by mouth 60tabs Ruby Perry, phen every 4-6 hours as M.D. 5-325mg Tablets needed for pain Vitamin D Unknown Metronidazole one tablet by mouth Unknown 500mg 3 times daily for 7 Tablets days History Medications Tramadol HCL 1 tab every 8 42tabs Ruby Amador, 09/06/2019 - 50mg hours as needed M.D. 10/05/2019 Tablets for pain Medications Administered in Office Medication SIG Qnty Indications Ordering Provider Date Depomedrol 40MG Ruby Amador M.D. 09/06/2019 Injection [...] Available Vital Signs Date Vital Result Comment 11/03/2019 10:23am Height 66.5 inches 5'6.50" Weight 205.00 lb Heart Rate 91 /min BP Systolic 142 mmHg BP Diastolic 82 mmHg Body Temperature 96.7 F Pain Level 5 BMI (Body Mass Index) 32.6 kg/m2 10/06/2019 10:52am Height 66.5 inches 5'6.50" Weight 205.00 lb Heart Rate 80 /min BP Systolic 138 mmHg BP Diastolic 84 mmHg Respiratory Rate 12 /min Body Temperature 97.4 F Pain Level 6 BMI (Body Mass Index) 32.6 kg/m2 Results Test Acquired Facility Test Result H/L Range Note Date Inr/Protime 09/07/2019 [facility] Inr 0.96 Normal 0.82-1.[address] [place] [address] [phone] Laboratory test 09/07/2019 [facility] Activated 30.1 seconds Normal 26.0-38.[address] [place] [address] Thrombo Time [phone] Type & Screen 09/07/2019 [facility] Patient Blood B Negative [address] [place] [address] [phone] Antibody Screen NEGATIVE 1 Standard intensity warfarin therapeutic range: 2.0-3.0 High intensity warfarin therapeutic range: 2.5-3.5 Procedures Date Code Description Status 09/19/2019 21210 TKR Total Knee Replacement Completed 09/19/2019 94384 TKR Total Knee Replacement Completed 09/06/2019 79607 Inject/Drain Joint/Bursa Major W/O US Completed 08/25/2019 85349 Stress Test Completed 08/25/2019 90007 Myocardial Perfusion Imaging Tomographic (Spect) Multiple Completed Studies 08/16/2019 03033 EKG Tracing & Interpretation Completed Medical Devices Description No Information Available Encounters Type Date Location Provider Dx Diagnosis Office Visit 10/06/2019 [facility] Stacie Washburn.1 Aftercare following 10:45a at [place] [facility] joint replacement surgery M25.561 Pain in right knee M25.461 Effusion, right knee M17.11 Unilateral primary osteoarthritis, right knee Z96.652 Presence of left artificial knee joint [place] [facility] Z01.810 Encounter for 10:30a [facility] Che preprocedural [facility] cardiovascular examination R06.02 Shortness of breath M17.0 Bilateral primary osteoarthritis of knee Office Visit 08/16/2019 2:00p [facility] Anthony Ibanez R06.02 Shortness of Of [facility] Riley Che breath Z01.810 Encounter for preprocedural cardiovascular examination M17.12 Unilateral primary osteoarthritis, left knee Office Visit 07/24/2019 1:30p [place] Ruby M17.0 Bilateral primary Orthopedics at [facility] Amador osteoarthritis of [place] knee M25.561 Pain in right knee M25.562 Pain in left knee M25.462 Effusion, left knee M25.461 Effusion, right knee Assessments Date Code Description Provider 11/03/2019 Z47.1 Aftercare following joint replacement Ruby Amador M.D. surgery 11/03/2019 M25.561 Pain in right knee Ruby Amador M.D. 10/06/2019 Z47.1 Aftercare following joint replacement Ruby Amador M.D. surgery 10/06/2019 M25.561 Pain in right knee Ruby Amador M.D. 10/06/2019 M25.461 Effusion, right knee Ruby Amador M.D. 10/06/2019 M17.11 Unilateral primary osteoarthritis, right Ruby Amador M.D. knee 10/06/2019 Z96.652 Presence of left artificial knee joint Ruby Amador M.D. 09/19/2019 M17.12 Unilateral primary osteoarthritis, left Jannette Lindsay, PA knee 09/19/2019 M17.12 Unilateral primary osteoarthritis, left Ruby Amador M.D. knee 09/06/2019 M25.562 Pain in left [...] Ruby Amador M.D. Plan of Treatment Future Appointment(s):12/06/2019 11:00 am - Anthony Che M.D. at [facility]12/11/2019 10:00 am - Ruby Amador M.D. at [facility]12/21/2019 2:30 pm - Ruby Amador M.D. at [facility]11/03/2019 - Ruby Amador M.D.47.1 Aftercare following joint replacement surgeryFollow up:Follow up: for H&PM25.561 Pain in right knee Functional Status Description No Information Available Mental Status Description No Information Available Referrals Description No Information Available
[2019-12-21] MEDS ORDERED: ceFAZolin 2 GM PREMIX in ORs 2 GM/50 ML BAG ONE (11:17)
[2019-12-21] MEDS ORDERED: celeCOXIB CAP* 200 MG ONE (11:17)
[2019-12-21] MEDS ORDERED: Acetaminophen TAB* 325 MG ONE (11:17)
[2019-12-21] MEDS ORDERED: Buffered Lidocaine 1% SYRIN* 1 ML/SYRINGE INTRADERM ONE (11:18)
[2019-12-21] MEDS ORDERED: Midazolam* 1 MG/ML 2 ML VIAL (2 MG) ONE ×2 (13:42→15:39)
[2019-12-21] MEDS ORDERED: fentaNYL* 50 MCG/ML 5 ML VIAL (250 MCG VIAL) ONE (13:42)
[2019-12-21] MEDS ORDERED: Propofol* 500 MG/50 ML BTL ONE ×2 (13:45→15:53)
[2019-12-21] MEDS ORDERED: Lidocaine 2% PF * 5 ML VIAL ONE (13:45)
[2019-12-21] MEDS ORDERED: ROPIVACAINE 5 MG/ML 30 ML BTL (0.5%) ONE ×2 (13:49→14:54)
[2019-12-21] MEDS ORDERED: fentaNYL* 50 MCG/ML 2 ML VIAL (100 MCG VIAL) ONE (14:21)
[2019-12-21] MEDS ORDERED: EPHEDrine (Pressors)* 50 MG/ML VIAL ONE (14:52)
[2019-12-21] MEDS ORDERED: PROCHLORPERAZINE INJ 5 MG/ML 2 ML VIAL IV PRN (15:24)
[2019-12-21] MEDS ORDERED: Nalbuphine* 10 MG/ML 1 ML VIAL IV PRN (15:24)
[2019-12-21] MEDS ORDERED: Naloxone* 0.4 MG/ML 1 ML VIAL IV PRN (15:24)
[2019-12-21] MEDS ORDERED: diPHENhydraMINE IV* 50 MG/ML 1 ml VIAL (BENADRYL) IV PRN ×2 (15:24→15:33)
[2019-12-21] MEDS ORDERED: HYDROmorphone INJ1* 1 MG/ML SYRINGE IV PRN (15:28)
[2019-12-21] MEDS ORDERED: HYDROmorphone TAB* 2 MG PO PRN (15:30)
[2019-12-21] MEDS ORDERED: Magnesium Hydroxide LIQ* 30 ML UDC PO PRN (15:33)
[2019-12-21] MEDS ORDERED: Ondansetron TAB* 4 MG PO PRN (15:33)
[2019-12-21] MEDS ORDERED: Morphine INJ* 2 MG/ML 1 ML SYRINGE (TWO MG - NEW SYRINGE VERSION) IV PRN (15:33)
[2019-12-21] MEDS ORDERED: diPHENhydraMINE PO* 25 MG PO PRN (15:33)
[2019-12-21] MEDS ORDERED: Ondansetron ODT TAB* 4 MG PO PRN (15:33)
[2019-12-21] MEDS ORDERED: Polyethylene Glycol 3350* 17 GM PACKET PO PRN (15:33)
[2019-12-21] MEDS ORDERED: Phenylephrine 40 MCG/ML SYRINGE ONE (16:18)
--- NOTE | 2019-12-21 18:07 | OP ---
Operative Report - Blank - Operative Report Date of Operation: 12/21/19 Note: DAVID HYMAN 1960 Date of Surgery: 12/21/19 Ruby Amador MD Umbrella Tipper Hand: Ian DUMONT did help throughout the procedure with preparation of the knee, wound retraction, manipulation of the knee, and wound closure. Anesthesiologist: Dr. Romo Anesthesia Type: Spinal Preoperative Diagnosis: Right severe degenerative osteoarthritis of the knee Postoperative Diagnosis: As above Procedure Performed: Right Total Knee Arthroplasty Tourniquet time: 52 minutes Complications: None Specimen: Bone and cartilage from the right knee joint sent to pathology. Hardware Used: Cemented Del Valle and Nephew total knee hardware was used - For the femur a size 5N right oxinium legion posterior stabilized femoral component, for the tibia a size 4 right ary II tibial baseplate, for the insert a size 9mm 3-4 posterior stabilized articular polyethylene insert, and for the patella a size 35 3-peg all poly patella. Brief History/Indication: DAVID HYMAN was known in clinic and had a history of severe right knee pain and swelling. She failed conservative treatment with anti-inflammatories, pain pills, intra-articular injections and physical therapy. She elected to undergo right total knee arthroplasty due to continued pain and decreased quality of life. Radiographs showed severe end stage osteoarthritis of the knee with bone on bone contact. Informed consent was obtained from the patient. She understood the risks of surgery included but were not limited to: bleeding, infection, damage to nearby structures, intraoperative fracture, nerve palsy, failure of the hardware, early loosening, knee stiffness or loss of motion, anesthesia complications, stroke, heart attack , blood clot and . She wished to proceed. Intra-Operative Findings: Intraoperatively the patient was noted to have severe loss of cartilage in all 3 compartments of the knee. Description of the Procedure: DAVID HYMAN was identified in the preanesthesia unit. Her right knee was marked as the correct operative side. Informed consent was signed and placed in the chart. The patient was taken to the operating room and placed under anesthesia without complication. A gallagher catheter was placed. A tourniquet was placed on the right thigh. The right lower extremity was prepped and draped in the usual sterile fashion. Preoperative time-out was made to correctly identify the patient, side and site. Appropriate intraoperative antibiotics were given within one hour of incision. Tourniquet was inflated. A midline incision was made and carried sharply down to the extensor mechanism. A new 10 blade was used to make a standard medial parapatellar arthrotomy. The patella was subluxed laterally. Electrocautery was used to dissect soft tissue off the superomedial tibia to the midsagittal plane. The knee was flexed up. The anterior horn of the lateral meniscus and the ACL were sharply incised. A drill was used to enter the distal femur. The intramedullary distal femoral cutting guide was pinned on the distal femur. The oscillating saw was used to make the distal femoral cut. The external rotation guide was pinned on the distal femur and the distal femur was sized to a size 5. The size 5 multi-cutting jig was pinned on the distal femur. The oscillating saw was used to make the appropriate 4 chamfer cuts. Next the PCL was completely released. The extramedullary tibial cutting guide was pinned on the proximal tibia and the oscillating saw was used to make the proximal tibial cut perpendicular to the mechanical axis of the tibia. The bone was carefully removed. The knee was brought out into full extension. The spacer block was placed and had excellent fit with the knee in full extension. The medial and lateral ligaments were well balanced. The flexion and extension gaps were well balanced. The knee was flexed up. Lamina lyric writer was placed both medially and laterally. Any remaining meniscus was removed with electrocautery. Curved osteotome was used to remove any posterior osteophytes. The tibial tray and drop tyler were placed and confirmed a satisfactory tibial cut. The size 5 right narrow femoral trial was impacted onto the distal femur. This trial had excellent fit and stability. The box for the posterior stabilized implant was prepared using a box cut osteotome and a reamer. Next a tibial tray trial and 9 mm insert trial was placed. The knee was taken through a range of motion and had full extension to 130 degrees of flexion. Patellofemoral tracking was satisfactory. The patella was inverted and sized to a size 35. Three peg holes were drilled through the size 35 drill guide. The trial patella was placed and the knee was taken through a range of motion. There was satisfactory patellofemoral tracking. All trials were removed. The tibia was subluxed anteriorly and sized to a size 4. The proximal tibial was prepared with a size 4 keel punch. All bony cut surfaces were irrigated with sterile saline and dried. Final implants were cemented into place starting with the tibia, followed by the femur, and last the patella. A 9 mm insert trial was placed and the knee was brought into full extension. Tourniquet was turned down and the knee was copiously irrigated with sterile saline. Electrocautery was used to obtain meticulous hemostasis. Once the cement had fully cured, the insert trial was removed. Any excess cement was removed from around the hardware and capsule. Final insert chosen was a 9 mm posterior stabilized Ary II articular insert size 3-4. Stability of the insert was checked and noted to be stable. The extensor mechanism was closed using number 1 vicryls. The rest of the incision was closed in a layered fashion using 0 and 2-0 vicryls. The skin was closed using 3-0 nylon suture. Sterile xeroform, 4x4s and webril were used to cover the incision. Emmanuel wrap and cold pack were used to cover the dressings. The patients anesthesia was reversed without difficulty. She was taken to the PACU in stable condition. Intended weight-bearing will be as tolerated.
[2019-12-21] MEDS: Ondansetron INJ* 2 MG/ML VIAL IV PRN (18:28)
[2019-12-21] MEDS: Lactated Ringers 1000 ML Bag* 1,000 ML IV SCH (18:31)
[2019-12-21] MEDS: HYDROcodone/ACETAMIN 5-325 MG* 1 TAB PO PRN (19:29)
[2019-12-21] MEDS: HYDROmorphone INJ1* 1 MG/ML SYRINGE IV PRN (21:13)
[2019-12-21] MEDS: Magnesium Hydroxide LIQ* 30 ML UDC PO SCH (21:23)
[2019-12-21] MEDS: Docusate CAP* 100 MG PO SCH (21:23)
[2019-12-21] MEDS: Cyclobenzaprine TAB* 10 MG PO PRN (22:54)
[2019-12-21] MEDS: ceFAZolin 1 GM ADVAN(*) 1 GM in NS 0.9% 50 ML* 50 ML IVPB SCH (22:58)
[2019-12-21] MEDS: traMADol TAB* 50 MG PO PRN (22:58)
[2019-12-21] MEDS ORDERED: Metoclopramide IV* 5 MG/ML 2 ML VIAL IV ONE (23:13)
[2019-12-21] MEDS: Acetaminophen TAB* 325 MG PO SCH (23:29)
[2019-12-22] MEDS: HYDROcodone/ACETAMIN 5-325 MG* 1 TAB PO PRN ×5 (00:06→20:10)
[2019-12-22] MEDS: Ondansetron INJ* 2 MG/ML VIAL IV PRN (03:32)
[2019-12-22] MEDS: HYDROmorphone INJ1* 1 MG/ML SYRINGE IV PRN ×2 (03:34→07:27)
[2019-12-22] MEDS: Lactated Ringers 1000 ML Bag* 1,000 ML IV SCH (04:32)
[2019-12-22 05:26] LABS: Hematocrit 36 % (35-47); Hemoglobin 12.3 g/dL (12.0-16.0); Mean Platelet Volume 7.3 fL (7.4-10.4); Platelet Count 232 10^3/uL (150-450)
[2019-12-22] MEDS: Acetaminophen TAB* 325 MG PO SCH ×3 (05:36→21:51)
[2019-12-22 05:42] LABS: BUN/Creatinine Ratio 20.8 (8-20); Calcium 9.1 mg/dL (8.6-10.3); EGFR African American 159.6 (>60); EGFR Non-African American 131.9 (>60); Potassium 3.9 mmol/L (3.5-5.0)
[2019-12-22] MEDS: ceFAZolin 1 GM ADVAN(*) 1 GM in NS 0.9% 50 ML* 50 ML IVPB SCH ×2 (06:32→14:05)
[2019-12-22] MEDS: PROCHLORPERAZINE INJ 5 MG/ML 2 ML VIAL IV PRN ×2 (08:12→17:29)
[2019-12-22] MEDS: Docusate CAP* 100 MG PO SCH ×2 (08:17→20:09)
[2019-12-22] MEDS: Cyclobenzaprine TAB* 10 MG PO PRN ×3 (08:17→23:42)
[2019-12-22] MEDS: Apixaban* 2.5 MG TAB PO SCH ×2 (08:17→20:09)
[2019-12-22] MEDS: Vitamin THERAPEUTIC TAB PO SCH (08:17)
[2019-12-22] MEDS: Magnesium Hydroxide LIQ* 30 ML UDC PO SCH ×2 (08:27→20:10)
[2019-12-22] MEDS: traMADol TAB* 50 MG PO PRN ×3 (10:04→23:45)
--- NOTE | 2019-12-22 10:34 | PN ---
Progress Note - Progress Note Date of Service: 12/22/19 SOAP: Subjective: [Pt was seen this morning lying in bed. States that she is having trouble with nausea and vomiting. She has attempted zofran and scopolamine patch. She is now trying compazine. She is otherwise doing well. ] Objective: [General: pt is alert and oriented x3. NAD. MSK, RLEL: Dressing is c/d/i. +df/pf, NVI, calf soft and non tender. 2+ DP pulse. Vital Signs Temp 97.8 F 12/22/19 08:33 Pulse 92 12/22/19 08:33 Resp 16 12/22/19 10:04 BP 115/62 12/22/19 08:33 Pulse Ox 92 12/22/19 08:33 Intake & Output 12/21/19 12/22/19 12/22/19 18:59 06:59 18:59 Intake Total 2135 Output Total 800 Balance 1335 Weight 460 lb 12.258 oz Intake: IV Fluids 990 LR 990 IVPB 55 ABX - CEFAZOLIN 55 Oral 1090 Output: Urine 0 Vanessa 500 Emesis 300 ] Assessment: [POD 1 RTKA ] Plan: [Continue with IV fluids Continue with PT Percocet for pain medication Eliquis 2.5 mg bid x 30 days Possible DC today should nausea improve and completes PT, otherwise possible tomorrow. ]
[2019-12-23] MEDS: HYDROcodone/ACETAMIN 5-325 MG* 1 TAB PO PRN ×3 (00:09→09:57)
[2019-12-23] MEDS: Cyclobenzaprine TAB* 10 MG PO PRN ×2 (05:30→11:25)
[2019-12-23] MEDS: Acetaminophen TAB* 325 MG PO SCH (05:32)
[2019-12-23 05:45] LABS: Hematocrit 34 % (35-47); Hemoglobin 11.6 g/dL (12.0-16.0); Mean Platelet Volume 7.5 fL (7.4-10.4); Platelet Count 222 10^3/uL (150-450)
[2019-12-23] MEDS: traMADol TAB* 50 MG PO PRN (08:16)
[2019-12-23] MEDS: Apixaban* 2.5 MG TAB PO SCH (08:19)
[2019-12-23] MEDS: Magnesium Hydroxide LIQ* 30 ML UDC PO SCH (08:19)
[2019-12-23] MEDS: Docusate CAP* 100 MG PO SCH (08:19)
[2019-12-23] MEDS: Vitamin THERAPEUTIC TAB PO SCH (08:19)
--- NOTE | 2019-12-23 09:06 | PN ---
Progress Note - Progress Note Date of Service: 12/23/19 SOAP: Subjective: POD#2 from R TKA with Dr. Amador on 12/21/19. Patient seen OOB in chair this morning. She states her nausea/vomiting has improved with switch to [place] from percocet. She would like to go home with plan for VNS today after PT. She denies CP, SOB, f/c. Objective: [General: A&O x 3. NAD sitting in chair RLE: Dressing changed today, Incision C/D/I with mild ecchymosis. Calf and thigh soft and nontender with no palpable cords. She was able to lift leg actively to assist with dressing change. + PF/DF ankle. DP pulse 2+] Assessment: [POD#2 R TKA on 12/21/[address] Amador Plan: [D/C home today with plan for VNS Cont Eliquis 2.5 BID x 30 days [place] for pain management Cyclobenzaprine PRN for muscle spasms Cont PT Will f/u with Dr. Amador in clinic 10-14 days post op Vital Signs Temp Pulse Resp BP Pulse Ox 98.6 F 82 18 154/71 94 12/23/19 07:26 12/23/19 07:26 12/23/19 08:18 12/23/19 07:26 12/23/19 07:26 Laboratory Last Values Hgb 11.6 g/dL (12.0-16.0) L 12/23/19 05:27 Hct 34 % (35-47) L 12/23/19 05:27 Plt Count 222 10^3/uL (150-450) 12/23/19 05:27 MPV 7.5 fL (7.4-10.4) 12/23/19 05:27 Sodium 133 mmol/L (135-145) L 12/22/19 05:10 Potassium 3.9 mmol/L (3.5-5.0) 12/22/19 05:10 Chloride 101 mmol/L (101-111) 12/22/19 05:10 Carbon Dioxide 27 mmol/L (22-32) 12/22/19 05:10 Anion Gap 5 mmol/L (2-11) 12/22/19 05:10 BUN 10 mg/dL (6-24) 12/22/19 05:10 Creatinine 0.48 mg/dL (0.51-0.95) L 12/22/19 05:10 Est GFR ( Amer) 159.6 (>60) 12/22/19 05:10 Est GFR (Non-Af Amer) 131.9 (>60) 12/22/19 05:10 BUN/Creatinine Ratio 20.8 (8-20) H 12/22/19 05:10 Glucose 143 mg/dL (70-100) H 12/22/19 05:10 Calcium 9.1 mg/dL (8.6-10.3) 12/22/19 05:10 ]
--- NOTE | 2019-12-23 09:19 | DS ---
Orthopedic Discharge Summary - Discharge Summary Date of Admission:12/21/19 Date of Discharge: 12/23/19 Date of Surgery: 12/21/19 Attending Orthopedic Provider: Dr. Amador Pre-operative Diagnosis: Right knee arthritis Operative Procedure: Right total knee arthroplasty Disposition of Patient:Home Home care vs Outpatient services: VNS Condition of Patient: Stable Pain medication RX at discharge: [place] 5mg/325mg DVT prophylaxis RX at discharge: Eliquis 2.5mg BID x 30 days History: DAVID HYMAN is a 59 year old F with years of increasingly severe Right knee pain. Patient has failed conservative management and has elected to undergo a right total knee replacement Hospital Course: DAVID was admitted to [facility] on 12/21/19. Patient underwent a Right TKA without complication followed by a brief recovery in PACU and transfer to the Short Stay Surgical Unit in stable condition. Our hospitalist service, physical therapy and occupational therapy also participated in this patients care. Post-op day 1: patient was alert and in no acute distress. Dressing was clean, dry and intact. Operative extremity dorsiflexion and plantarflexion intact, sensation intact to light touch distally , DP2+. Post-op day two: dressing was changed, incision was clean, dry and intact. Patient was deemed to be medically and orthopedically stable for discharge. Physical therapy goals were met. Home Medications Medication Instructions Recorded Confirmed Type Cholecalciferol TAB* [Vitamin D 2,000 units PO QAM 03/15/18 12/21/19 History TAB*] Multivitamin [Multivitamins] 1 tab PO QAM 12/11/19 12/21/19 History Apixaban* [Eliquis*] 2.5 mg PO BID 30 Days #60 tab 12/23/19 Rx Cyclobenzaprine TAB* [Flexeril 10 10 mg PO Q6H PRN 7 Days #28 tab 12/23/19 Rx MG TAB*] MDD 4 HYDROcodone/ACETAMIN 5-325 MG* 2 tab PO Q4H PRN 7 Days #70 tab 12/23/19 Rx [[place] 5-325 TAB*] MDD 10 Discharge Instructions following Orthopedic Surgery: Activity: * Weight Bearing as tolerated * Continue physical therapy and occupational therapy exercises as shown * If you have elected to have home physical therapy, continue therapy exercises at home. If you have elected outpatient physical therapy, please start therapy as an outpatient right away. Wound care: * OK to shower on post-op day 3, no bathing, swimming, or submerging wound. * Use gentle soap, pat dry. Cover with gauze, LAURIE wrap or tape. * If you elected to have a visiting home nurse, they will perform wound checks. Call Orthopedic office for: * Increased drainage * Redness * Increased pain * Fever Go to ER with shortness of breath or chest pain. Diet: * Regular diet * Increase fluids and fiber to prevent constipation. * Continue to use stool softeners, call office if no bowel motion within 48 hours. Medications See Home Medication List in your packet for medications that you should take after discharge. DVT Prophylaxis: Eliquis Dosin.5 mg, 1 tab every 12 hours x 30 days Pain Control: [place] 5/325 mg 1 tab for moderate pain and 2 tabs for severe pain by mouth every 4 hours as needed. Maximum of 10 tabs per day. Hold for sedation, wean off as soon as pain allows Please note that Percocet contains Tylenol (acetaminophen). Maximum daily dose of Tylenol is 4000 mg from all sources. Cyclobenzaprine 10mg PO q6h as needed for muscle spasms. Max daily dose 4. Antibiotics are required prior to any dental work. FOLLOW UP: Follow up with Within 10-14 days, call for appointment Please call our office with any questions or concerns ([phone])
[2019-12-23 11:57] VITALS: BP 135/88
== END 2019-12-23 12:20 | disposition home health service (06) | DRG 302 ==
LOC: AA 10:53 → SSU 15:33
PROVIDERS: ADMIT Orthopaedic Surgery Adult Reconstructive Orthopaedic Surgery; ATTEND Orthopaedic Surgery Adult Reconstructive Orthopaedic Surgery
PROC: 0SRC069 Replacement of Right Knee Joint with Oxidized Zirconium on Polyethylene Synthetic Substitute, Cemented, Open Approach (ICD-10-PCS; principal; 2019-12-21 14:00)
DX: M17.11 Unilateral primary osteoarthritis, right knee (principal); M25.761 Osteophyte, right knee; Z88.8 Allergy status to other drugs, medicaments and biological substances
CPT/HCPCS: 36415; 80048; 85014; 85018; 85049; 88305; 88311; A9270-GY; C1776; J0690; J0780; J1170; J2250; J2270; J2405; J2704; J2765; J2795; J3010

== ENCOUNTER 2024-08-22 18:31 | Observation (INO) ==
[2024-08-22 19:04] LABS: ABS Basophils 0.1 10^3/uL (0.0-0.1); ABS Eosinophils 0.2 10^3/uL (0.0-0.5); ABS Lymphocytes 3.8 10^3/uL (1.0-4.8); ABS Monocytes 0.5 10^3/uL (0.0-0.9); ABS Neutrophils 5.1 10^3/uL (1.5-7.6); ABS Nucleated RBC 0.01 10^3/ul; Hematocrit 37.7 % (35-45); Hemoglobin 12.8 g/dL (11.5-14.3); Lymphocyte % 38.9 %; Mean Corpuscular Hemoglobin 29.7 pg (27-33); Mean Corpuscular Hgb Conc 33.8 g/dL (31-36); Mean Platelet Volume 7.5 fL (7.5-11.2); Nucleated Red Blood Cells % 0.1 %/100WBC (0.0-0.8); Platelet Count 289 10^3/uL (150-450); Red Blood Count 4.29 10^6/uL (3.63-4.92); Red Cell Distribution Width 14.5 % (12-17); White Blood Count 9.7 10^3/uL (3.8-11.8)
[2024-08-22 19:11] LABS: INR 1.04 (0.85-1.14)
[2024-08-22 19:47] LABS: Albumin 3.9 g/dL (3.2-5.2); Albumin/Globulin Ratio 1.4 (1-3); Calcium 9.7 mg/dL (8.6-10.3); Creatinine, Serum 0.85 mg/dL (0.51-0.95); Globulin 2.8 g/dL (2-4); Potassium 4.2 mmol/L (3.5-5.0); Total Bilirubin 0.3 mg/dL (0.2-1.0); Total Protein 6.7 g/dL (6.4-8.9)
[2024-08-22 20:33] LABS: High Sensitivity Troponin 1 Hr 5 pg/mL (<15)
[2024-08-22] MEDS: Iohexol 350 (CONTRAST) 500 ML MDV IV ONE (21:36)
[2024-08-23] MEDS ORDERED: Albuterol HFA INHALER 8 gm MDI INH PRN (01:53)
[2024-08-23] MEDS: Lidocaine PATCH 5% PATCH TRANSDERM SCH (05:24)
[2024-08-23 05:44] LABS: ABS Basophils 0.1 10^3/uL (0.0-0.1); ABS Eosinophils 0.2 10^3/uL (0.0-0.5); ABS Lymphocytes 3.2 10^3/uL (1.0-4.8); ABS Monocytes 0.5 10^3/uL (0.0-0.9); ABS Neutrophils 3.4 10^3/uL (1.5-7.6); Eosinophil % 3.1 %; Hematocrit 36.6 % (35-45); Hemoglobin 12.4 g/dL (11.5-14.3); Lymphocyte % 42.8 %; Mean Corpuscular Hgb Conc 33.8 g/dL (31-36); Mean Corpuscular Volume 88.7 fL (80-97); Mean Platelet Volume 7.3 fL (7.5-11.2); Nucleated Red Blood Cells % 0.1 %/100WBC (0.0-0.8); Platelet Count 253 10^3/uL (150-450); Red Blood Count 4.13 10^6/uL (3.63-4.92); Red Cell Distribution Width 14.3 % (12-17); White Blood Count 7.4 10^3/uL (3.8-11.8)
[2024-08-23 06:25] LABS: HDL Cholesterol 45.8 mg/dL; Magnesium 1.9 mg/dL (1.9-2.7)
[2024-08-23 06:26] LABS: Calcium 9.1 mg/dL (8.6-10.3); Creatinine, Serum 0.57 mg/dL (0.51-0.95); eGFR CKD-EPI 100.8 (>60)
[2024-08-23] MEDS ORDERED: Regadenoson 0.4 MG/5 ML SYRINGE ONE (08:11)
[2024-08-23] MEDS ORDERED: Aminophylline 25 MG/ML VIAL ONE (08:11)
[2024-08-23 10:45] VITALS: BP 147/96
[2024-08-23] MEDS ORDERED: Bismuth Subsalicylate (BTL) 525 MG/30 ML (BULK BTL) PO PRN (10:58)
[2024-08-23] MEDS: Cholecalciferol (VIT D3) 1,000 unit TAB PO SCH (11:16)
[2024-08-23] MEDS: Vitamin THERAPEUTIC TAB PO SCH (11:16)
[2024-08-23] MEDS: ZINC 50 MG PO SCH (11:18)
== END 2024-08-23 12:40 | disposition home or self-care (01) ==
LOC: ED 18:31 → INTOOBSV 08-23 00:26 → EDHOLD 08-23 00:26 → SUATTDRO 08-23 00:26 → MEDTELE 08-23 10:17
PROVIDERS: ADMIT Student in an Organized Health Care Education/Training Program; ATTEND Internal Medicine